=== PATIENT | male | born 1955 | race Caucasian/White ===

== ENCOUNTER → 2020-02-19 13:43 | Outpatient (BNVA) | payer MEDICARE, OTHER, SELFPAY | PROVIDERS: PCP Internal Medicine; Referring Provider Internal Medicine; Visit Provider Internal Medicine | DX: I47.1 Supraventricular tachycardia (principal); G47.33 Obstructive sleep apnea (adult) (pediatric); Z99.89 Dependence on other enabling machines and devices | CPT/HCPCS: 99214 ==

== ENCOUNTER 2020-03-31 12:34 | Outpatient (REF) | payer MEDICARE, OTHER, SELFPAY ==
[2020-03-31 14:02] LABS: Estimated Average Glucose 123 mg/dL; Hemoglobin A1C 151.0802 umol/L; Hemoglobin A1c % 5.9 %
[2020-03-31 14:08] LABS: Anion Gap 11 (12-20); Blood Urea Nitrogen 10 mg/dL (9-16); Calcium 9.1 mg/dL (8.4-10.2); Carbon Dioxide 29 mmol/L (22-29); Chloride 102 mmol/L (96-108); Estimated Glomerular Filt Rate > 60; Glucose Random 103 mg/dL (60-115); Potassium 4.7 mmol/l (3.3-5.1); Sodium 137 mmol/L (135-145)
== END 2020-03-31 12:35 | disposition home or self-care (01) ==
LOC: HO.10HDL 12:34
PROVIDERS: Visit Provider Internal Medicine
DX: R73.03 Prediabetes (principal); I10 Essential (primary) hypertension
CPT/HCPCS: 80048; 83036

== ENCOUNTER 2020-07-12 14:51 | Outpatient (REF) | payer MEDICARE, OTHER, SELFPAY ==
--- NOTE | ~2020-07-12 | US_ITS ---
EXAMINATION: US RETROPERITONEAL LIMITED (RENAL ONLY) CLINICAL INFORMATION: Status post partial right nephrectomy. Renal stone. COMPARISON: Renal ultrasound 09/26/2019. TECHNIQUE: Routine grayscale imaging of kidneys was performed. FINDINGS: RIGHT KIDNEY: 9.1 x 6.9 x 5.3 cm (SAG x AP x TRV). The kidney is normal in size, contour, and echogenicity. Renal cortical thickness is normal. There are multiple echogenic foci scattered throughout the kidney, question vascular calcifications. There is an anechoic cyst midpole measuring 1.1 x 1.1 x 1.1 cm. There is no caliectasis or hydronephrosis. LEFT KIDNEY: 14.3 x 6.4 x 7.2 cm (SAG x AP x TRV). The kidney is normal in size, contour, and echogenicity. Renal cortical thickness is normal. There are scattered anechoic cysts. Upper pole cyst medially measures 2.0 x 1.6 x 2.2 cm. A lower pole cyst measures 1.1 x 1.0 x 1.5 cm. A lower pole lateral cyst measures 1.8 x 1.6 x 1.8 cm. Partially exophytic cyst lower pole left kidney measures 1.7 x 1.6 x 1.7 cm. There is an echogenic stone versus vascular calcification upper/midpole. It measures 0.8 x 0.6 x 0.7 cm. US/US renal BI IMPRESSION: Multiple cysts left kidney. Small echogenic stone versus vascular calcification upper/midpole left kidney. No caliectasis or hydronephrosis. Multiple echogenic foci are seen in the right kidney without caliectasis or hydronephrosis. Midpole right renal cyst seen previously not visualized on the present exam.
[2020-07-12 18:03] LABS: Prostate Specific Antigen < 0.05 ng/mL (<0.05-4.0)
== END 2020-07-12 14:52 | disposition home or self-care (01) ==
LOC: HO.US 14:51
PROVIDERS: PCP Internal Medicine; Visit Provider Urology
DX: Z12.5 Encounter for screening for malignant neoplasm of prostate (principal); N20.0 Calculus of kidney; C61 Malignant neoplasm of prostate
CPT/HCPCS: 36415; 76775; 84153

== ENCOUNTER → 2020-07-21 08:33 | Outpatient (BNVA) | payer MEDICARE, OTHER, SELFPAY | PROVIDERS: PCP Internal Medicine; Visit Provider Urology | DX: Z13.89 Encounter for screening for other disorder (principal) | CPT/HCPCS: Q3014 ==

== ENCOUNTER → 2020-08-19 10:47 | Outpatient (BNVA) | payer MEDICARE, OTHER, SELFPAY | PROVIDERS: PCP Internal Medicine; Visit Provider Internal Medicine | DX: I47.1 Supraventricular tachycardia (principal); G47.33 Obstructive sleep apnea (adult) (pediatric); Z99.89 Dependence on other enabling machines and devices | CPT/HCPCS: 93005; 99212 ==

== ENCOUNTER 2020-09-30 10:43 | Emergency (ER) | payer MEDICARE, OTHER, SELFPAY ==
--- NOTE | ~2020-09-30 | CT_ITS ---
EXAMINATION: CT ABDOMEN AND PELVIS WITHOUT CONTRAST CLINICAL INFORMATION: Right flank pain. COMPARISON: Renal ultrasound 07/12/2020, CT abdomen and pelvis noncontrast 10/03/2017 TECHNIQUE: Multidetector volumetric imaging was performed from the superior aspect of the liver through the pubic symphysis. Sagittal and coronal reformatted images were obtained on the technologist's workstation. This CT examination was performed using dose optimization techniques as appropriate, variously including the following: *Automated exposure control *Adjustment of mA and/or kV according to patient size (this includes techniques or standardized protocols for targeted exams where dose is matched to indication/reason for exam; i.e. extremities or head) *Use of iterative reconstruction technique DLP: 1062 mGy-cm FINDINGS: LUNG BASES: Respiratory motion artifact. No airspace consolidation or effusion. LIVER, GALLBLADDER, AND BILIARY TREE: Upper limits of normal size similar to prior exam. Liver surface is smooth. Parenchyma homogeneous. No focal hepatic parenchymal lesion or intrahepatic ductal dilatation. Prior cholecystectomy. Common duct unremarkable. PANCREAS: Unremarkable. SPLEEN: Normal in size. Multiple calcified splenic granulomata are again noted. ADRENAL GLANDS: Unremarkable. KIDNEYS AND URETERS: The kidneys are similar to prior exam. Again, there is scarring lower pole right kidney, scattered small renal cysts, and multiple bilateral punctate nonobstructing intrarenal calculi. There are no ureteral calculi. No right hydronephrosis. Mild fullness left collecting system is seen. BLADDER: Unremarkable. GASTROINTESTINAL TRACT: There is no bowel obstruction or inflammatory changes in the bowel or mesentery. The appendix is not seen with certainty. There are no inflammatory changes around the terminal ileum or cecum. No ascites or fluid collection. No pneumatosis or free air. ABDOMINAL WALL: No significant hernia is appreciated. Borderline fat-containing umbilical hernia under 2 cm. LYMPH NODES: No lymphadenopathy. VASCULAR: Unremarkable. PELVIC VISCERA: Unremarkable. OSSEOUS STRUCTURES: Degenerative changes lumbosacral spine with vacuum disc L5-S1 and facet degeneration L4-S1. Bilateral L5 spondylolysis. No spondylolisthesis. CT/CT abdomen pelvis wo con IMPRESSION: 1. Multiple small bilateral intrarenal nonobstructing calculi. No ureteral calculi. No right hydronephrosis. Mild fullness left collecting system. Old scarring right renal lower pole. 2. Prior cholecystectomy. No ductal dilatation. 3. No bowel obstruction or inflammatory changes in bowel or mesentery.
[2020-09-30 11:09] VITALS: BP 167/91; PULSE 72; RESP 18; TEMP 36.6; O2SAT 96; BMI 40.7
[2020-09-30 11:40] LABS: Glucose Urine UA NEG (NEG); Leukocyte Esterase Urine NEG (NEG); Nitrite Urine NEG (NEG); PH 5.5 (5.0-8.0); Specific Gravity - Urine 1.025 (1.005-1.025); Urine Blood 3+ (NEG); Urine Ketones NEG (NEG); Urine Protein 1+ MG/DL (NEG-TRACE)
[2020-09-30 11:42] LABS: Appearance Urine CLOUDY; Color Urine RED
[2020-09-30 11:49] LABS: WBC Urine 0 /HPF (0-4)
[2020-09-30 11:50] LABS: Squamous Epithelial Cell Urine TRACE /LPF
--- NOTE | 2020-09-30 12:10 | ED_ITS ---
HPI - Male Genitourinary General Chief complaint: Urogenital-Male Stated complaint: kidney stones Time Seen by Provider: 09/30/20 12:06 Source: patient Mode of arrival: ambulatory Limitations: no limitations History of Present Illness HPI Narrative: 65 yo male with a past medical history of SVT, BOO on CPAP at night, prostate cancer status post prostatectomy, renal cancer status post partial nephrectomy, kidney stones here with complaints of right flank pain with radiation to the right groin and right testicle x2 days. Patient is complaining of voiding small amounts, frequency but only dribbling. Did have some hematuria this morning and passed a large clot and now is voiding pink urine. No fevers or chills. Does have some nausea no vomiting. Followed by Dr. Crump for recurrent renal stones. Is on Flomax Related Data Home Medications Medication Instructions Recorded Confirmed metoprolol tartrate 50 mg tablet 50 mg PO BID tab 02/19/20 08/19/20 simvastatin 20 mg tablet 20 mg PO DAILY 02/19/20 08/19/20 cholestyramine (with sugar) 4 gram g PO 07/21/20 08/19/20 oral powder Previous Rx's Medication Instructions Recorded diltiazem HCl 120 mg 120 mg PO DAILY #30 cap 02/26/20 capsule,extended release 24 hr allopurinol 100 mg tablet 100 mg PO DAILY 90 Days #90 tab 06/04/20 pyridoxine (vitamin B6) 100 mg 100 mg PO DAILY 90 Days #90 tab 07/21/20 tablet tamsulosin 0.4 mg capsule 0.4 mg PO BEDTIME 30 Days #30 cap 08/31/20 Allergies Allergy/AdvReac Type Severity Reaction Status Date / Time Yeast [YEAST] Allergy Intermediate HIGH Verified 08/19/20 10:59 DOSES-SEES BLACK SPOTS, HOT FLASHES Review of Systems Review of Systems: Yes all other systems are reviewed and are negative Constitutional: Constitutional: Reports no additional constitutional complaints, Denies body ache(s), Denies chills, Denies fever(s), Denies headache(s) and Denies weakness Eyes: Eyes: Reports no additional eye complaints and Denies change in vision ENT: Reports system reviewed and no additional complaints, except as documented, Denies dizziness, Denies headache(s), Denies nasal congestion, Denies nasal discharge and Denies neck pain Cardiovascular: Cardiovascular: Reports no additional cardiovascular complaints, Denies chest pain, Denies leg edema and Denies dyspnea Respiratory: Respiratory: Reports no additional respiratory complaints, Denies cough and Denies dyspnea Gastrointestinal: Gastrointestinal: Reports no additional gastrointestinal complaints, Denies abdominal pain, Denies diarrhea, Denies nausea and Denies vomiting Genitourinary: Genitourinary: Reports hematuria, Reports difficulty urinating, Denies dysuria, Reports flank pain, Reports testicular pain, Reports urinary frequency, Reports urinary hesitancy, Denies urinary incontinence and Reports urinary urgency Musculoskeletal: Musculoskeletal: Reports no additional musculoskeletal complaints, Reports back pain, Denies arthralgias, Denies joint swelling, Denies neck pain, Denies numbness and Denies tingling Integumentary/Breasts: Skin/Breast: Reports system reviewed and no additional complaints, except as docu and Denies rash Neurologic: Reports system reviewed and no additional complaints, except as documented, Denies Abnormal speech present, Denies dizziness, Denies headache(s), Denies numbness, Denies tingling and Denies weakness PMFSH Past Medical History Attestation statement: The following information was validated with the patient. Source: old records reviewed and nursing notes reviewed Medical History BOO on CPAP SVT (supraventricular tachycardia) Surgical History History of biopsy of bladder History of laparoscopic cholecystectomy (09/22/15) History of partial nephrectomy (~2001) History of prostatectomy (~2004) Family History Family History Father No problems noted. Mother No problems noted. Social History Social History Smoking Status: Never smoker Advance Directives: Yes Advance Directives Information Provided: No Advance Directives on File: No Physical Exam Vital Signs: Vital Signs: Last Vital Signs Temp 97.8 F 09/30/20 11:09 Pulse 72 09/30/20 11:09 Resp 18 09/30/20 11:09 BP 167/91 H 09/30/20 11:09 Pulse Ox 96 09/30/20 11:09 Body Mass Index 40.7 Const: General: cooperative, healthy appearing, comfortable and no acute distress Orientation/consciousness: patient oriented x3 Limitations: no limitations HENMT: Head: Yes normal to inspection Ears: hearing grossly normal bilaterally General nose exam: Normal external nose present Face and sinus: Yes normal facial exam Mouth: Normal oral and palatal mucosa present Throat: Yes posterior oropharynx normal Eyes: General: appearance normal, both eyes and all related structures Pupils: Equal, round and reactive pupils present Neck: Neck: Yes normal visual inspection Chest: Chest palpation & inspection: normal inspection of the chest Resp: Effort & Inspection: normal respiratory effort Auscultation: clear to auscultation bilaterally Cardio: Rate: regular rate Rhythm: regular rhythm Peripheral pulses: Peripheral pulses 2+ throughout GI: Inspection: Yes normal to inspection Palpation (GI): Soft to palpation and Tenderness to palpation present (GI) (mild R groin/no guarding ) Auscultation: normal bowel sounds : General: Yes no CVA tenderness Male General Exam: Yes normal external exam Back/Spine/Pelvis: Back: no CVA tenderness Thoracic/Lumbar Spine: thoracic and lumbar spine normal to inspection Skin: General skin exam: no rashes or lesions noted Neuro: General: patient oriented x3, no focal motor deficits and normal sensation to monofilament Cranial nerves: Yes Equal, round and reactive pupils present Cognition (Neuro): normal cognition Speech: No Abnormal speech present Gait exam (Neuro): Normal gait present Motor exam (neuro): 5/5 motor strength present throughout Extrem: General: Yes normal to inspection, Yes no pedal edema and Yes no calf tenderness Course Course Course Narrative: 65-year-old male with a history of renal colic, prostate cancer with stricture, renal cancer with partial nephrectomy on the right ear with complaints of right flank pain with radiation to the right testicle and right groin with urinary urgency, frequency, voiding small amounts and an episode of hematuria this morning with a large clot passed. Urine is now pink color. On exam the patient has some mild tenderness in the right groin. No obvious CVAT. Hemodynamically stable. Will need labs, UA, postvoid residual ultrasound, CTA/P. Will place PIV for NSB, IV toradol. 1300-patient called me into the room. He had a voiding episode urgency and some discomfort and feels like he passed a stone. Urinal shows a small stone in the base the urinal. 1357-CT shows no obstructing kidney stone. It does show multiple stones within the kidneys and a copy of the report was given to the patient. After passing the kidney stone here the patient is feeling much better and his pain is resolved. He is now voiding normally with no difficulty. Reviewed worrisome signs/symptoms and when to return to ED. Comfortable with discharge home. MDM - Male Genitourinary MDM Narrative Medical decision making narrative: Renal colic, UTI, pyelonephritis Medical Records Attestation: I reviewed the patient's medical records. Lab Data Attestation: I reviewed the patient's lab results. Result diagrams: 09/30/20 13:00 09/30/20 13:00 Labs: Lab Results 09/30/20 09/30/20 09/30/20 Range/Units 11:21 13:00 13:00 WBC 14.5 H (4.8-10.8) X10*3/uL RBC 4.93 (4.60-5.80) X10*6/uL Hgb 15.0 (14.0-18.0) g/dl Hct 46.2 (42-52) % MCV 93.7 (80-98) fL MCH 30.4 (27.0-33.0) pg MCHC 32.5 (31.0-36.0) g/dl RDW 13.2 (11.0-16.0) % Plt Count 242 (160-400) X10*3/uL MPV 8.7 L (9.4-12.4) fL Immature Gran % (Auto) 0.4 (0.0-0.4) % Neut % (Auto) 86.4 H (45-73) % Lymph % (Auto) 6.8 L (20-40) % Garfield % (Auto) 6.2 (2-11) % Eos % (Auto) 0.0 (0-4) % Baso % (Auto) 0.2 (0-2) % Lymph # (Auto) 1.0 L (1.2-4.9) X10*3/uL Garfield # (Auto) 0.9 (0.1-1.2) X10*3/uL Eos # (Auto) 0.0 (0.0-0.4) X10*3/uL Baso # (Auto) 0.0 (0.0-0.2) X10*3/uL Abs Immat Gran (auto) 0.06 H (0.00-0.03) X10*3/uL Absolute Neuts (auto) 12.5 H (2.0-8.3) X10*3/uL Absolute Nucleated RBC 0.000 (0.0-0.012) X10*3/uL Nucleated RBC % (auto) 0.0 (0.0-0.2) /100WBC Hold Blue Top SEE NOTE Sodium (135-145) mmol/L Potassium (3.3-5.1) mmol/L Chloride (96-108) mmol/L Carbon Dioxide (22-29) mmol/L Anion Gap (12-20) BUN (9-16) mg/dL Creatinine (0.5-1.4) mg/dL Estim Creat Clear Calc Estimated GFR Random Glucose (60-115) mg/dL Calcium (8.4-10.2) mg/dL Urine Color RED Urine Appearance CLOUDY Urine pH 5.5 (5.0-8.0) Ur Specific Mchenry 1.025 (1.005-1.025) Urine Protein 1+ H (NEG-TRACE) MG/DL Urine Glucose (UA) NEG (NEG) MG/DL Urine Ketones NEG (NEG) MG/DL Urine Blood 3+ H (NEG) Urine Nitrite NEG (NEG) Ur Leukocyte Esterase NEG (NEG) Urine RBC 76-150 H (0) /HPF Urine WBC 0 (0-4) /HPF Ur Squamous Epith Cells TRACE /LPF Urine Bacteria NONE /LPF 09/30/20 Range/Units 13:00 WBC (4.8-10.8) X10*3/uL RBC (4.60-5.80) X10*6/uL Hgb (14.0-18.0) g/dl Hct (42-52) % MCV (80-98) fL MCH (27.0-33.0) pg MCHC (31.0-36.0) g/dl RDW (11.0-16.0) % Plt Count (160-400) X10*3/uL MPV (9.4-12.4) fL Immature Gran % (Auto) (0.0-0.4) % Neut % (Auto) (45-73) % Lymph % (Auto) (20-40) % Garfield % (Auto) (2-11) % Eos % (Auto) (0-4) % Baso % (Auto) (0-2) % Lymph # (Auto) (1.2-4.9) X10*3/uL Garfield # (Auto) (0.1-1.2) X10*3/uL Eos # (Auto) (0.0-0.4) X10*3/uL Baso # (Auto) (0.0-0.2) X10*3/uL Abs Immat Gran (auto) (0.00-0.03) X10*3/uL Absolute Neuts (auto) (2.0-8.3) X10*3/uL Absolute Nucleated RBC (0.0-0.012) X10*3/uL Nucleated RBC % (auto) (0.0-0.2) /100WBC Hold Blue Top Sodium 139 (135-145) mmol/L Potassium 4.7 (3.3-5.1) mmol/L Chloride 103 (96-108) mmol/L Carbon Dioxide 27 (22-29) mmol/L Anion Gap 14 (12-20) BUN 14 (9-16) mg/dL Creatinine 1.05 (0.5-1.4) mg/dL Estim Creat Clear Calc 92.0 Estimated GFR > 60 Random Glucose 113 (60-115) mg/dL Calcium 9.7 D (8.4-10.2) mg/dL Urine Color Urine Appearance Urine pH (5.0-8.0) Ur Specific Mchenry (1.005-1.025) Urine Protein (NEG-TRACE) MG/DL Urine Glucose (UA) (NEG) MG/DL Urine Ketones (NEG) MG/DL Urine Blood (NEG) Urine Nitrite (NEG) Ur Leukocyte Esterase (NEG) Urine RBC (0) /HPF Urine WBC (0-4) /HPF Ur Squamous Epith Cells /LPF Urine Bacteria /LPF Imaging Data CT scan - abdomen: Attestation: I personally reviewed and interpreted this imaging study as follows: Radiologist's impression: IMPRESSION: 1. Multiple small bilateral intrarenal nonobstructing calculi. No ureteral calculi. No right hydronephrosis. Mild fullness left collecting system. Old scarring right renal lower pole. 2. Prior cholecystectomy. No ductal dilatation. 3. No bowel obstruction or inflammatory changes in bowel or mesentery. Discharge Plan Discharge Clinical Impression: Renal colic on right side Patient Disposition: Home, Self-Care Instructions: Renal Colic (ED) Additional Instructions: You passed your kidney stone while you are here in the emergency department. Your CT does show multiple kidney stones but these are in the kidneys and not in the ureter. Increase fluids, rest Follow-up with your urologist as needed Prescriptions: No Action diltiazem HCl 120 mg capsule,extended release 24hr 120 mg PO DAILY Qty: 30 RF: 5 allopurinol 100 mg tablet 100 mg PO DAILY 90 Days Qty: 90 RF: 2 tamsulosin 0.4 mg capsule 0.4 mg PO BEDTIME 30 Days Qty: 30 RF: 11 cholestyramine (with sugar) 4 gram powder PO RF: 0 pyridoxine (vitamin B6) 100 mg tablet 100 mg PO DAILY 90 Days Qty: 90 RF: 1 metoprolol tartrate 50 mg tablet 50 mg PO BID RF: 0 simvastatin 20 mg tablet 20 mg PO DAILY RF: 0 Referrals: Yehuda Crump MD [Physician] - 1 week (as needed) Interventions: ED Discharge Assessment Last Done: 09/30/20 14:18 Discharge Date/Time: 09/30/20 14:18
[2020-09-30] MEDS: Ketorolac Tromethamine 30 MG/ML VIAL IVPUSH (13:03)
[2020-09-30 13:04] LABS: MANUAL DIFF FLAG NO
[2020-09-30 13:05] LABS: Basophils Percent Auto 0.2 % (0-2); Hematocrit 46.2 % (42-52); Imm Gran Abs Auto 0.06 X10*3/uL (0.00-0.03); Imm Gran Pct Auto 0.4 % (0.0-0.4); Lymphocytes Percent Auto 6.8 % (20-40); Mean Corpuscular HGB Conc 32.5 g/dl (31.0-36.0); Mean Corpuscular Hemoglobin 30.4 pg (27.0-33.0); Mean Corpuscular Volume 93.7 fL (80-98); Mean Platelet Volume 8.7 fL (9.4-12.4); Monocytes Absolute Auto 0.9 X10*3/uL (0.1-1.2); Monocytes Percent Auto 6.2 % (2-11); Neutrophils Absolute Auto 12.5 X10*3/uL (2.0-8.3); Neutrophils Percent Auto 86.4 % (45-73); Platelet Count 242 X10*3/uL (160-400); Red Blood Count 4.93 X10*6/uL (4.60-5.80); Red Cell Distribution Width 13.2 % (11.0-16.0); White Blood Count 14.5 X10*3/uL (4.8-10.8)
[2020-09-30] MEDS: 0.9 % Sodium Chloride 500 ML 999 ML IV (13:05)
[2020-09-30 13:37] LABS: Anion Gap 14 (12-20); Blood Urea Nitrogen 14 mg/dL (9-16); Calcium 9.7 mg/dL (8.4-10.2); Carbon Dioxide 27 mmol/L (22-29); Chloride 103 mmol/L (96-108); Estimated Glomerular Filt Rate > 60; Glucose Random 113 mg/dL (60-115); Potassium 4.7 mmol/L (3.3-5.1); Sodium 139 mmol/L (135-145)
== END 2020-09-30 14:18 | disposition home or self-care (01) ==
PROVIDERS: Emergency Provider Emergency Medicine Emergency Medical Services; PCP Internal Medicine
DX: N20.0 Calculus of kidney (principal); Z87.442 Personal history of urinary calculi; Z90.49 Acquired absence of other specified parts of digestive tract; Z85.528 Personal history of other malignant neoplasm of kidney; Z85.46 Personal history of malignant neoplasm of prostate
CPT/HCPCS: 36415; 51798; 74176; 80048; 81001; 85025; 96361; 96374; 99283; 99284; J1885

== ENCOUNTER → 2020-12-16 12:25 | Outpatient (BNVA) | payer MEDICARE, OTHER, SELFPAY | PROVIDERS: Visit Provider Urology | DX: Z13.89 Encounter for screening for other disorder (principal) | CPT/HCPCS: 99212 ==

== ENCOUNTER 2020-12-31 10:14 | Outpatient (REF) | payer MEDICARE, OTHER, SELFPAY ==
[2020-12-31 11:33] LABS: Influenza A PCR NEGATIVE (Negative); Influenza B PCR NEGATIVE (Negative); Resp Syncy Virus RNA Qual PCR NEGATIVE (Negative); SARS COV2 PCR INHOUSE NEGATIVE (Negative)
== END 2020-12-31 10:15 | disposition home or self-care (01) ==
LOC: HO.LNP 10:14
PROVIDERS: Visit Provider Internal Medicine
DX: Z20.822 Contact with and (suspected) exposure to COVID-19 (principal); R51.9 Headache, unspecified; M79.10 Myalgia, unspecified site
CPT/HCPCS: 0241U

== ENCOUNTER 2021-01-18 12:32 | Outpatient (REF) | payer MEDICARE, OTHER, SELFPAY ==
[2021-01-18 14:25] LABS: Prostate Specific Antigen < 0.05 ng/mL (<0.05-4.0)
== END 2021-01-18 12:33 | disposition home or self-care (01) ==
LOC: HO.LAB 12:32
PROVIDERS: PCP Internal Medicine; Visit Provider Urology
DX: Z12.5 Encounter for screening for malignant neoplasm of prostate (principal); C61 Malignant neoplasm of prostate; N40.1 Benign prostatic hyperplasia with lower urinary tract symptoms; N13.8 Other obstructive and reflux uropathy
CPT/HCPCS: 36415; 84153

== ENCOUNTER 2021-01-21 09:48 | Outpatient (REF) | payer MEDICARE, OTHER, SELFPAY ==
--- NOTE | ~2021-01-21 | US_ITS ---
EXAMINATION: US RETROPERITONEAL LIMITED (RENAL ONLY) CLINICAL INFORMATION: Calculus of kidney. COMPARISON: CT abdomen and pelvis without contrast dated 09/30/2020. Ultrasound 07/12/2020 TECHNIQUE: Real-time imaging of the kidneys. FINDINGS: RIGHT KIDNEY: 9.5 x 5.7 x 6.3 cm (SAG x AP x TRV). The kidney is normal in size, contour, and echogenicity. Renal cortical thickness is normal. No renal calculi or hydronephrosis. 1.2 cm right lower pole simple renal cyst. There is a 1.1 cm lower pole cyst with a single thin septation. There is a 9 mm echogenic, shadowing left lower pole calculus. LEFT KIDNEY: 13.5 x 6.6 x 6.6 cm (SAG x AP x TRV). The kidney is normal in size, contour, and echogenicity. Renal cortical thickness is normal. No hydronephrosis. 2.1 cm left mid renal cyst. There is a 1.7 cm simple cyst of the lateral cortex of the left mid kidney. 3 mm echogenic, shadowing left lower pole calculus and a 4 mm echogenic, shadowing calculus in the left mid kidney. US/US renal BI IMPRESSION: Bilateral renal calculi up to 9 mm on the right, 4 mm on the left. Bilateral renal cysts. There is a 1.1 cm right lower pole cyst with a single thin septation.
== END 2021-01-21 09:49 | disposition home or self-care (01) ==
LOC: HO.HMGCX 09:48
PROVIDERS: PCP Internal Medicine; Visit Provider Urology
DX: C64.9 Malignant neoplasm of unspecified kidney, except renal pelvis (principal); N20.0 Calculus of kidney
CPT/HCPCS: 76775

== ENCOUNTER → 2021-01-25 08:45 | Outpatient (BNVA) | payer MEDICARE, OTHER, SELFPAY | PROVIDERS: Visit Provider Urology | DX: C61 Malignant neoplasm of prostate (principal); C64.9 Malignant neoplasm of unspecified kidney, except renal pelvis; N20.0 Calculus of kidney | CPT/HCPCS: 99212 ==

== ENCOUNTER 2021-07-08 09:43 | Outpatient (REF) | payer MEDICARE, OTHER, SELFPAY ==
--- NOTE | ~2021-07-08 | US_ITS ---
EXAMINATION: US RETROPERITONEAL LIMITED (RENAL ONLY) CLINICAL INFORMATION: Calculus of kidney. History of partial right nephrectomy. COMPARISON: Renal ultrasound 01/21/2021 and 07/12/2020. CT abdomen and pelvis 09/30/2020. TECHNIQUE: Real-time imaging of the kidneys. FINDINGS: RIGHT KIDNEY: 9.6 x 5.8 x 6.5 cm (SAG x AP x TRV). The kidney is normal in size, contour, and echogenicity. There is cortical thinning in the lower pole the right kidney probably related to history of partial nephrectomy. There is a 1.5 cm complex cyst in the upper pole. This appears increased in size and more complex than seen on January 2021 exam when this measured 1.2 cm. There are 3 simple appearing cysts, largest measuring 8 mm in the upper pole. There is a small 5 mm stone in the midpole. No hydronephrosis. LEFT KIDNEY: 14.1 x 6.1 x 6.0 cm (SAG x AP x TRV). The kidney is normal in size, contour, and echogenicity. Renal cortical thickness is normal. There are 3 cysts, largest measuring 2 x 1.4 x 1.8 cm exophytic to the midpole. There is a 3 mm stone in the midpole. No hydronephrosis. US/US renal BI IMPRESSION: 1.5 cm complex cyst in the upper pole of the right kidney. This appears increased in size and complexity compared to previous renal ultrasound January 2021. Follow-up CT or MR with and without contrast recommended. Small bilateral simple cysts. Small bilateral renal stones.
== END 2021-07-08 09:44 | disposition home or self-care (01) ==
LOC: HO.HMGCX 09:43
PROVIDERS: PCP Internal Medicine; Visit Provider Urology
DX: N20.0 Calculus of kidney (principal)
CPT/HCPCS: 76775

== ENCOUNTER → 2021-07-22 08:39 | Outpatient (BNVA) | payer MEDICARE, OTHER, SELFPAY | PROVIDERS: PCP Internal Medicine; Visit Provider Urology | DX: C61 Malignant neoplasm of prostate (principal); C64.9 Malignant neoplasm of unspecified kidney, except renal pelvis; N20.0 Calculus of kidney | CPT/HCPCS: Q3014 ==

== ENCOUNTER 2021-08-22 06:32 | Day surgery (SDC) | payer MEDICARE, OTHER, SELFPAY ==
--- NOTE | 2021-08-18 14:15 | HO.ANESPROP2 ---
Documented by User: Melba Gates NP 08/18/21 14:17 HPI - Anesthesia Eval Consult details Narrative: 66yo M for Colonoscopy PMFSH Active Problems Active Problems: All Active Problems (Updated 05/19/21 @ 14:14 by Makayla Buchanan, DARRELL) Prostate cancer (Acute) Renal cancer (Acute) Nephrolithiasis (Acute) BOO on CPAP (Acute) SVT (supraventricular tachycardia) (Acute) Past Medical History Medical History BPH loc w urin obs/LUTS Gallstones HTN (hypertension) Hyperlipidemia Obstructive sleep apnea (adult) (pediatric) On beta priya at home BOO on CPAP Prostate cancer Radiation cystitis Renal cancer Renal stones Sinus headache SVT (supraventricular tachycardia) Family History Family History Father No problems noted. Mother No problems noted. Surgical History Surgical History History of biopsy of bladder History of colonoscopy History of laparoscopic cholecystectomy History of lithotripsy History of partial nephrectomy History of prostatectomy Social History Social History Are you a primary child care teacher to a significant other at home: No Do you presently have visiting nurse or other home services: No Patient Tobacco Use Status: Never used Tobacco Use of substances other than those prescribed or required for medical reasons: No Advance Directives: No Advance Directives Information Provided: Yes Recently lost weight without trying: No Meds Allergies Allergy/AdvReac Type Severity Reaction Status Date / Time Yeast [YEAST] Allergy Intermediate HIGH Verified 07/22/21 08:40 DOSES-SEES BLACK SPOTS, HOT FLASHES Home Medications Medication Instructions Recorded Confirmed Last Taken Type metoprolol tartrate 50 mg tablet 50 mg PO BID tab 02/19/20 05/19/21 Unknown History simvastatin 20 mg tablet 20 mg PO DAILY 02/19/20 05/19/21 Unknown History cholestyramine (with sugar) 4 gram g PO PRN 07/21/20 12/16/20 Unknown History oral powder ibuprofen 200 mg tablet 400 mg PO Q8H PRN 05/19/21 Unknown History dicyclomine 10 mg capsule 10 mg PO Q6H PRN 07/22/21 Unknown History Exam Exam Date and Time: August 18, 2021 1415 Narrative Narrative: EKG 08/2020 sinus rhythm at 64/Min; no significant ST-T changes and otherwise unremarkable. Assessment and Plan Assessment Anesthesia Assessment: Chart Reviewed Documented by User: Román Chance MD 08/22/21 07:13 [facility] Past Medical History Medical History BPH loc w urin obs/LUTS Gallstones HTN (hypertension) Hyperlipidemia Obstructive sleep apnea (adult) (pediatric) On beta priya at home BOO on CPAP Prostate cancer Radiation cystitis Renal cancer Renal stones Sinus headache SVT (supraventricular tachycardia) Family History Family History Father No problems noted. Mother No problems noted. Family history of problems with anesthesia: No Surgical History Surgical History History of biopsy of bladder History of colonoscopy History of laparoscopic cholecystectomy History of lithotripsy History of partial nephrectomy History of prostatectomy History of Problems with Anesthesia: No Social History Social History Are you a primary child care teacher to a significant other at home: No Do you presently have visiting nurse or other home services: No Patient Tobacco Use Status: Never used Tobacco Use of substances other than those prescribed or required for medical reasons: No Advance Directives: No Advance Directives Information Provided: Yes Recently lost weight without trying: No Meds Allergies Allergy/AdvReac Type Severity Reaction Status Date / Time Yeast [YEAST] Allergy Intermediate HIGH Verified 07/22/21 08:40 DOSES-SEES BLACK SPOTS, HOT FLASHES Home Medications Medication Instructions Recorded Confirmed Last Taken Type metoprolol tartrate 50 mg tablet 50 mg PO BID tab 02/19/20 05/19/21 Unknown History simvastatin 20 mg tablet 20 mg PO DAILY 02/19/20 05/19/21 Unknown History cholestyramine (with sugar) 4 gram g PO PRN 07/21/20 12/16/20 Unknown History oral powder ibuprofen 200 mg tablet 400 mg PO Q8H PRN 05/19/21 Unknown History dicyclomine 10 mg capsule 10 mg PO Q6H PRN 07/22/21 Unknown History Exam Airway Mallampati Class: III TM Dist: >3cm Neck ROM: Full Loose/Missing/Broken Teeth: Yes (chipped teeth upper and lower) Heart: [id number] Lungs: cta b/l Assessment and Plan Assessment Anesthesia Assessment: Anesthesia Plan Discussed Final Anesthetic Review Family History of Problems with Anesthesia: No History of Problems with Anesthesia: No NPO: Yes ASA Class: III Final Preanesthetic Review: No Changes in Pt Med Stat, Meds/Allgs Chart Reviewed, Consent Obtained/Reviewed and Anes Risks/Benef Reviewed Patient Risk: Intermediate Procedure Risk: Low Assessment/Block/Sedation in SS: Assess/Block/Sedation-SS Anesthetic Plan Anesthetic Plan: MAC: and Agree w/ Assess. and Plan Disposition: Standard PACU
[2021-08-22 06:43] VITALS: BP 126/69; PULSE 74; RESP 17; TEMP 36.4; O2SAT 97; BMI 35.7
[2021-08-22] MEDS: Lactated Ringers 1,000 ML 100 ML IVCONT (07:06)
[2021-08-22 08:25] VITALS: BP 98/50; PULSE 69; RESP 16; TEMP 36.2; O2SAT 93
--- NOTE | 2021-08-22 08:32 | PM.OP ---
Brief Operative Note Date of Service: 08/22/21 Pre-op diagnosis: Screening, Diarrhea Post-op diagnosis: other (Colon polyps, R/O microscopic colitis) Procedure: Colonoscopy to the cecum with bx, bx/removal of polyps, and cold snare polypectomy of TC polyp. Surgeon: Milton Moncada Anesthesia: MAC Was an Felled Seam Operator Chainstitch used for this Procedure?: No Estimated blood loss (mL): 2.0 Pathology: other (A. Cecal polyp B. Ascending colon C. Asc. colon polyps D. Transverse colon polyps E. Descending colon) Condition: stable Disposition: PACU
[2021-08-22 08:40] VITALS: BP 112/64; PULSE 76; RESP 18; TEMP 36.2; O2SAT 97
--- NOTE | 2021-08-22 08:58 | OP_ITS ---
SURGEON: Milton Moncada MD INDICATIONS: The patient presents for evaluation of colorectal cancer screening and diarrhea. Full consent has been obtained from him for this, including risks of bleeding and perforation. PREOPERATIVE DIAGNOSIS: Colorectal cancer screening and diarrhea. POSTOPERATIVE DIAGNOSIS: PROCEDURE PERFORMED: Colonoscopy to the cecum with biopsies, biopsy removal of polyps, and cold snare polypectomy. ESTIMATED BLOOD LOSS: COMPLICATIONS: ANESTHESIA: Medication used, monitored anesthesia care. 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 DESCRIPTION OF PROCEDURE: The patient was placed in the left lateral decubitus position. The digital rectal exam revealed no abnormalities. The Olympus video pediatric colonoscope was entered into the rectum and advanced easily to the cecum. Once in the cecum, I did identify cecal pouch with appendiceal orifice and a normal-appearing ileocecal valve. The entire cecum was well visualized. There was a 3 mm polyp in the cecum, which was removed with cold biopsy forceps completely. The remainder of the cecum appeared normal. The scope was then slowly withdrawn assessing all mucosal surfaces carefully. Preparation was excellent. I did not visualize any sign of colitis nor angiodysplasia. Random biopsies were obtained in the ascending and descending colon to rule out microscopic colitis. In the ascending colon were 2 less than 5 mm polyps, which each removed completely with cold biopsy forceps. In the transverse colon was a 3 mm polyp, which was biopsied and removed completely with a cold biopsy forceps. There was also an approximately 6 mm polyp, which was removed completely with a cold snare polypectomy and recovered by suction. I did not visualize any other polyps. In the rectum, the scope was retroflexed visualizing some distal rectal telangiectasias consistent with his previous radiation treatment. Also noted was some internal hemorrhoids. The scope was straightened and withdrawn from the patient. He tolerated the procedure well and was returned to the recovery area in stable condition. IMPRESSION: 1. Colon polyps. 2. Diverticulosis. 3. Rule out microscopic colitis. 4. Internal hemorrhoids. 5. 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 PLAN: The results of the pathology will be checked. If any of the polyp is a tubular adenoma, I would recommend a followup colonoscopy in 5 years. He will currently continue dicyclomine for his irregular bowel movements as he does report that is helping him. If things are stable, he will see me on a p.r.n. basis. He was advised not to use any aspirin and NSAIDs for 1 week. This has been discussed with his . MD CORY Martinez/ANDRES / [id number]
== END 2021-08-22 09:16 | disposition home or self-care (01) ==
PROVIDERS: PCP Internal Medicine; Visit Provider Internal Medicine
PROC: 0DJD8ZZ Inspection of Lower Intestinal Tract, Via Natural or Artificial Opening Endoscopic (ICD-10-PCS; CPT 45378; principal; 2021-08-22 07:30)
DX: Z12.11 Encounter for screening for malignant neoplasm of colon (principal); R19.7 Diarrhea, unspecified; D12.2 Benign neoplasm of ascending colon; D12.0 Benign neoplasm of cecum; D12.3 Benign neoplasm of transverse colon; K57.30 Diverticulosis of large intestine without perforation or abscess without bleeding; K62.7 Radiation proctitis; K64.8 Other hemorrhoids; E78.5 Hyperlipidemia, unspecified; Z86.010 Personal history of colon polyps; Z85.528 Personal history of other malignant neoplasm of kidney; Z85.46 Personal history of malignant neoplasm of prostate; Z79.899 Other long term (current) drug therapy
CPT/HCPCS: 45385; 45380; 88305

== ENCOUNTER 2021-09-21 15:04 | Outpatient (REF) | payer MEDICARE, OTHER, SELFPAY ==
[2021-09-21 15:51] LABS: Influenza A PCR NEGATIVE (Negative); Influenza B PCR NEGATIVE (Negative); Resp Syncy Virus RNA Qual PCR NEGATIVE (Negative); SARS COV2 PCR INHOUSE NEGATIVE (Negative)
== END 2021-09-21 15:05 | disposition home or self-care (01) ==
LOC: HO.LNP 15:04
PROVIDERS: Visit Provider Internal Medicine
DX: Z20.822 Contact with and (suspected) exposure to COVID-19 (principal); R05.9 Cough, unspecified
CPT/HCPCS: 0241U

== ENCOUNTER 2021-11-25 14:00 | Outpatient (REF) | payer MEDICARE, OTHER, SELFPAY ==
--- NOTE | ~2021-11-25 | MR_ITS ---
EXAMINATION: MRI ABDOMEN WITH AND WITHOUT CONTRAST CLINICAL INFORMATION: History of partial right nephrectomy and prostate cancer. COMPARISON: CT abdomen/pelvis 09/30/2020. TECHNIQUE: Multiple routine MRI sequences through the abdomen were obtained before and after the uneventful administration of 10 mL Gadavist gadolinium-based IV contrast. FINDINGS: LUNG BASES: Lung bases are clear. LIVER: This examination is not targeted to assess for liver lesions, the majority of the liver is outside of the field of view on axial images and only included in its entirely on the coronal T2 images. There is signal loss in the out of phase dual echo images in the visualized portions of the liver suggesting hepatic steatosis. On coronal T2 images, the liver appears normal in size and shape with homogeneous attenuation and a few T2 bright lesions that likely correspond to cysts and are stable when compared to the CT from 2020. GALLBLADDER AND BILIARY TREE: Cholecystectomy. No biliary ductal dilatation. SPLEEN: Normal. PANCREAS: Normal. ADRENAL GLANDS: No adrenal lesion. KIDNEYS AND URETERS: Redemonstration of postoperative changes from prior partial right nephrectomy at the lower pole of the kidney. No evidence of increased soft tissue nodule to suspect tumor recurrence in the postsurgical bed. A 1.9 cm homogeneously T1 bright/T2 dark observation along the anterior surface of the upper to midpole of the left kidney is noted. Postcontrast assessment of this observation is limited in the absence of substractions images given intrinsic T1 activity. However, when correlating with CTs dating back to 2018, this corresponds to a proteinaceous/hemorrhagic cyst, unchanged. There are several other smaller T1 bright/T2 dark observations bilaterally, for instance measuring 0.7 cm in the anterior surface of the midpole of the right kidney (10:38), likely representing additional proteinaceous/hemorrhagic cysts. There are several T2 hyperintense avascular cysts bilaterally, largest exophytically from the lateral surface of the mid to lower pole of the left kidney measuring 1.8 cm (102:55). GASTROINTESTINAL: The imaged bowel is within normal limits. LYMPHOVASCULAR STRUCTURES: Normal caliber aorta. IVC patent. No pathologically enlarged abdominal or retroperitoneal lymphadenopathy by short axis size criteria. OSSEOUS STRUCTURES: Nonaggressive T2 hyperintense lesion in the lower thoracic spine (1:13) likely represents a hemangioma. MR/MR kidney wo/w con IMPRESSION: Postoperative changes from prior partial right nephrectomy without evidence of tumor recurrence in the postoperative bed. No evidence of metastatic disease in the abdomen. Bilateral simple renal cysts, some proteinaceous/hemorrhagic, for which no imaging followup is recommended.
== END 2021-11-25 14:01 | disposition home or self-care (01) ==
LOC: HO.MRI 14:00
PROVIDERS: Visit Provider Urology
DX: C64.9 Malignant neoplasm of unspecified kidney, except renal pelvis (principal)
CPT/HCPCS: 74181; A9585

== ENCOUNTER → 2022-01-30 14:18 | Outpatient (BNVA) | payer MEDICARE, OTHER, SELFPAY | PROVIDERS: PCP Internal Medicine; Referring Provider Internal Medicine; Visit Provider Internal Medicine | DX: I47.1 Supraventricular tachycardia (principal); G47.33 Obstructive sleep apnea (adult) (pediatric); E66.01 Morbid (severe) obesity due to excess calories; Z99.89 Dependence on other enabling machines and devices; Z68.35 Body mass index [BMI] 35.0-35.9, adult | CPT/HCPCS: 93005; 99212 ==

== ENCOUNTER → 2022-03-08 08:41 | Outpatient (BNVA) | payer MEDICARE, OTHER, SELFPAY | PROVIDERS: PCP Internal Medicine; Visit Provider Orthopaedic Surgery | DX: M67.431 Ganglion, right wrist (principal) | CPT/HCPCS: 99202 ==

== ENCOUNTER 2022-03-10 09:51 | Outpatient (REF) | payer MEDICARE, OTHER, SELFPAY ==
--- NOTE | ~2022-03-10 | XR_ITS ---
EXAMINATION: XR SINUSES CLINICAL INFORMATION: Sinus headache COMPARISON: Significant x-ray 01/31/2013 TECHNIQUE: 3 views of the sinuses were obtained. FINDINGS: Asymmetric opacification of the right maxillary sinus suggesting these. Right frontal sinuses are well aerated. Ethmoid sinuses are well aerated. Sphenoid sinus appears well aerated. Mastoid air cells are well aerated. XR/XR sinus min 3V IMPRESSION: Suspected right maxillary sinus disease. This can be further evaluated with sinus CT if clinically indicated.
== END 2022-03-10 09:52 | disposition home or self-care (01) ==
LOC: HO.XRAY 09:51
PROVIDERS: PCP Internal Medicine; Visit Provider Internal Medicine
DX: R51.9 Headache, unspecified (principal)
CPT/HCPCS: 70220

== ENCOUNTER 2022-11-26 23:01 | Emergency (ER) | payer MEDICARE, OTHER, SELFPAY ==
--- NOTE | ~2022-11-26 | CT_ITS ---
EXAMINATION: CT ABDOMEN AND PELVIS WITHOUT CONTRAST CLINICAL INFORMATION: Bilateral flank pain, history of stones COMPARISON: 09/20/2020 TECHNIQUE: Multidetector volumetric imaging was performed from the superior aspect of the liver through the pubic symphysis. Sagittal and coronal reformatted images were obtained on the technologist's workstation. This CT examination was performed using dose optimization techniques as appropriate, variously including the following: *Automated exposure control *Adjustment of mA and/or kV according to patient size (this includes techniques or standardized protocols for targeted exams where dose is matched to indication/reason for exam; i.e. extremities or head) *Use of iterative reconstruction technique DLP: 926 mGy-cm FINDINGS: LUNG BASES: The visualized lung bases are unremarkable. LIVER, GALLBLADDER, AND BILIARY TREE: The liver is normal in size, shape, and attenuation. A few small hepatic hypodensities statistically favor cysts. No biliary ductal dilatation is present. Patient is status post cholecystectomy. PANCREAS: Unremarkable. SPLEEN: Numerous calcified granulomas. ADRENAL GLANDS: Unremarkable. KIDNEYS AND URETERS: No hydronephrosis or obstructing calculus bilaterally. Postoperative changes from partial right nephrectomy. There are several scattered bilateral renal calculi measuring up to 6 mm. Bilateral renal cysts are overall better demonstrated on prior MRI; as noted at that time, no follow-up recommended. BLADDER: Unremarkable. GASTROINTESTINAL TRACT: No evidence of bowel obstruction or significant wall thickening. No free fluid or free air is seen. ABDOMINAL WALL: No significant hernia is appreciated. LYMPH NODES: Normal. VASCULAR: Scattered atherosclerotic calcifications. PELVIC VISCERA: Patient appears to be status post prostatectomy. OSSEOUS STRUCTURES: There are degenerative changes including prominent facet arthropathy in the lower lumbar spine. CT/CT abdomen pelvis wo IV con IMPRESSION: No hydronephrosis or obstructing calculus. Scattered bilateral renal calculi. Chronic and postoperative changes as noted above.
[2022-11-26 23:09] VITALS: BP 160/87; PULSE 72; RESP 18; TEMP 37; O2SAT 98; BMI 36.2
[2022-11-26 23:32] LABS: MANUAL DIFF FLAG NO
[2022-11-26 23:33] LABS: Basophils Percent Auto 0.4 % (0-2); Eosinophils Absolute Auto 0.1 X10*3/uL (0.0-0.4); Hematocrit 45.6 % (42.0-52.0); Hemoglobin 14.7 g/dl (14.0-18.0); Imm Gran Abs Auto 0.03 X10*3/uL (0.00-0.03); Imm Gran Pct Auto 0.3 % (0.0-0.4); Lymphocytes Absolute Auto 2.1 X10*3/uL (1.2-4.9); Lymphocytes Percent Auto 19.7 % (20-40); Mean Corpuscular HGB Conc 32.2 g/dl (31.0-36.0); Mean Corpuscular Hemoglobin 29.6 pg (27.0-33.0); Mean Corpuscular Volume 91.9 fL (80.0-98.0); Mean Platelet Volume 8.5 fL (9.4-12.4); Monocytes Absolute Auto 0.9 X10*3/uL (0.1-1.2); Monocytes Percent Auto 8.4 % (2-11); Neutrophils Absolute Auto 7.4 x10*3/uL (2.0-8.3); Neutrophils Percent Auto 70.2 % (45-73); Platelet Count 243 X10*3/uL (160-400); Red Blood Count 4.96 X10*6/uL (4.60-5.80); Red Cell Distribution Width 12.8 % (11.0-16.0); White Blood Count 10.5 X10*3/uL (4.8-10.8)
[2022-11-26 23:50] LABS: Alanine Aminotransferase 28 U/L (0-40); Albumin Level 4.2 g/dL (3.5-5.0); Alkaline Phosphatase 54 U/L (39-117); Anion Gap 15 (12-20); Aspartate Amino Transferase 24 U/L (5-37); Bilirubin Total 0.4 mg/dL (0.0-1.0); Blood Urea Nitrogen 20 mg/dL (9-16); Calcium 9.6 mg/dL (8.4-10.2); Carbon Dioxide 26 mmol/L (22-29); Chloride 103 mmol/L (96-108); Creatinine Clr Calc Pharmacy 82.5; Estimated Glomerular Filt Rate > 60; Glucose Random 129 mg/dL (60-115); Potassium 4.1 mmol/L (3.3-5.1); Sodium 140 mmol/L (135-145); Total Protein 7.8 g/dL (6.5-8.0)
[2022-11-27 00:23] LABS: Appearance Urine Clear; Color Urine Yellow; Glucose Urine UA Negative (Negative); Leukocyte Esterase Urine Negative (Negative); Nitrite Urine Negative (Negative); PH 5.5 (5.0-9.0); Specific Gravity - Urine 1.015 (1.005-1.025); UMIC TRIGGER UACC YES; Urine Blood Small (1+) (Negative); Urine Ketones Negative (Negative); Urine Protein Negative (Neg-Trace)
[2022-11-27 00:28] LABS: Bacteria Urine None Seen (None Seen); Hyaline Casts Urine 0-2 /LPF (0-2); Squamous Epithelial Cell Urine 0-2 /HPF (0-2); WBC Urine 0-5 /HPF (0-5)
[2022-11-27 00:57] VITALS: BP 146/78; PULSE 73; RESP 18; TEMP 36.9; O2SAT 96
--- NOTE | 2022-11-27 01:46 | ED_ITS ---
HPI - Male Genitourinary General Chief complaint: Urogenital-Male Stated complaint: kidney stone Time Seen by Provider: 11/27/22 00:35 Source: patient, RN notes reviewed and old records reviewed Mode of arrival: ambulatory Limitations: no limitations History of Present Illness HPI Narrative: 67-year-old male presents for evaluation of right flank pain. Patient reports an extensive history of kidney stones. He follows with Dr. Crump Patient reports he started with right mid back to lower back pain 1 and half days ago. The pain started to localize to the right lower quadrant and right groin. His pain is currently a 7/10. He endorses urinary frequency. Denies seeing any blood in the urine His pain is reminiscent of previous kidney stones Related Data Home Medications Medication Instructions Recorded Confirmed metoprolol tartrate 50 mg tablet 50 mg PO BID 02/19/20 01/30/22 simvastatin 20 mg tablet 20 mg PO DAILY 02/19/20 01/30/22 dicyclomine 10 mg capsule 10 mg PO Q6H PRN 07/22/21 01/30/22 Previous Rx's Medication Instructions Recorded allopurinol 100 mg tablet 100 mg PO DAILY 90 days #90 tabs 01/25/21 pyridoxine (vitamin B6) 100 mg 100 mg PO DAILY 90 days #90 tabs 10/19/21 tablet diltiazem HCl 120 mg 120 mg PO DAILY #90 caps 02/27/22 capsule,extended release 24 hr tamsulosin 0.4 mg capsule 0.4 mg PO BEDTIME 90 days #90 caps 08/15/22 oxycodone 5 mg tablet 5 mg PO Q6H PRN severe pain (scale 11/27/22 score 7-10) #8 tabs tamsulosin 0.4 mg capsule 0.4 mg PO DAILY #14 caps 11/27/22 Allergies Allergy/AdvReac Type Severity Reaction Status Date / Time Yeast [YEAST] Allergy Intermediate HIGH Verified 11/26/22 23:09 DOSES-SEES BLACK SPOTS, HOT FLASHES Review of Systems Constitutional: Constitutional: Reports as per HPI, Denies chills, Denies fatigue, Denies fever(s) and Denies headache(s) ENT: Denies headache(s) Cardiovascular: Cardiovascular: Denies chest pain and Denies dyspnea Respiratory: Respiratory: Denies cough and Denies dyspnea Gastrointestinal: Gastrointestinal: Reports abdominal pain, Denies const ipation and Denies vomiting Genitourinary: Genitourinary: Denies hematuria, Denies difficulty urinating and Reports urinary urgency Neurologic: Denies headache(s) and Denies focal weakness Endocrine: Endocrine: Denies fatigue PMFSH Past Medical History Medical History BPH loc w urin obs/LUTS Gallstones HTN (hypertension) Hyperlipidemia Morbid obesity Obstructive sleep apnea (adult) (pediatric) On beta priya at home BOO on CPAP Prostate cancer Radiation cystitis Renal cancer Renal stones Sinus headache SVT (supraventricular tachycardia) Surgical History History of biopsy of bladder History of colonoscopy History of laparoscopic cholecystectomy History of lithotripsy History of partial nephrectomy History of prostatectomy Family History Family History Father No problems noted. Mother No problems noted. 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 Physical Exam Vital Signs: Vital Signs: Last Vital Signs Temp 98.5 F 11/27/22 00:57 Pulse 73 11/27/22 00:57 Resp 18 11/27/22 00:57 BP 146/78 H 11/27/22 00:57 Pulse Ox 96 11/27/22 00:57 O2 Del Method Room Air 11/27/22 00:57 BMI result Body Mass Index 36.2 Const: General: healthy appearing, comfortable, no acute distress, alert and awake Nutritional Appearance: well nourished Orientation/consciousness: p atient oriented x3 HEENT: Head: Yes normocephalic and Yes atraumatic Throat: Yes posterior oropharynx normal Eyes: Eyelids: Yes eyelids normal Conjunctivae: conjunctivae normal Sclerae: sclerae normal Corneas: corneas normal Pupils: Equal, round and reactive pupils present EOM: EOMs intact bilaterally Neck: Neck: Yes full ROM Resp: Effort & Inspection: normal respiratory effort, able to speak in complete sentences and not labored GI: Inspection: No distended Palpation (GI): Soft to palpation, not firm, Tenderness to palpation present (GI) in the RLQ and suprapubicly, no guarding and not rigid Auscultation: normoactive bowel sounds Neuro: General: patient oriented x3 Cranial nerves: Yes Equal, round and reactive pupils present and Yes Bilaterally intact EOM present Cognition (Neuro): normal cognition Medical Decision Making Medical Decision Making [facility] Narrative: Patient along/extensive history of obstructive uropathy. Follows with urology regularly. The patient reports could not tolerate the pain anymore prompting him to come to the ER. He reports that prior to my evaluation he feels as though the ?stone on blocks. ? He reports that he has been able to urinate slightly but still has the urgen cy. He reports his pain is tolerable, will treat the patient with Toradol and Flomax. He will be given a couple of oxycodone increases pain becomes more severe upon discharge. There is no evidence of obstructive uropathy or renal injury. The patient is stable to follow-up as an outpatient Differential Diagnosis Obstructive uropathy Flank pain Dysuria UTI Pyelonephritis Lab Data [facility] Lab Attestation statement: I reviewed the patient's lab results. (No leukocytosis, no significant anemia. Electrolytes within normal limits. BUN just above normal at 20 with a creatinine normal of 1.07.) 11/26/22 23:27 11/26/22 23:27 Labs: Lab Results 11/26/22 11/26/22 11/27/22 Range/Units 23:27 23:27 00:17 WBC 10.5 (4.8-10.8) X10*3/uL RBC 4.96 (4.60-5.80) X10*6/uL Hgb 14.7 (14.0-18.0) g/dl Hct 45.6 (42.0-52.0) % MCV 91.9 (80.0-98.0) fL MCH 29.6 (27.0-33.0) pg MCHC 32.2 (31.0-36.0) g/dl RDW 12.8 (11.0-16.0) % Plt Count 243 (160-400) X10*3/uL MPV 8.5 L (9.4-12.4) fL Immature Gran % (Auto) 0.3 (0.0-0.4) % Neut % (Auto) 70.2 (45-73) % Lymph % (Auto) 19.7 L (20-40) % [place] % (Auto) 8.4 (2-11) % Eos % (Auto) 1.0 (0-4) % Baso % (Auto) 0.4 (0-2) % Lymph # (Auto) 2.1 (1.2-4.9) X10*3/uL [place] # (Auto) 0.9 (0.1-1.2) X10*3/uL Eos # (Auto) 0.1 (0.0-0.4) X10*3/uL Baso # (Auto) 0.0 (0.0-0.2) X10*3/uL Abs Immat Gran (auto) 0.03 (0.00-0.03) X10*3/uL Absolute Neuts (auto) 7.4 (2.0-8.3) x10*3/uL Absolute Nucleated RBC 0.000 (0.0-0.012) X10*3/uL Nucleated RBC % (auto) 0.0 (0.0-0.2) /100WBC Sodium 140 (135-145) mmol/L Potassium 4.1 (3.3-5.1) mmol/L Chloride 103 (96-108) mmol/L Carbon Dioxide 26 (22-29) mmol/L Anion Gap 15 (12-20) BUN 20 H (9-16) mg/dL Creatinine 1.07 (0.5-1.4) mg/dL Estim Creat Clear Calc 82.5 Estimated GFR > 60 Random Glucose 129 H (60-115) mg/dL Calcium 9.6 (8.4-10.2) mg/dL Total Bilirubin 0.4 (0.0-1.0) mg/dL AST 24 (5-37) U/L ALT 28 (0-40) U/L Alkaline Phosphatase 54 (39-117) U/L Total Protein 7.8 (6.5-8.0) g/dL Albumin 4.2 (3.5-5.0) g/dL Urine Color Yellow Urine Appearance Clear Urine pH 5.5 (5.0-9.0) Ur Specific [place] 1.015 (1.005-1.025) Urine Protein Negative (Neg-Trace) mg/dL Urine Glucose (UA) Negative (Negative) mg/dL Urine Ketones Negative (Negative) mg/dL Urine Blood Small (1+) H (Negative) Urine Nitrite Negative (Negative) Ur Leukocyte Esterase Negative (Negative) Urine RBC 11-20 H (0-2) /HPF Urine WBC 0-5 (0-5) /HPF Ur Squamous Epith Cells 0-2 (0-2) /HPF Urine Bacteria None Seen (None Seen) Hyaline Casts 0-2 (0-2) /LPF Independent Interpretation I performed an independent interpretation of an: CT Scan (No acute obstructive uropathy) Discharge Plan Discharge Clinical Impression: Acute right flank pain Patient Disposition: Home, Self-Care Instructions: Kidney Stones (ED) Additional Instructions: Your kidney function is normal, your UA had blood neck but no evidence of infection, your CT scan did not show any evidence of obstructive kidney stones. Take Flomax daily and drink lots of fluids to help attempt to pass any further stones. You may use oxycodone for more severe, breakthrough pain. Follow-up with urology Prescriptions: New tamsulosin 0.4 mg capsule 0.4 mg PO DAILY Qty: 14 0RF oxycodone 5 mg tablet 5 mg PO Q6H PRN (Reason: severe pain (scale score 7-10)) Qty: 8 0RF Rx Instructions: Partial Fill upon patient request. No Action pyridoxine (vitamin B6) 100 mg tablet 100 mg PO DAILY 90 Days Qty: 90 3RF diltiazem HCl 120 mg capsule,extended release 24hr 120 mg PO DAILY Qty: 90 3RF tamsulosin 0.4 mg capsule 0.4 mg PO BEDTIME 90 Days Qty: 90 0RF allopurinol 100 mg tablet 100 mg PO DAILY 90 Days Qty: 90 3RF metoprolol tartrate 50 mg tablet 50 mg PO BID simvastatin 20 mg tablet 20 mg PO DAILY dicyclomine 10 mg capsule 10 mg PO Q6H PRN Referrals: Yehuda Crump MD [Physician] - (current patient, frequent obstructive uropathy)
[2022-11-27] MEDS: Ketorolac Tromethamine 30 MG/ML VIAL IM (02:21)
[2022-11-27] MEDS: Tamsulosin HCL 0.4 MG CAPSULE PO (02:21)
== END 2022-11-27 02:30 | disposition home or self-care (01) ==
PROVIDERS: Emergency Provider Emergency Medicine; PCP Internal Medicine
DX: R10.9 Unspecified abdominal pain (principal); C61 Malignant neoplasm of prostate; E66.9 Obesity, unspecified; Z68.36 Body mass index [BMI] 36.0-36.9, adult; Z87.442 Personal history of urinary calculi; Z79.899 Other long term (current) drug therapy
CPT/HCPCS: 36415; 74176; 80053; 81001; 85025; 96372; 99284; J1885

== ENCOUNTER 2023-01-03 16:43 | Emergency (ER) | payer MEDICARE, OTHER, SELFPAY ==
--- NOTE | ~2023-01-03 | CT_ITS ---
EXAMINATION: CT ABDOMEN AND PELVIS WITHOUT CONTRAST CLINICAL INFORMATION: Abdominal pain. COMPARISON: 11/27/2022. TECHNIQUE: Multidetector volumetric imaging was performed from the superior aspect of the liver through the pubic symphysis. Sagittal and coronal reformatted images were obtained on the technologist's workstation. This CT examination was performed using dose optimization techniques as appropriate, variously including the following: *Automated exposure control. *Adjustment of mA and/or kV according to patient size (this includes techniques or standardized protocols for targeted exams where dose is matched to indication/reason for exam; i.e. extremities or head). *Use of iterative reconstruction technique. DLP: 968 mGy-cm FINDINGS: LUNG BASES: The visualized lung bases are unremarkable. LIVER, GALLBLADDER, AND BILIARY TREE: There are a few subcentimeter hepatic hypodensities too small to characterize but possibly small cysts. There has been a prior cholecystectomy. PANCREAS: Unremarkable. SPLEEN: Numerous splenic calcifications are seen. ADRENAL GLANDS: Unremarkable. KIDNEYS AND URETERS: There are numerous bilateral 1-3 mm calculi. There is scarring in the lower pole of the right kidney. There are stable left renal low to intermediate density measuring up to 1.8 cm mid pole left kidney. There is mild left hydronephrosis and hydroureter extending into the pelvis to the level of a 4.5 x 6 mm left ureterovesicular junction calculus. BLADDER: Unremarkable. GASTROINTESTINAL TRACT: The small and large bowel are unremarkable. The appendix is unremarkable. ABDOMINAL WALL: No significant hernia is appreciated. LYMPH NODES: Normal. VASCULAR: There is mild atherosclerotic plaque of the abdominal aorta. PELVIC VISCERA: Unremarkable. OSSEOUS STRUCTURES: There is mild diffuse lumbar disc and lower lumbar facet degenerative change with bilateral L5 spondylolysis. CT/CT abdomen pelvis wo IV con IMPRESSION: 1. 4.5 x 6 mm left ureterovesicular junction calculus with mild left hydroureter and hydronephrosis. 2. Bilateral nonobstructing renal calculi. Fleischner guidelines were followed.
[2023-01-03 16:52] VITALS: BP 158/62; PULSE 72; RESP 20; TEMP 37.3; O2SAT 98; BMI 36.5
[2023-01-03 17:13] LABS: MANUAL DIFF FLAG NO
[2023-01-03 17:28] LABS: Alanine Aminotransferase 28 U/L (0-40); Albumin Level 4.3 g/dL (3.5-5.0); Alkaline Phosphatase 55 U/L (39-117); Anion Gap 16 (12-20); Aspartate Amino Transferase 26 U/L (5-37); Bilirubin Direct 0.2 mg/dL (0.0-0.5); Bilirubin Total 0.5 mg/dL (0.0-1.0); Blood Urea Nitrogen 16 mg/dL (9-16); Calcium 9.6 mg/dL (8.4-10.2); Carbon Dioxide 22 mmol/L (22-29); Chloride 106 mmol/L (96-108); Creatinine Clr Calc Pharmacy 75.1; Estimated Glomerular Filt Rate > 60; Glucose Random 114 mg/dL (60-115); Lipase 37 U/L (8-78); Potassium 4.6 mmol/L (3.3-5.1); Sodium 139 mmol/L (135-145); Total Protein 7.9 g/dL (6.5-8.0)
[2023-01-03 17:30] LABS: Basophils Percent Auto 0.3 % (0-2); Eosinophils Percent Auto 0.3 % (0-4); Hematocrit 44.7 % (42.0-52.0); Hemoglobin 14.4 g/dl (14.0-18.0); Imm Gran Abs Auto 0.05 X10*3/uL (0.00-0.03); Imm Gran Pct Auto 0.4 % (0.0-0.4); Lymphocytes Absolute Auto 1.6 X10*3/uL (1.2-4.9); Lymphocytes Percent Auto 11.3 % (20-40); Mean Corpuscular HGB Conc 32.2 g/dl (31.0-36.0); Mean Corpuscular Volume 93.1 fL (80.0-98.0); Mean Platelet Volume 9.1 fL (9.4-12.4); Monocytes Absolute Auto 1.3 X10*3/uL (0.1-1.2); Monocytes Percent Auto 9.5 % (2-11); Neutrophils Absolute Auto 10.8 x10*3/uL (2.0-8.3); Neutrophils Percent Auto 78.2 % (45-73); Platelet Count 267 X10*3/uL (160-400); Red Cell Distribution Width 12.6 % (11.0-16.0); White Blood Count 13.8 X10*3/uL (4.8-10.8)
[2023-01-03 17:32] VITALS: BP 156/83; PULSE 72; RESP 16; O2SAT 98
[2023-01-03 17:32] LABS: Appearance Urine Clear; Color Urine Yellow; Glucose Urine UA Negative (Negative); Leukocyte Esterase Urine Negative (Negative); Nitrite Urine Negative (Negative); PH 5.5 (5.0-9.0); Specific Gravity - Urine 1.025 (1.005-1.025); UMIC TRIGGER UACC YES; Urine Blood Negative (Negative); Urine Ketones Negative (Negative); Urine Protein 30 (1+) mg/dL (Neg-Trace)
--- NOTE | 2023-01-03 17:34 | PC.NURSE ---
alert and oriented, respirations even and unlabored. reporting pain in left groin area with back pain that started yesterday. reporting difficulty with urination with small amounts of urination occurring.
[2023-01-03 17:39] LABS: Bacteria Urine None Seen (None Seen); Hyaline Casts Urine 0-2 /LPF (0-2); RBC Urine 0-2 /HPF (0-2); Squamous Epithelial Cell Urine 0-2 /HPF (0-2); WBC Urine 0-5 /HPF (0-5)
[2023-01-03] MEDS: 0.9 % Sodium Chloride 1,000 ML 999 ML IV (17:42)
--- NOTE | 2023-01-03 17:42 | ED.GENADULT ---
HPI - General Adult General Chief complaint: General Medical Stated complaint: Kidney Stones Time Seen by Provider: 01/03/23 17:25 Source: patient Mode of arrival: ambulatory Limitations: no limitations History of Present Illness HPI narrative: 67-year-old male with history of kidney stones presents with left groin pain. The pain started today. He did know yesterday he did have some left-sided abdominal pain. He pain is currently feeling is a 10/10. There is no clear relieving or exacerbating features. The pain does not radiate. Is not associated with nausea vomiting. It is associated with difficulty urinating but he has no frequency, urgency or dysuria. He has no hematuria. He has had no fevers or chills. Patient feels like this might be similar to his previous kidney stone which she reports as calcium oxalate. Related Data Home Medications Medication Instructions Recorded Confirmed metoprolol tartrate 50 mg tablet 50 mg PO BID 02/19/20 01/30/22 simvastatin 20 mg tablet 20 mg PO DAILY 02/19/20 01/30/22 dicyclomine 10 mg capsule 10 mg PO Q6H PRN 07/22/21 01/30/22 Previous Rx's Medication Instructions Recorded allopurinol 100 mg tablet 100 mg PO DAILY 90 days #90 tabs 01/25/21 pyridoxine (vitamin B6) 100 mg 100 mg PO DAILY 90 days #90 tabs 10/19/21 tablet tamsulosin 0.4 mg capsule 0.4 mg PO BEDTIME 90 days #90 caps 08/15/22 oxycodone 5 mg tablet 5 mg PO Q6H PRN severe pain (scale 11/27/22 score 7-10) #8 tabs tamsulosin 0.4 mg capsule 0.4 mg PO DAILY #14 caps 11/27/22 diltiazem HCl 120 mg 120 mg PO DAILY #90 caps 12/25/22 capsule,extended release 24 hr ibuprofen 600 mg tablet 600 mg PO TID PRN fever or pain 01/03/23 #20 tabs ondansetron 4 mg disintegrating 4 mg PO Q8H PRN nausea and 01/03/23 tablet vomiting #10 tabs oxycodone 5 mg tablet 5 mg PO Q8H PRN pain #7 tabs 01/03/23 tamsulosin 0.4 mg capsule 0.4 mg PO DAILY #14 caps 01/03/23 Allergies Allergy/AdvReac Type Severity Reaction Status Date / Time Yeast [YEAST] Allergy Intermediate HIGH Verified 11/26/22 23:09 DOSES-SEES BLACK SPOTS, HOT FLASHES Review of Systems Review of Systems: CONSTITUTIONAL: Denies weight loss, fever and chills. HEENT: Denies changes in vision and hearing. RESPIRATORY: Denies SOB and cough. CV: Denies palpitations no CP. GI: + abdominal pain, - nausea, vomiting and diarrhea. : Denies dysuria and urinary frequency. MSK: Denies myalgia and joint pain. SKIN: Denies rash and pruritus. NEUROLOGICAL: Denies headache and syncope. PSYCHIATRIC: Denies recent changes in mood. Denies anxiety and depression. All other ROS are negative unless in HPI PMFSH Past Medical History Medical History BPH loc w urin obs/LUTS Gallstones HTN (hypertension) Hyperlipidemia Morbid obesity Obstructive sleep apnea (adult) (pediatric) On beta priya at home BOO on CPAP Prostate cancer Radiation cystitis Renal cancer Renal stones Sinus headache SVT (supraventricular tachycardia) Surgical History History of biopsy of bladder History of colonoscopy History of laparoscopic cholecystectomy History of lithotripsy History of partial nephrectomy History of prostatectomy Family History Family History Father No problems noted. Mother No problems noted. 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 Physical Exam ED Vital Signs: Vital Signs - 24 hr 01/03/23 16:52 01/03/23 17:32 01/03/23 18:32 Temperature 99.1 F Pulse Rate 72 72 62 Respiratory Rate 20 16 18 Blood Pressure 158/62 H 156/83 H 140/80 H Pulse Oximetry 98 98 98 Oxygen Delivery Method Room Air Room Air Room Air BMI result Body Mass Index 36.5 GEN: Well developed, no acute distress, alert, oriented HEENT: Normocephalic, atraumatic, normal external ears, nose appears normal, no oropharyngeal edema or exudates Eyes: Normal to appearance Neck: Supple, no lymphadenopathy Respiratory: Talks in complete sentences, no respiratory distress, clear to auscultation bilaterally Cardiovascular: Regular rate and rhythm, no murmurs rubs or gallops Abdomen: Soft, Tenderness noted over the suprapubic and left of suprapubic area, nondistended, no guarding, no rebound Back: No CVA tenderness Extremities: No clubbing cyanosis or edema Neurologic: No focal neurologic deficits, cranial nerves 2-12 intact, strength is 5/5 bilaterally Skin: No rash Course Course Course Narrative: it is 9:00 a.m.. The workup is complete. Patient has a 6 mm UVJ stone. There is no evidence of infection. Pain is controlled at a 5/10. Likely discharge. He does have a urologist. Patient has done well on Flomax in the past. He will start that and we will provide appropriate analgesia for him as well. He will be he knows when to return to the emergency department including high fevers, uncontrolled pain or any other concerning symptoms. Medications Administered Discontinued Medications Generic Name Dose Route Start Last Admin Trade Name Freq PRN Reason Stop Dose Admin Sodium Chloride 1,000 mls @ 999 mls/hr 01/03/23 17:45 01/03/23 18:48 Ns IV 01/03/23 18:45 Infused .Q1H1M MORENA Infusion Ketorolac Tromethamine 15 mg 01/03/23 17:38 01/03/23 17:45 Ketorolac Tromethamine 15 Mg/Ml Vial IVPUSH 01/03/23 17:39 15 mg ONCE ONE Administration Medical Decision Making Medical Decision Making [facility] Narrative: 67-year-old male presents with left-sided abdominal pain. Differential diagnosis includes renal colic, diverticulitis, colitis, proctitis, prostatitis, TI. Plan will be to be obtained CT scan the abdomen pelvis, check urinalysis and routine laboratory analysis well. The meantime will provide the patient with intravenous analgesia and IV fluids. Differential Diagnosis Differential Diagnoses: The differential diagnosis associated with the presentation includes ( See above) Admission/Observation Consideration of admission/observation: Escalation of care including admission/observation considered Lab Data [facility] Lab Attestation statement: I reviewed the patient's lab results. 01/03/23 17:08 01/03/23 17:08 Labs: Lab Results 01/03/23 01/03/23 01/03/23 Range/Units 17:08 17:08 17:08 WBC 13.8 H (4.8-10.8) X10*3/uL RBC 4.80 (4.60-5.80) X10*6/uL Hgb 14.4 (14.0-18.0) g/dl Hct 44.7 (42.0-52.0) % MCV 93.1 (80.0-98.0) fL MCH 30.0 (27.0-33.0) pg MCHC 32.2 (31.0-36.0) g/dl RDW 12.6 (11.0-16.0) % Plt Count 267 (160-400) X10*3/uL MPV 9.1 L (9.4-12.4) fL Immature Gran % (Auto) 0.4 (0.0-0.4) % Neut % (Auto) 78.2 H (45-73) % Lymph % (Auto) 11.3 L (20-40) % [place] % (Auto) 9.5 (2-11) % Eos % (Auto) 0.3 (0-4) % Baso % (Auto) 0.3 (0-2) % Lymph # (Auto) 1.6 (1.2-4.9) X10*3/uL [place] # (Auto) 1.3 H (0.1-1.2) X10*3/uL Eos # (Auto) 0.0 (0.0-0.4) X10*3/uL Baso # (Auto) 0.0 (0.0-0.2) X10*3/uL Abs Immat Gran (auto) 0.05 H (0.00-0.03) X10*3/uL Absolute Neuts (auto) 10.8 H (2.0-8.3) x10*3/uL Absolute Nucleated RBC 0.000 (0.0-0.012) X10*3/uL Nucleated RBC % (auto) 0.0 (0.0-0.2) /100WBC Sodium 139 (135-145) mmol/L Potassium 4.6 (3.3-5.1) mmol/L Chloride 106 (96-108) mmol/L Carbon Dioxide 22 (22-29) mmol/L Anion Gap 16 (12-20) BUN 16 (9-16) mg/dL Creatinine 1.18 (0.5-1.4) mg/dL Estim Creat Clear Calc 75.1 Estimated GFR > 60 Random Glucose 114 (60-115) mg/dL Calcium 9.6 (8.4-10.2) mg/dL Total Bilirubin 0.5 (0.0-1.0) mg/dL Direct Bilirubin 0.2 (0.0-0.5) mg/dL AST 26 (5-37) U/L ALT 28 (0-40) U/L Alkaline Phosphatase 55 (39-117) U/L Total Protein 7.9 (6.5-8.0) g/dL Albumin 4.3 (3.5-5.0) g/dL Lipase 37 (8-78) U/L Urine Color Yellow Urine Appearance Clear Urine pH 5.5 (5.0-9.0) Ur Specific [place] 1.025 (1.005-1.025) Urine Protein 30 (1+) H (Neg-Trace) mg/dL Urine Glucose (UA) Negative (Negative) mg/dL Urine Ketones Negative (Negative) mg/dL Urine Blood Negative (Negative) Urine Nitrite Negative (Negative) Ur Leukocyte Esterase Negative (Negative) Urine RBC 0-2 (0-2) /HPF Urine WBC 0-5 (0-5) /HPF Ur Squamous Epith Cells 0-2 (0-2) /HPF Urine Bacteria None Seen (None Seen) Hyaline Casts 0-2 (0-2) /LPF Independent Interpretation I performed an independent interpretation of an: CT Scan ( left distally ureterolithiasis) Radiology Impression Discussion of test interpretation with radiology: I have reviewed the radiologist's reading. Radiologist Impression: CT/CT abdomen pelvis wo IV con IMPRESSION: 1. 4.5 x 6 mm left ureterovesicular junction calculus with mild left hydroureter and hydronephrosis. ? 2. Bilateral nonobstructing renal calculi.? ? Fleischner guidelines were followed. Dictated By: Milton Wolf Signed By: <Electronically signed by Milton? Luciano in OV> 01/03/232040 Independent Historian Clinical information obtained from an independent historian. History obtained from or confirmed by: Spouse External Record Review External record reviewed: Office record Prescription Management I considered prescription management with: Pain Medication and Antibiotic Discharge Plan Discharge Clinical Impression: Abdominal pain, acute, Nephrolithiasis Patient Disposition: Home, Self-Care Instructions: Kidney Stones (ED) Prescriptions: New ibuprofen 600 mg tablet 600 mg PO TID PRN (Reason: fever or pain) Qty: 20 0RF ondansetron 4 mg tablet,disintegrating 4 mg PO Q8H PRN (Reason: nausea and vomiting) Qty: 10 0RF oxycodone 5 mg tablet 5 mg PO Q8H PRN (Reason: pain) Qty: 7 0RF Rx Instructions: Partial Fill upon patient request. tamsulosin 0.4 mg capsule 0.4 mg PO DAILY Qty: 14 0RF No Action pyridoxine (vitamin B6) 100 mg tablet 100 mg PO DAILY 90 Days Qty: 90 3RF tamsulosin 0.4 mg capsule 0.4 mg PO BEDTIME 90 Days Qty: 90 0RF diltiazem HCl 120 mg capsule,extended release 24hr 120 mg PO DAILY Qty: 90 3RF tamsulosin 0.4 mg capsule 0.4 mg PO DAILY Qty: 14 0RF oxycodone 5 mg tablet 5 mg PO Q6H PRN (Reason: severe pain (scale score 7-10)) Qty: 8 0RF Rx Instructions: Partial Fill upon patient request. allopurinol 100 mg tablet 100 mg PO DAILY 90 Days Qty: 90 3RF metoprolol tartrate 50 mg tablet 50 mg PO BID simvastatin 20 mg tablet 20 mg PO DAILY dicyclomine 10 mg capsule 10 mg PO Q6H PRN Referrals: Yehuda Crump MD [Physician] -
[2023-01-03] MEDS: Ketorolac Tromethamine 15 MG/ML VIAL IVPUSH (17:45)
[2023-01-03 18:32] VITALS: BP 140/80; PULSE 62; RESP 18; O2SAT 98
[2023-01-03 21:20] VITALS: BP 158/75; PULSE 69; RESP 14; TEMP 36.6; O2SAT 98
== END 2023-01-03 21:27 | disposition home or self-care (01) ==
PROVIDERS: Emergency Provider Emergency Medicine; PCP Internal Medicine
DX: N20.0 Calculus of kidney (principal); R10.2 Pelvic and perineal pain; R33.9 Retention of urine, unspecified; Z79.899 Other long term (current) drug therapy
CPT/HCPCS: 36415; 74176; 80048; 80076; 81001; 83690; 85025; 96361; 96374; 99284; 99285; J1885

== ENCOUNTER 2023-01-31 12:46 | Outpatient (AMB) | payer MEDICARE, OTHER, SELFPAY ==
--- NOTE | 2023-01-31 12:51 | A.OFFVIS_ITS ---
Intake Vital Signs 01/31/23 12:52 Height 5 ft 10 in Weight 254 lb BMI 36.4 Intake Visit Reasons: Follow up (missed last 2) Intake Note: Patient is present for Follow Up Urology Med: Tamsulosin, Vitamin B6 Antibiotic Allergy: None Blood Thinner: None [facility]acy: [facility] [place] Allergies Yeast [YEAST] Allergy (Intermediate, Verified 01/31/23 12:51) HIGH DOSES-SEES BLACK SPOTS, HOT FLASHES Medication List - Last Reconciled 01/31/23 by Yehuda Crump MD allopurinol 100 mg PO DAILY 90 days dicyclomine 10 mg PO Q6H PRN diltiazem HCl 120 mg PO DAILY ibuprofen 600 mg PO TID PRN metoprolol tartrate 50 mg PO BID ondansetron 4 mg PO Q8H PRN pyridoxine (vitamin B6) 50 mg PO DAILY 90 days simvastatin 20 mg PO DAILY tamsulosin 0.4 mg PO BEDTIME 90 days HPI HPI Comments History of Present Illness Details Steven is a pleasant male. He is a patient of Dr. Hennessy. He is seen for following urologic conditions - prostate cancer salvage radiation - renal cancer partial nephrectomy - nephrolithiasis Had stone attack in [place] Associated with urinary retention Has passed 4 mm stone at was recently seen Reviewed Imaging Punctate stones bilateral Plan [facility] Prostate Cancer initial management radical prostatectomy, EXP RT for rising PSA 10 years following Diagnosed in early Initial management with prostatectomy Had rising PSA 10 years after diagnosis Managed with radiation Currently has some difficulty with urination secondary to radiation stricture but not enough to warrant dilatation. Investigations - PSA 01/31 < 0.1, 08/01 <0.1, 02/01 <0.1, Renal cancer Partial nephrectomy 2004 Managed with regular imaging Nephrolithiasis Ongoing Stone analysis 07/03 uric acid 20%, calcium oxalate monohydrate 80% Management allopurinol, vitamin B6 Surveillance imaging - 08/01 renal ultrasound - right side sin gle cyst 1 cm, left side multiple cysts up to 2.5 cm, left side stone 6 mm - 10/01 CT punctate stones no evidence of recurrence of renal cancer - 07/05 renal ultrasound bilateral renal cysts up to 2.5 cm, small 4 mm stone right, small 4 mm stone left - 01/03 CT 4.5 x 6 mm left ureterovesicul ar junction calculus with mild left hydroureter and hydronephrosis. Therapeutic plan - allopurinol and vitamin B6 - recommend increased fluid intake PFSH Medical History Morbid obesity On beta priya at home Sinus headache Obstructive sleep apnea (adult) (pediatric) BPH loc w urin obs/LUTS Radiation cystitis Gallstones HTN (hypertension) Renal stones Renal cancer Prostate cancer Hyperlipidemia BOO on CPAP SVT (supraventricular tachycardia) Surgical History History of lithotripsy History of colonoscopy History of biopsy of bladder History of prostatectomy History of partial nephrectomy History of laparoscopic cholecystectomy Family History Father No problems noted. Mother No problems noted. 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 Review of Systems Const Denies chills and Denies fever(s) Card Reports no additional complaints and Denies syncope Resp Denies cough GI Denies abdominal pain and Denies heartburn Reports as per HPI and Denies change in libido Neuro Denies syncope Psych Denies change in libido Endo Denies change in libido Physical Exam Vital Signs: BMI result Body Mass Index 36.4 Const General: cooperative, healthy appearing, comfortable and no acute distress Orientation/consciousness: patient oriented x3 HEENT Face and sinus: Yes normal facial exam Mouth: moist mucous membranes Neck Neck: Yes normal visual inspection, Yes full ROM and Yes trachea midline Chest Chest palpation & inspection: normal inspection of the chest Resp Effort & Inspection: normal respiratory effort, able to speak in complete sentences and no respiratory distress GI Inspection: Yes normal to inspection Back/Spine/Pelvis Cervical Spine: normal cervical lordosis Thoracic/Lumbar Spine: thoracic and lumbar spine normal to inspection Skin General skin exam: no rashes or lesions noted Neuro General: patient oriented x3, gait normal, tone normal and moves all extremities Extrem General: Yes normal to inspection and Yes capillary refill normal Assessment & Plan Assessment & Plan (1) Prostate cancer: Comment: Radical prostatectomy with rising PSA and radiation therapy 2009 Code(s): C61 - Malignant neoplasm of prostate (2) Renal cancer: Code(s): C64.9 - Malignant neoplasm of unspecified kidney, except renal pelvis (3) Nephrolithiasis: Comment: Uric acid stones Code(s): N20.0 - Calculus of kidney Plan [facility] 3 month follow-up Patient Instructions: Imaging studies, laboratory and physical exam results were discussed and reviewed in detail. No major barriers to patient understanding were identified. An opportunity to ask questions regarding the treatment plan was provided. All questions were answered. The patient expressed understanding and agreement with the above treatment plan. The patient is aware they should contact our office by phone for worsening of their current condition or the appearance of new urologic symptoms. Compliance is encouraged with any medications and followup testing that is ordered. It is a privilege to participate in the urologic care of your patient. If you have any questions or concerns regarding treatment for the above conditions, or other urologic issues, please do not hesitate to contact me. The office t elephone contact is [phone]. This note is constructed using voice recognition software. While every effort has been made to ensure accuracy elastic yarn twister helper errors may have been included. Yours sincerely, Dr Yehuda Crump MD, [facility] - Urology Providers of Expert, Compassionate Care for the Genitourinary System Coding Level of Care Code Est Pt Level 4 (08282) Diagnoses Prostate cancer C61 Renal cancer C64.9 Nephrolithiasis N20.0
[2023-01-31 12:52] VITALS: BMI 36.4
== END 2023-01-31 13:22 | disposition home or self-care (01) ==
PROVIDERS: PCP Internal Medicine; Visit Provider Urology
DX: C61 Malignant neoplasm of prostate (principal); C64.9 Malignant neoplasm of unspecified kidney, except renal pelvis; N20.0 Calculus of kidney
CPT/HCPCS: 99214

== ENCOUNTER → 2023-01-31 12:46 | Outpatient (BNVA) | payer MEDICARE, OTHER, SELFPAY | PROVIDERS: PCP Internal Medicine; Visit Provider Urology | DX: C61 Malignant neoplasm of prostate (principal); C64.9 Malignant neoplasm of unspecified kidney, except renal pelvis; N20.0 Calculus of kidney | CPT/HCPCS: 99212 ==

== ENCOUNTER 2023-02-22 14:22 | Outpatient (AMB) | payer MEDICARE, OTHER, SELFPAY ==
--- NOTE | 2023-02-22 14:48 | A.OFFVIS_ITS ---
Intake Vital Signs 02/22/23 14:49 Height 5 ft 10 in Weight 259 lb 4.218 oz BMI 37.2 BP 124/62 Blood Pressure Location Lt brachial Position Sitting Pulse 69 Intake Visit Reasons: 1 YEAR FUP/ HS PT R/S BY US 9.25 Intake Note: 1 year f/u [facility] Laboratory Assistant Required: No Allergies Yeast [YEAST] Allergy (Intermediate, Verified 02/22/23 14:52) HIGH DOSES-SEES BLACK SPOTS, HOT FLASHES Medication List - Last Reconciled 02/22/23 by Ada Davenport, STORE WORKER-C allopurinol 100 mg PO DAILY 90 days dicyclomine 10 mg PO Q6H PRN diltiazem HCl 120 mg PO DAILY ibuprofen 600 mg PO TID PRN metoprolol tartrate 50 mg PO BID ondansetron 4 mg PO Q8H PRN pyridoxine (vitamin B6) 50 mg PO DAILY 90 days simvastatin 20 mg PO DAILY tamsulosin 0.4 mg PO BEDTIME 90 days HPI 1 YEAR FUP/ HS PT R/S BY US 9.25 HPI Details Steven is a 67-year-old male with past medical history of hypertension, hyperlipidemia, obesity, SVT who presents for follow-up. Today he reports that he has not had any episodes of SVT since his last visit 01/30/2022. At times he feels like it is going to start but it does not. When he has had episodes in the past if he throws cold water on his face he will convert back to normal rhythm. No chest discomfort at rest or with activity. No shortness of breath, presyncope, syncope, PND, orthopnea or edema. Taking metoprolol and diltiazem as directed. [facility] Medical History Morbid obesity On beta priya at home Sinus headache Obstructive sleep apnea (adult) (pediatric) BPH loc w urin obs/LUTS Radiation cystitis Gallstones HTN (hypertension) Renal stones Renal cancer Prostate cancer Hyperlipidemia BOO on CPAP SVT (supraventricular tachycardia) Surgical History History of lithotripsy History of colonoscopy History of biopsy of bladder History of prostatectomy History of partial nephrectomy History of laparoscopic cholecystectomy Family History Father No problems noted. Mother No problems noted. 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 Review of Systems Const All systems reviewed & are unremarkable except as noted in HPI and below ENT Denies dizziness Card Denies chest pain, Denies chest pain at rest, Denies chest pain with activity, Denies rapid heart rate, Denies pedal edema, Denies edema, Denies leg edema, Denies lightheadedness, Denies palpitations, Denies dyspnea, Denies dyspnea on exertion and Denies orthopnea Resp Denies cough, Denies dyspnea and Denies dyspnea on exertion GI Denies hematochezia and Denies change in stool character Musc Denies abnormal gait, Denies limited range of motion, Denies muscle cramps, Denies muscle weakness, Denies numbness, Denies radiating pain into limb, Denies stiffness and Denies tingling Neuro Denies abnormal gait, Denies dizziness, Denies numbness and Denies tingling Endo Denies palpitations Physical Exam Vital Signs: Last Vital Signs Pulse 69 02/22/23 14:49 BP 124/62 02/22/23 14:49 BMI result Body Mass Index 37.2 Const General: cooperative, healthy appearing, comfortable and no acute distress Orientation/consciousness: patient oriented x3 Neck Neck: Yes normal visual inspection and Yes no JVD Resp Effort & Inspection: normal respiratory effort Auscultation: clear to auscultation bilaterally, no crackles, no rales, no rhonchi and no wheezes Cardio Jugular venous distension: no JVD Rate: regular rate Rhythm: regular rhythm Heart sounds: S1 normal heart sound present, S2 normal heart sound present, no murmurs and no rubs Neuro General: patient oriented x3 Extrem General: Yes normal to inspection and No no pedal edema Psych Appearance: grossly normal Mental Status: mental status grossly normal Speech and movement: Normal speech and movement present Office Procedures EKG Details: Today, read by me, normal sinus rhythm, rate 69, QTC 447 millisecond [id number], Complete Assessment & Plan Assessment & Plan (1) SVT (supraventricular tachycardia): Comment: Foll'd by Dr. Mejias Code(s): I47.1 - Supraventricular tachycardia Plan: History of SVT. No episodes in over a year. He feels like it wants to start but does not. He has been taking his diltiazem and metoprolol as directed. In the past he was able to control episodes by laying down and have someone throw cool water on his face. He would then convert to normal rhythm. He has not had to do this recently. He knows to seek emergency medical care if he has sustained rapid palpitations that are not relieved by his usual methods. Continue meds without change. Continue to avoid caffeinated beverages. Continue activity as tolerated. Cardiology follow-up in 1 year, sooner if needed (2) BOO on CPAP: Code(s): G47.33 - Obstructive sleep apnea (adult) (pediatric); Z99.89 - Dependence on other enabling machines and devices Plan: Compliant with CPAP Coding Level of Care Code Est Pt Level 3 (91143) Diagnoses SVT (supraventricular tachycardia) I47.1 BOO on CPAP G47.33; Z99.89 CPT Codes EKG - CPT: 26000-[id number], Complete ([id number]) Time Spent (min) 22
[2023-02-22 14:49] VITALS: BP 124/62; PULSE 69; BMI 37.2
== END 2023-02-22 15:25 | disposition home or self-care (01) ==
PROVIDERS: PCP Internal Medicine; Visit Provider Nurse Practitioner Family
DX: I47.1 Supraventricular tachycardia (principal); G47.33 Obstructive sleep apnea (adult) (pediatric); Z99.89 Dependence on other enabling machines and devices
CPT/HCPCS: 93010; 99213

== ENCOUNTER → 2023-02-22 14:22 | Outpatient (BNVA) | payer MEDICARE, OTHER, SELFPAY | PROVIDERS: PCP Internal Medicine; Visit Provider Nurse Practitioner Family | DX: I47.10 Supraventricular tachycardia, unspecified (principal) | CPT/HCPCS: 93005 ==

== ENCOUNTER 2023-04-30 15:57 | Outpatient (REF) | payer MEDICARE, OTHER, SELFPAY ==
--- NOTE | ~2023-04-30 | XR_ITS ---
EXAMINATION: XR WRIST, LEFT XR HAND, LEFT CLINICAL INFORMATION: Trauma COMPARISON: None available. TECHNIQUE: PA, lateral, and oblique views of the left wrist and PA, lateral, and oblique views of the left hand FINDINGS: LEFT WRIST: The bones and soft tissues are normal. No fracture. Alignment is anatomic. Joint spaces are maintained. No erosions or soft tissue calcifications. LEFT HAND: The bones and soft tissues are normal. No fracture. Question old trauma to the middle phalanx third finger. Alignment is anatomic. Joint spaces are maintained. Mild arthritis at the first FCI joint with small osteophytes. No erosions or soft tissue calcifications. XR/XR hand wrist LT IMPRESSION: No acute fracture or dislocation
== END 2023-04-30 15:58 | disposition home or self-care (01) ==
LOC: HO.XRAY 15:57
PROVIDERS: PCP Internal Medicine; Visit Provider Internal Medicine
DX: S69.92XD Unspecified injury of left wrist, hand and finger(s), subsequent encounter (principal)
CPT/HCPCS: 73110; 73130

== ENCOUNTER 2023-05-01 08:46 | Outpatient (AMB) | payer MEDICARE, OTHER, SELFPAY ==
--- NOTE | 2023-05-01 08:47 | A.OFFVIS_ITS ---
Intake Intake Visit Reasons: 3m/litholink(set) Intake Note: Patient is Present for Telephone Follow Up Urology Med: Vitamin B6, Tamsulosin Antibiotic Allergy: None Blood Thinner: None Allergies Yeast [YEAST] Allergy (Intermediate, Verified 05/01/23 08:48) HIGH DOSES-SEES BLACK SPOTS, HOT FLASHES HPI HPI Comments History of Present Illness Details Steven is a pleasant male. He is a patient of Dr. Hennessy. He is seen for following urologic conditions - prostate cancer salvage radiation - renal cancer partial nephrectomy - nephrolithiasis Telemedicine Evaluation 15 min Consultation Project Manager Megan Video attempted Litholink not performed since excess collection Has passed stone recently small Will plan follow-up Litholink with imaging in 6 months Had stone attack in [place] Associated with urinary retention Has passed 4 mm stone at was recently seen Reviewed Imaging Punctate stones bilateral Plan Litholink Prostate Cancer initial management radical prostatectomy, EXP RT for rising PSA 10 years following Diagnosed in early Initial management with prostatectomy Had rising PSA 10 years after diagnosis Managed with radiation Currently has some difficulty with urination secondary to radiation stricture but not enough to warrant dilatation. Investigations - PSA 01/31 < 0.1, 08/01 <0.1, 02/01 <0.1, Renal cancer Partial nephrectomy 2004 Managed with regular imaging Nephrolithiasis Ongoing Stone analysis 07/03 uric acid 20%, calcium oxalate monohydrate 80% Management allopurinol, vitamin B6 Surveillance imaging - 08/01 renal ultrasound - right side sin gle cyst 1 cm, left side multiple cysts up to 2.5 cm, left side stone 6 mm - 10/01 CT punctate stones no evidence of recurrence of renal cancer - 07/05 renal ultrasound bilateral renal cysts up to 2.5 cm, small 4 mm stone right, small 4 mm stone left - 01/03 CT 4.5 x 6 mm left ureterovesicul ar junction calculus with mild left hydroureter and hydronephrosis. Therapeutic plan - allopurinol and vitamin B6 - recommend increased fluid intake PFSH Medical History Morbid obesity On beta priya at home Sinus headache Obstructive sleep apnea (adult) (pediatric) BPH loc w urin obs/LUTS Radiation cystitis Gallstones HTN (hypertension) Renal stones Renal cancer Prostate cancer Hyperlipidemia BOO on CPAP SVT (supraventricular tachycardia) Surgical History History of lithotripsy History of colonoscopy History of biopsy of bladder History of prostatectomy History of partial nephrectomy History of laparoscopic cholecystectomy Family History Father No problems noted. Mother No problems noted. 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 Review of Systems Const All systems reviewed & are unremarkable except as noted in HPI and below Reports no additional complaints Resp Reports no additional complaints GI Reports no additional complaints Reports as per HPI Musc Reports no additional complaints Physical Exam Telemedicine evaluation Appropriate responses Regular breathing rate and rhythm HEENT Head: Yes normal to inspection Ears: hearing grossly normal bilaterally Eyes General: appearance normal, both eyes and all related structures Neck Neck: Yes normal visual inspection Chest Chest palpation & inspection: normal inspection of the chest Resp Effort & Inspection: normal respiratory effort and able to speak in complete sentences Assessment & Plan Assessment & Plan (1) Prostate cancer: Comment: Radical prostatectomy with rising PSA and radiation therapy 2009 Code(s): C61 - Malignant neoplasm of prostate (2) Nephrolithiasis: Comment: Uric acid stones Code(s): N20.0 - Calculus of kidney Plan Six month follow-up imaging Orders: Orders US renal BI 6 Months N20.0 - Calculus of kidney Medications: Refilled allopurinol 100 mg PO DAILY 90 days 90 tabs 3RF Patient Instructions: Imaging studies, laboratory and physical exam results were discussed and reviewed in detail. No major barriers to patient understanding were identified. An opportunity to ask questions regarding the treatment plan was provided. All questions were answered. The patient expressed understanding and agreement with the above treatment plan. The patient is aware they should contact our office by phone for worsening of their current condition or the appearance of new urologic symptoms. Compliance is encouraged with any medications and followup testing that is ordered. It is a privilege to participate in the urologic care of your patient. If you have any questions or concerns regarding treatment for the above conditions, or other urologic issues, please do not hesitate to contact me. The office telephone contact is [phone]. This note is constructed using voice recognition software. While every effort has been made to ensure accuracy account maintenance representative errors may have been included. Yours sincerely, Dr Yehuda Crump MD, [facility] - Urology Providers of Expert, Compassionate Care for the Genitourinary System Telehealth Telehealth Location of provider rendering services: practice address Location of patient: address on file Patient Identification confirmed using: Name, : Yes Telehealth method: video Patient verbally consented to treatment: Yes Patient verbally consented to billing insurance company: Yes Patient informed of any privacy concerns related to visit: Yes Coding Level of Care Code Tele Est Pt Level 3 (36989) Diagnoses Prostate cancer C61 Nephrolithiasis N20.0
--- OUTSIDE RECORDS SUMMARY | 2023-05-01 08:47 | XMS_ITS | Patient Health Record ---
Author Name Unknown Organization [facility] Address [address] [place] [id number] Care Team Providers Care Experience Design Director Name Role Phone Ethan Hennessy MD Primary Care Provider Milton Astudillo Unavailable [phone] ALLERGIES Allergen (clinical drug ingredient) Drug/Non Drug Allergy documented on EMR Reaction Allergy Type Onset Date Status yeast in high concentrations (uncoded) Unknown Allergy Active certain enviromental/pollen and trees (uncoded) Unknown Allergy Active REASON FOR REFERRAL No Information MEDICATIONS Medication SIG (Take, Route, Frequency, Duration) Notes Start Date End Date Status Cholestyramine 4 GM/DOSE 1 scoop Orally once or Twice a day for loose stools for 90 Not-Taking Allopurinol 100 MG Oral for 90 Active Tamsulosin HCl 0.4 MG Oral for 90 Active dilTIAZem HCl ER Coated Beads 120 MG Oral for 90 Active Vitamin B-6 100 MG Oral for 90 Active Ibuprofen 200 MG as directed as directed as directed Active Metoprolol Succinate 50 MG 1 capsule Ora lly twice a day Active Simvastatin 20 MG 1 tablet in the evening Orally Once a day Active Dicyclomine HCl 10 MG TAKE 1-2 CAPSULE(S ) BY MOUTH 30-60 MINUTES BEFORE EACH MEAL for 90 Active IMMUNIZATIONS Vaccine Route Administration Date Status Comme nts Influenza Unknown 01/12/2018 Administered Influenza Unknown 01/12/2021 Administered SOCIAL HISTORY Sex Assigned At : Social History Observation Description Sex Assigned At Unknown PROBLEMS Problem Type ICD Code Onset Dates Problem Status W/U Status Risk SNOMED Code Notes Problem Preprocedural examination (Z01.818) Active confirmed 58517792 Problem Encounter for screening for malignant neoplasm of colon (Z12.11) Active confirmed 859736070 Problem Encounter for screening for malignant neoplasm of rectum (Z12.12) Active confirmed Screening for malignant neoplasm of rectum (411357005) Problem Change in bowel movement (R19.8) Active confirmed 446547694 Problem Abdominal bloating (R14.0) Active confirmed 630745452 Problem Abdominal gas pain (R14.1) Active confirmed 86540598 Problem Hx of adenomatous colonic polyps (Z86.010) Active confirmed 546139984 Problem Other irritable bowel syndrome (K58.8) Active confirmed 20995420 PLAN OF TREATMENT Future Test Test Name Order Date COLONOSCOPY 09/29/2015 COLONOSCOPY 05/03/2021 Insurance Providers Payer Name Payer Address Payer Phone Subscriber Number Group Number Insured Name Patient Relationship to Insured Coverage Start Date Coverage End Date MEDICARE OF [place] [address] [place] [address] [id number] BLANCHE DOWD Self - patient is the insured [facility] [address] [place] [phone] [id number] BLANCHE DOWD Self - patient is the insured MEDICAL (GENERAL) HISTORY Medical History History ICD Code Colonosocpy 05-22-2005--hyperplastic polyp Tachycardia --on metoprolol Denies MO,DM,CVA,Lung disease,renal dise ase Right Renal cell cancer---as below Prostate cancer--as below Hyperlipidemia Sleep apnea--uses CPAP Kidney stones-[facility] Colonoscopy 12/2015---1 small tubular adenoma removed, XRT telangiectasias, diverticulosis, internal hemorrhoids allergies- gets injections [facility], had XR T in 2014 Lap [facility] 09/2015-Dr. Estrella Right renal cancer--partial nephrectomy in 2000 at [facility]
== END 2023-05-01 09:30 | disposition home or self-care (01) ==
LOC: HO.HUSH 08:46
PROVIDERS: PCP Internal Medicine; Visit Provider Urology
DX: C61 Malignant neoplasm of prostate (principal); N20.0 Calculus of kidney
CPT/HCPCS: 99213

== ENCOUNTER → 2023-05-01 08:46 | Outpatient (BNVA) | payer MEDICARE, OTHER, SELFPAY | PROVIDERS: PCP Internal Medicine; Visit Provider Urology ==

== ENCOUNTER 2023-05-30 10:02 | Emergency (ER) | payer MEDICARE, OTHER, SELFPAY ==
--- NOTE | ~2023-05-30 | XR_ITS ---
Examination: Right knee and chest with right ribs. Clinical indications: Fall. COMPARISON: Chest x-ray 07/19/2019 TECHNIQUE:: Right knee 4 views. Chest and right RIBS 4 views. FINDINGS: Right knee: There is mild reduction in medial and patellofemoral compartment joint space with small superior patellar enthesophyte. There is no loose bodies, fracture, dislocation or joint effusion seen. No lytic or sclerotic process. CHEST: The lungs are somewhat expanded and clear of acute process. Heart size and pulmonary vascularity is normal. No gross bony abnormality seen. Right RIBS: Multiple views of right ribs reveal no visible right rib fracture or bony abnormality. XR/XR ribs RT min 3V w CXR1V IMPRESSION: Mild degenerative changes medial and patellofemoral compartments without any visible acute fracture or dislocation. Unremarkable chest exam. No visible right rib fracture seen
--- NOTE | ~2023-05-30 | XR_ITS ---
Examination: Right knee and chest with right ribs. Clinical indications: Fall. COMPARISON: Chest x-ray 07/19/2019 TECHNIQUE:: Right knee 4 views. Chest and right RIBS 4 views. FINDINGS: Right knee: There is mild reduction in medial and patellofemoral compartment joint space with small superior patellar enthesophyte. There is no loose bodies, fracture, dislocation or joint effusion seen. No lytic or sclerotic process. CHEST: The lungs are somewhat expanded and clear of acute process. Heart size and pulmonary vascularity is normal. No gross bony abnormality seen. Right RIBS: Multiple views of right ribs reveal no visible right rib fracture or bony abnormality. XR/XR knee RT 3V IMPRESSION: Mild degenerative changes medial and patellofemoral compartments without any visible acute fracture or dislocation. Unremarkable chest exam. No visible right rib fracture seen
[2023-05-30 10:14] VITALS: BP 130/42; PULSE 63; RESP 20; TEMP 36.4; O2SAT 98; BMI 36.7
--- NOTE | 2023-05-30 10:53 | ED_ITS ---
HPI - General Adult General Chief complaint: Fall Stated complaint: ? R Rib Fracture S/P Fall 05/30/23 Time Seen by Provider: 05/30/23 10:53 Source: patient and family (patient's ) Mode of arrival: ambulatory Limitations: no limitations History of Present Illness HPI narrative: 67 year-old assigned male at with history of prostate cancer and renal cancer presents to emergency department with right rib pain and right knee pain. He states that he fell this morning on 05/30/2023 when he fell forward off a curb. He reports that he struck his rib and knee and now has general body aches. He states that coughing and deep breaths worsen his rib pain, and that walking worsens his knee pain. He reports taking two Tylenol for his pain at 10:30am on 05/30/2023. He denies hitting his head or any loss of consciousness. He denies changes in urination. He denies tobacco smoking and recreational drug use. The patient denies fever, chills, night sweats, lightheadedness, dizziness, changes in vision, double vision, blurry vision, loss of vision, palpitations, shortness of breath, trouble breathing, abdominal pain, nausea, vomiting, diarrhea, melena and hematochezia, changes in bowel movements, and gait disturbances. Onset (ago): hour(s) (3 hours) Location: chest (right lower ribs) and lower extremity (right knee) Radiation: non-radiation Pain Consistency: constant Relieving factors: rest Exacerbating factors: movement and other (coughing worsens ) Associated symptoms: denies other symptoms Treatments prior to arrival: other (Tylenol) Related Data Home Medications Medication Instructions Recorded Confirmed metoprolol tartrate 50 mg tablet 50 mg PO BID 02/19/20 02/22/23 simvastatin 20 mg tablet 20 mg PO DAILY 02/19/20 02/22/23 dicyclomine 10 mg capsule 10 mg PO Q6H PRN 07/22/21 02/22/23 Previous Rx's Medication Instructions Recorded diltiazem HCl 120 mg 120 mg PO DAILY #90 caps 12/25/22 capsule,extended release 24 hr ibuprofen 600 mg tablet 600 mg PO TID PRN fever or pain 01/03/23 #20 tabs ondansetron 4 mg disintegrating 4 mg PO Q8H PRN nausea and 01/03/23 tablet vomiting #10 tabs pyridoxine (vitamin B6) 50 mg 50 mg PO DAILY 90 days #90 tabs 01/31/23 tablet ketorolac 10 mg tablet 10 mg PO Q6H PRN pain 3 days #12 02/25/23 tabs prednisone 20 mg tablet 20 mg PO DAILY 3 days #3 tabs 02/25/23 tamsulosin 0.4 mg capsule 0.4 mg PO BEDTIME 90 days #90 caps 04/12/23 allopurinol 100 mg tablet 100 mg PO DAILY 90 days #90 tabs 05/01/23 Allergies Allergy/AdvReac Type Severity Reaction Status Date / Time Yeast [YEAST] Allergy Intermediate HIGH Verified 05/30/23 10:17 DOSES-SEES BLACK SPOTS, HOT FLASHES Review of Systems Constitutional: Constitutional: Reports no additional constitutional complaints, Denies chills, Denies fever(s) and Denies night sweats Eyes: Eyes: Reports no additional eye complaints, Denies blurry vision, Denies change in vision, Denies diplopia, Denies eye discharge, Denies loss of vision and Denies eye pain ENT: Denies dizziness Cardiovascular: Cardiovascular: Reports no additional cardiovascular complaints, Denies lightheadedness, Denies Loss of Consciousness and Denies dyspnea Respiratory: Respiratory: Reports no additional respiratory complaints and Denies dyspnea Gastrointestinal: Gastrointestinal: Reports no additional gastrointestinal complaints, Denies abdominal pain, Denies melena, Denies hematochezia, Denies change in bowel habits and Denies change in stool character Genitourinary: Genitourinary: Reports no additional male genitourinary complaints, Denies hematuria, Denies oliguria, Denies difficulty urinating, Denies dysuria, Denies urinary frequency, Denies urinary hesitancy, Denies urinary incontinence and Denies urinary urgency Musculoskeletal: Musculoskeletal: Reports no additional musculoskeletal c omplaints, Denies numbness and Denies tingling Comments: right rib pain and right knee pain Neurologic: Denies dizziness, Denies loss of vision, Denies numbness and Denies tingling Psychiatric: Psychiatric: Reports no additional psychiatric complaints Endocrine: Endocrine: Reports no additional endocrine complaints Hematologic/Lymphatic: Hematologic/Lymphatic: Reports no additional hematologic/lymphatic complaints Allergic/Immunologic: Allergic/Immunologic: Reports no additional allergic/immunologic complaints PMFSH Past Medical History Attestation statement: The following information was validated with the patient. (all information validated with the patient's ) Source: old records reviewed, obtained from family (patient's provided additional history and confirmed the history provided.) and nursing notes reviewed Onset Date is defined in the Problem List Problems that require an onset date and time if occurred within 24 hrs of arr ival to the ED Aortic Dissection and Rupture; Neurologic impairment; Cardiopulmonary Arrest; Endotracheal Intubation; Insertion or Replacement of Mechanical Circulatory Assi st Device Medical History Morbid obesity On beta priya at home Sinus headache Obstructive sleep apnea (adult) (pediatric) BPH loc w urin obs/LUTS Radiation cystitis Gallstones HTN (hypertension) Renal stones Renal cancer Prostate cancer Hyperlipidemia BOO on CPAP SVT (supraventricular tachycardia) Surgical History History of lithotripsy History of colonoscopy History of biopsy of bladder History of prostatectomy History of partial nephrectomy History of laparoscopic cholecystectomy Family History Family History Father No problems noted. Mother No problems noted. 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 Physical Exam ED Vital Signs: Vital Signs - 24 hr 05/30/23 10:14 Temperature 97.5 F Pulse Rate 63 Respiratory Rate 20 Blood Pressure 130/42 L Pulse Oximetry 98 Oxygen Delivery Method Room Air BMI result Body Mass Index 36.7 Const General: cooperative, no acute distress, alert and awake Nutritional Appearance: well nourished Orientation/consciousness: patient oriented x3 Limitations: no limitations HENMT Head: Yes normal to inspection and Yes atraumatic Ears: hearing grossly normal bilaterally and external ears normal General nose exam: Normal external nose present, no nasal discharge noted and no epistaxis Face and sinus: Yes normal facial exam, No abrasion and No laceration Mouth: Normal oral and palatal mucosa present, no drooling and no muffled voice Eyes General: appearance normal, both eyes and all related structures Periorbital: periorbital findings normal Eyelids: Yes eyelids normal Conjunctivae: conjunctivae normal Pupils: Equal, round and reactive pupils present EOM: EOMs intact bilaterally Neck Neck: Yes normal visual inspection, Yes full ROM and Yes no lymphadenopathy Chest Other: right rib splitting machine tender to palpation Chest palpation & inspection: normal inspection of the chest Resp Effort & Inspection: normal respiratory effort and able to speak in complete sentences Auscultation: clear to auscultation bilaterally GI Inspection: Yes normal to inspection Neuro General: patient oriented x3 and moves all extremities Cranial nerves: Yes Equal, round and reactive pupils present Cognition (Neuro): normal cognition Motor exam (neuro): 5/5 motor strength present throughout Sensory Exam: Normal double simultaneous stimulation for sensation Coordination: [id number] test normal Extrem Other: minimal swelling to the right knee General: Yes full ROM and Yes capillary refill normal Psych Appearance: grossly normal Mental Status: mental status grossly normal Affect: normal affect Attitude: cooperative Thought process: Normal thought process present Thought content: Normal thought content present Insight: Good insight present (Psych) Medical Decision Making Medical Decision Making MDM Narrative: Patient is a 67 year old assigned male at with a history of prostate and renal cancers, presenting to the emergency department today with right knee and rib pain after a trip and fall. Patient's physical exam was as noted in the physical exam portion of this note. Patient's right knee and right rib x-rays showed no acute process. I explained my physical exam findings as well as all test results to the patient and the patient's . I answered all questions asked by the patient and the patient's . I stressed the importance of the patient taking his medication as prescribed. I stressed the importance of the patient following up with his primary care provider. I stressed the importance of the patient returning to the emergency department immediately if his symptoms were to worsen or if he were to develop any dizziness, shortness of breath, difficulty breathing, chest pain, blurry vision, loss of vision, nausea, vomiting, abdominal pain, fever, chills, back pain, or any other complaints. Patient and the patient's verbalized agreement and understanding with this treatment plan and discharge. Differential Diagnosis Differential Diagnoses: The differential diagnosis associated with the presentation includes Rib contusion Rib fracture Rib pain Knee pain Knee fracture Knee strain Fall Admission/Observation Consideration of admission/observation: Escalation of care including admission/observation considered Patient would have been admitted to the hospital had his work up had any findings where hospital admission was appropriate and his clinical presentation warranted hospital admission. Independent Interpretation I performed an independent interpretation of an: Plain X-Ray Interpretation: My interpretation is in agreement with the radiologist's impression of these im aging studies. Examination: Right knee and chest with right ribs. Clinical indications: Fall. COMPARISON: Chest x-ray 07/19/2019 TECHNIQUE:: Right knee 4 views. Chest and right RIBS 4 views. FINDINGS: Right knee: There is mild reduction in medial and patellofemoral compartment joint space with small superior patellar enthesophyte. There is no loose bodies, fracture, dislocation or joint effusion seen. No lytic or sclerotic process. CHEST: The lungs are somewhat expanded and clear of acute process. Heart size and pulmonary vascularity is normal. No gross bony abnormality seen. Right RIBS: Multiple views of right ribs reveal no visible right rib fracture or bony abnormality. XR/XR ribs RT min 3V w CXR1V IMPRESSION: Mild degenerative changes medial and patellofemoral compartments without any visible acute fracture or dislocation. Unremarkable chest exam. No visible right rib fracture seen Dictated By: Chemo Israel MD Signed By: Electronically signed by Chemo Israel MD 05/30/23 [id number] Radiology Impression Discussion of test interpretation with radiology: I have reviewed the radiologist's reading. Independent Historian Clinical information obtained from an independent historian. History obtained from or confirmed by: Spouse (patient's provided additional history and confirmed the history provided by the patient.) Discharge Plan Discharge Clinical Impression: Rib injury, Acute knee pain, Fall Patient Disposition: Home, Self-Care Instructions: Knee Pain (ED), Fall Prevention (ED) Additional Instructions: Follow up with your primary care provider. Return to the emergency department immediately if your symptoms worsen or if you develop any dizziness, shortness of breath, difficulty breathing, chest pain, blurry vision, loss of vision, nausea, vomiting, abdominal pain, fever, chills, back pain, or any other complaints. Prescriptions: No Action diltiazem HCl 120 mg capsule,extended release 24hr 120 mg PO DAILY Qty: 90 3RF pyridoxine (vitamin B6) 50 mg tablet 50 mg PO DAILY 90 Days Qty: 90 3RF ketorolac 10 mg tablet 10 mg PO Q6H PRN (Reason: pain) 3 Days Qty: 12 0RF prednisone 20 mg tablet 20 mg PO DAILY 3 Days Qty: 3 0RF tamsulosin 0.4 mg capsule 0.4 mg PO BEDTIME 90 Days Qty: 90 1RF ibuprofen 600 mg tablet 600 mg PO TID PRN (Reason: fever or pain) Qty: 20 0RF ondansetron 4 mg tablet,disintegrating 4 mg PO Q8H PRN (Reason: nausea and vomiting) Qty: 10 0RF metoprolol tartrate 50 mg tablet 50 mg PO BID simvastatin 20 mg tablet 20 mg PO DAILY dicyclomine 10 mg capsule 10 mg PO Q6H PRN allopurinol 100 mg tablet 100 mg PO DAILY 90 Days Qty: 90 3RF Referrals: Ethan Hennessy MD [Primary Care Provider] - Interventions: ED Discharge Assessment Last Done: 05/30/23 12:20 Print Language: Persian
--- OUTSIDE RECORDS SUMMARY | 2023-05-30 11:34 | XMS_ITS | Patient Health Record ---
Author Name Unknown Organization [facility] Address [address] [place] [id number] Care Team Providers Care District Branch Manager Name Role Phone Ethan Hennessy MD Primary Care Provider Milton Astudillo Unavailable [phone] ALLERGIES Allergen (clinical drug ingredient) Drug/Non Drug [...] Notes Problem Preprocedural examination (Z01.818) Active confirmed 98810569 Problem Encounter for screening for malignant neoplasm of colon (Z12.11) Active confirmed [id number] Problem Encounter for screening for malignant neoplasm of rectum (Z12.12) Active confirmed Screening for malignant neoplasm of rectum (156616862) Problem Change in bowel movement (R19.8) Active confirmed 428075022 Problem Abdominal bloating (R14.0) Active confirmed 453769766 Problem Abdominal gas pain (R14.1) Active confirmed 89854700 Problem Hx of adenomatous colonic polyps (Z86.010) Active confirmed 904632672 Problem Other irritable bowel syndrome (K58.8) Active confirmed 64415001 PLAN OF TREATMENT Future Test Test Name Order Date COLONOSCOPY 09/29/2015 COLONOSCOPY 05/03/2021 Insurance Providers Payer Name Payer Address Payer Phone Subscriber Number Group Number Insured Name Patient Relationship to Insured Coverage Start Date Coverage End Date MEDICARE OF [place] [address] [place] [address] [id number] BLANCHE DOWD Self - patient is the insured [facility] [address] [place] [phone] [id number] BLANCHE DOWD Self - patient is the insured MEDICAL (GENERAL) HISTORY Medical History History ICD Code Colonosocpy 05-22-2005--hyperplastic polyp Tachycardia --on metoprolol Denies HI,DM,CVA,Lung disease,renal dise ase Right Renal cell cancer---as below Prostate cancer--as below Hyperlipidemia Sleep apnea--uses CPAP Kidney stones-ES[facility] Colonoscopy 12/2015---1 small tubular adenoma removed, XRT telangiectasias, diverticulosis, internal hemorrhoids allergies- gets injections Surgical History Surgery Date(Month/Year) [facility]--2007, had XR T in 2014 Lap [facility] 09/2015-Dr. Estrella Right renal cancer--partial nephrectomy in 2000 at [facility]
== END 2023-05-30 12:21 | disposition home or self-care (01) ==
PROVIDERS: Emergency Provider Emergency Medicine; PCP Internal Medicine
DX: S29.9XXA Unspecified injury of thorax, initial encounter (principal); W10.1XXA Fall (on)(from) sidewalk curb, initial encounter; M25.561 Pain in right knee; Y93.01 Activity, walking, marching and hiking; Y92.480 Sidewalk as the place of occurrence of the external cause; Y99.9 Unspecified external cause status
CPT/HCPCS: 71101; 73562; 99282; 99283

== ENCOUNTER 2023-06-06 09:44 | Outpatient (AMB) | payer MEDICARE, OTHER, SELFPAY ==
[2023-06-06 09:55] VITALS: BMI 36.7
--- NOTE | 2023-06-06 09:55 | A.OFFVIS_ITS ---
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 Patient reports that he had a fall mid April injuring his wrist at the ulnar aspect of wrist and SF. States iced and karishma taped his SF and RF. He has no improvement and followed up with his PCP who ordered xrays. Currently his pain has improved however he continues to have tenderness in his IF and CMC. Finds some support with hand sleeve. 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 He reports he iced and karishma taped his small and ring finger after the injury and was seen by his PCP who ordered x-rays and referred to our office. He currently states he has improvement in his pain however he continues to have tenderness in his index finger and CMC. He finds mild relief with hand sleeve. 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 [facility] Medical History Morbid obesity On beta priya at home Sinus headache Obstructive sleep apnea (adult) (pediatric) BPH loc w urin obs/LUTS Radiation cystitis Gallstones HTN (hypertension) Renal stones Renal cancer Prostate cancer Hyperlipidemia BOO on CPAP SVT (supraventricular tachycardia) Surgical History History of lithotripsy History of colonoscopy History of biopsy of bladder History of prostatectomy History of partial nephrectomy History of laparoscopic cholecystectomy Family History Father No problems noted. Mother No problems noted. 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 Review of Systems Const All systems reviewed & are unremarkable except as noted in HPI and below Physical Exam Vital Signs: BMI result Body Mass Index 36.7 Const General: cooperative, healthy appearing, comfortable, no acute distress, well developed and alert Orientation/consciousness: patient oriented x3 HEENT Head: Yes normal to inspection, Yes normocephalic and Yes atraumatic Eyes General: appearance normal, both eyes and all related structures Resp Effort & Inspection: normal respiratory effort and able to speak in complete sentences Cardio Rate: regular rate Peripheral pulses: Peripheral pulses 2+ throughout GI Palpation (GI): Soft to palpation Skin Lesions: no lesions Rashes: no rashes Neuro General: patient oriented x3 Extrem Other: Left thumb: Pain at the base of the thumb along the CMC joint. Pain with CMC grind, they are able to make a full fist and fully extend. NVI. Assessment & Plan Assessment & Plan (1) Left wrist sprain: Code(s): S63.502A - Unspecified sprain of left wrist, initial encounter Qualifiers: Encounter type: initial encounter Qualified Code(s): S63.502A - Unspecified sprain of left wrist, initial encounter (2) Arthritis of carpometacarpal (CMC) joint of left thumb: Code(s): M18.12 - Unilateral primary osteoarthritis of first carpometacarpal joint, left hand Plan We discussed options which include OT, NSAIDs and injections. The patient will defer on the injection today and proceed with OT and NSAIDs. He was placed in a comfort cool wrist brace which he will wear with activities. He can remove the brace for sleeping, hygiene and exercises. If symptoms persist or worsens, patient will contact the office for further options; potentially an MRI arthrogram of the left wrist. Orders: Orders XR hand LT min 3V Today M79.642 - Pain in left hand OT Evaluation and Treatment Today S63.502A - Unspecified sprain of left wrist, initial encounter Patient Instructions: Scribed for Alex Monson PA-C, by Tony Verma coroner/medical examiner, on 06/06/2023 at 10:00 AM EST. I, Alex Monson PA-C, have personally reviewed and agree with the information entered by the scribe. Coding Level of Care Code New Pt Level 3 (73906) Diagnoses Sprain of left wrist, initial encounter S63.502A Encounter type: initial encounter Arthritis of carpometacarpal (CMC) joint of left thumb M18.12
== END 2023-06-06 10:32 | disposition home or self-care (01) ==
PROVIDERS: PCP Internal Medicine; Visit Provider Physician Assistant
DX: S63.502A Unspecified sprain of left wrist, initial encounter (principal); M18.12 Unilateral primary osteoarthritis of first carpometacarpal joint, left hand
CPT/HCPCS: 99213

== ENCOUNTER 2023-06-06 13:41 | Outpatient (REF) | payer MEDICARE, OTHER, SELFPAY ==
--- NOTE | ~2023-06-06 | XR_ITS ---
EXAMINATION: XR HAND, LEFT CLINICAL INFORMATION: Pain. COMPARISON: Radiographs dated 04/30/2023. TECHNIQUE: PA, lateral, and oblique views of the left hand. FINDINGS: The bones and soft tissues are normal. No fracture. Alignment is anatomic. Joint spaces are maintained. No erosions or soft tissue calcifications. XR/XR hand LT min 3V IMPRESSION: Normal left hand.
== END 2023-06-06 13:42 | disposition home or self-care (01) ==
LOC: HO.HOSX 13:41
PROVIDERS: Visit Provider Physician Assistant
DX: S63.502A Unspecified sprain of left wrist, initial encounter (principal); M18.12 Unilateral primary osteoarthritis of first carpometacarpal joint, left hand
CPT/HCPCS: 73130; 99212

== ENCOUNTER 2023-07-16 09:00 | Outpatient (RCR) | payer MEDICARE, OTHER, SELFPAY ==
--- NOTE | 2023-06-22 12:51 | MHC.OT.OEV ---
[address] [phone] F: [phone] Occupational Therapy Evaluation Patient Name: Steven Logan Diagnosis: (L)wrist sprain Date of Onset: 04/22/23 Date of Surgery: Attending Provider: Alex Monson Prescribed Treatment: MD Follow Up Appointment: History of Current Condition: Patient is a 68 year old right handed male who sustained a fall in the garden when attempting to place a decorative flag pole into the ground on 04/22/2023. When he went to place it in the ground was frozen causing him to fall forward and land on his hand. This resulted in a (L)wrist sprain on the ulnar side of the wrist. 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 Sleep: Pain does not wake him Driving: Vision: Balance: Pain Assessment Pain Score: 3 Pain Scale Used: Numeric (0 - 10) Pain Location and Description: 0/10 at rest 3/10 during movement (L)ulnar side of wrist and (L) CMC and 2nd finger Aggravating Factors: Lifting heavy items Alleviating Factors: Ibuprofen, tylonal Skin and Soft Tissue Assessment Skin and Soft Tissue: Comments: WFL Skin intact Nerve assessment Ulnar Nerve: Median Nerve: Radial Nerve: Comments: Sensory Assessment Temperature: WNL Light Touch: WNL Proprioception: WNL Vibration: WNL Comments: Monofilament Test= WNLs Edema Assessment Upper Extremity: WNL Lower Extremity: Comments: No edema present Dexterity Assessment Dexterity: Right Impaired Comments: Functional Dexterity Test (L)26.89 seconds (R)31.07 seconds Special Tests Comments: AROM(PROM) Strength Cervical Cervical Flexion: Cervical Extension: Cervical Lateral Flexion: Cervical Rotation: Comments: Shoulder Flexion: Extension: Abduction: Internal Rotation: External Rotation: Comments: WFL Flexion: Extension: Abduction: Internal Rotation: External Rotation: Comments: WFL Elbow Flexion: Extension: Pronation: Supination: Comments: WFL Flexion: Extension: Pronation: Supination: Comments: WFL Wrist Flexion: (L)95* Extension: (L)75* Ulnar Deviation: (L)20* Radial Deviation: (L)25* Comments: Pain with radial and ulnar deviation, patient reports 5/10 Flexion: Extension: Ulnar Deviation: Radial Deviation: Comments: Thumb Thumb CMC Flexion: Thumb MCP Flexion: Thumb IP Flexion: Radial Abduction: Palmar Abduction: [place] ([place] 0-10): Comments: WFL Digits Index MCP: PIP: DIP: Long MCP: PIP: DIP: Ring MCP: PIP: DIP: Small MCP: PIP: DIP: Comments: WFL Gross Grasp: (R)58lbs., (L)46.6lbs. Lateral Pinch: (L)14lbs. Two-Point Pinch: (L)6lbs. Three-Jaw Nav: (L)7lbs. Comments: Patient Education Primary Language: Yemeni Digital Designer Required: Current Knowledge: Teaching Method: Education Needs Identified on Evaluation: How did patient/family demonstrate learning? Barriers to Learning: Readiness for Learning: Who was educated? Comments: Plan of Care Assessment: Patient is a 68 year old male who sustained a fall in his garden resulting in a (L)wrist sprain on the ulnar side of the wrist, he also reported pain of the CMC and 2nd digit. 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 Per patient report x-rays reveled his has mild OA in his (L)hand. Currently he is wearing a comfort cool brace and reported 0/10 pain at rest and 3/10 pain with movement in his left wrist on the ulnar side. His wrist measurements are as follows: 95* flexion, 75* extension, 25* radial deviation, 20* ulnar deviation, digits are WFLs. Patient's home economics teacher strength is 58lbs. (R) and 46.6lbs. (L) which is below average for patient's age and gender. Quick DASH= 50 indicating patient's perceived perception of UE impairment during self care tasks. Based on initial evaluation patient's current level of function is min (A) IADLs as he presents with impaired ROM, impaired strength, impaired functional activity tolerance as patient reports 3/10 pain during activity, and impaired performance during self care tasks. Due to the documented impairments it is recommended that patient receive skilled OT in order to achieve his PLOF of (I) during self care tasks. Thank you for your referral. STG Duration: 2 weeks Short Term Goals: Patient will increase (L)wrist deviation by 10* Patient will decrease (L)wrist pain to 1/10 Patient will increase (L)home economics teacher strength by 5lbs. Patient will wean from comfort cool brace during ADL/IADL tasks LTG Duration: 4 weeks Long-Term Goals: Patient will have wrist ROM WFLs for (I) performance of ADLs/IADLs Patient will report 0/10 pain when performing ADLs Patient will increase home economics teacher strength by 10lbs. Patient will be (I) with HEP Frequency and Duration: The patient will be seen 2x a week for 4 weeks Treatment Plan: Therapeutic Exercise Therapeutic Activity Home Exercise Program Patient Education Edema Control ADL Training Paraffin Fluidotherapy MHP Cold Packs Kinesiotaping OT eval and treat Electronically Signed By: JACQUIE Potter/Otilio,CLT Reviewed/agree with student documentation: Therapist: Please sign and return to therapist, Thank you for your referral.
== END 2023-11-01 10:37 | disposition home or self-care (01) ==
LOC: HO.OT 09:00
PROVIDERS: PCP Internal Medicine; Visit Provider Physician Assistant
DX: S63.502A Unspecified sprain of left wrist, initial encounter (principal)
CPT/HCPCS: 97035; 97110; 97166

== ENCOUNTER 2023-10-17 09:16 | Outpatient (REF) | payer MEDICARE, OTHER, SELFPAY ==
--- NOTE | ~2023-10-17 | US_ITS ---
EXAMINATION: US RETROPERITONEAL LIMITED (RENAL ONLY) CLINICAL INFORMATION: Calculus of kidney. Partial right nephrectomy. COMPARISON: CT abdomen and pelvis 01/03/2023. MRI kidney 11/25/2021. Renal ultrasound 07/08/2021 and 01/21/2021. TECHNIQUE: Real-time imaging of the kidneys. Limited visualization due to bowel gas. FINDINGS: RIGHT KIDNEY: 10.4 x 6.0 x 6.0 cm (SAG x AP x TRV). History of partial right nephrectomy. Right renal 6 mm mid pole calculus. No hydronephrosis. Limited visualization. Midpole 0.9 cm and 0.8 cm pole cysts with benign features. There is no indication for follow-up imaging. LEFT KIDNEY: 13.5 x 6.6 x 6.8 cm (SAG x AP x TRV). Left renal 0.5 cm mid pole calculus. No hydronephrosis. Limited visualization. A 2.2 cm exophytic lateral midpole pole cyst with benign features. There is no indication for follow-up imaging. Renal cortical thickness is normal. US/US renal BI IMPRESSION: 1. Bilateral renal calculi. No hydronephrosis. 2. History of partial right nephrectomy.
== END 2023-10-17 09:17 | disposition home or self-care (01) ==
LOC: HO.US 09:16
PROVIDERS: PCP Internal Medicine; Visit Provider Urology
DX: N20.0 Calculus of kidney (principal)
CPT/HCPCS: 76775

== ENCOUNTER 2023-10-31 13:23 | Outpatient (AMB) | payer MEDICARE, OTHER, SELFPAY ==
--- NOTE | 2023-10-31 13:45 | A.OFFVIS_ITS ---
Intake Visit Reasons: 6m/US/litholink(set) Intake Note: Patient is Present for Follow Up Ultrasound Urology Medication: Vitamin B6, Tamsulosin Antibiotic Allergies:None Blood Thinners:None Allergies Yeast [YEAST] Allergy (Intermediate, Verified 10/31/23 13:46) HIGH DOSES-SEES BLACK SPOTS, HOT FLASHES Medication List - Last Reconciled 10/31/23 by Yehuda Crump MD allopurinol 100 mg PO DAILY 90 days dicyclomine 10 mg PO Q6H PRN diltiazem HCl CD 120 mg PO DAILY ibuprofen 600 mg PO TID PRN metoprolol tartrate 50 mg PO BID prednisone 20 mg PO DAILY 3 days pyridoxine (vitamin B6) 50 mg PO DAILY 90 days simvastatin 20 mg PO DAILY tamsulosin 0.4 mg PO BEDTIME 90 days HPI Comments Details: Steven is a pleasant male. He is a patient of Dr. Hennessy. He is seen for following urologic conditions - prostate cancer salvage radiation - renal cancer partial nephrectomy - nephrolithiasis Six-month follow-up imaging 5 mm bilateral stone Did not complete Litholink Did have episode of urinary bleeding yesterday but self resolved Known prostate cancer with previous external beam radiation Continue vitamin B6 with allopurinol Prostate Cancer initial management radical prostatectomy, EXP RT for rising PSA 10 years following Diagnosed in early Initial management with prostatectomy Had rising PSA 10 years after diagnosis Managed with radiation Currently has some difficulty with urination secondary to radiation stricture but not enough to warrant dilatation. Investigations - PSA 01/31 < 0.1, 08/01 <0.1, 02/01 <0.1, Renal cancer Partial nephrectomy 2004 Managed with regular imaging Nephrolithiasis Ongoing Stone analysis 07/03 uric acid 20%, calcium oxalate monohydrate 80% Management allopurinol, vitamin B6 Surveillance imaging - 08/01 renal ultrasound - right side single cyst 1 cm, left side multiple cysts up to 2.5 cm, left side stone 6 mm - 10/01 CT punctate stones no evidence of recurrence of renal cancer - 07/05 renal ultrasound bilateral renal cysts up to 2.5 cm, small 4 mm stone right, small 4 mm stone left - 01/03 CT 4.5 x 6 mm left ureterovesicular junction calculus with mild left hydroureter and hydronephrosis. Therapeutic plan - allopurinol and vitamin B6 - recommend increased fluid intake [facility] Medical History Morbid obesity On beta priya at home Sinus headache Obstructive sleep apnea (adult) (pediatric) BPH loc w urin obs/LUTS Radiation cystitis Gallstones HTN (hypertension) Renal stones Renal cancer Prostate cancer Hyperlipidemia BOO on CPAP SVT (supraventricular tachycardia) Surgical History History of lithotripsy History of colonoscopy History of biopsy of bladder History of prostatectomy History of partial nephrectomy History of laparoscopic cholecystectomy Family History Father No problems noted. Mother No problems noted. 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 Review of Systems Const Denies chills and Denies fever(s) Card Reports no additional complaints and Denies syncope Resp Denies cough GI Denies abdominal pain and Denies heartburn Reports as per HPI and Denies change in libido Neuro Denies syncope Psych Denies change in libido Endo Denies change in libido Physical Exam Const General: cooperative, healthy appearing, comfortable and no acute distress Orientation/consciousness: patient oriented x3 HEENT Face and sinus: Yes normal facial exam Mouth: moist mucous membranes Neck Neck: Yes normal visual inspection, Yes full ROM and Yes trachea midline Chest Chest palpation & inspection: normal inspection of the chest Resp Effort & Inspection: normal respiratory effort, able to speak in complete sentences and no respiratory distress GI Inspection: Yes normal to inspection Back/Spine/Pelvis Cervical Spine: normal cervical lordosis Thoracic/Lumbar Spine: thoracic and lumbar spine normal to inspection Skin General skin exam: no rashes or lesions noted Neuro General: patient oriented x3, gait normal, tone normal and moves all extremities Extrem General: Yes normal to inspection and Yes capillary refill normal Assessment & Plan Assessment & Plan (1) Prostate cancer: Comment: Radical prostatectomy with rising PSA and radiation therapy 2009 Code(s): C61 - Malignant neoplasm of prostate Category: Medical (2) Renal cancer: Code(s): C64.9 - Malignant neoplasm of unspecified kidney, except renal pelvis Category: Medical (3) Nephrolithiasis: Comment: Uric acid stones Code(s): N20.0 - Calculus of kidney Category: Medical Plan Twelve month follow-up renal ultrasound and PSA Orders: Orders US renal BI 12 Months N20.0 - Calculus of kidney Prostate Specific Antigen 364 Days C61 - Malignant neoplasm of prostate Patient Instructions: Imaging studies, laboratory and physical exam results were discussed and review ed in detail. No major barriers to patient understanding were identified. An opportunity to ask questions regarding the treatment plan was provided. All questions were answered. The patient expressed understanding and agreement with the above treatment plan. The patient is aware they should contact our office by phone for worsening of their current condition or the appearance of new urologic symptoms. Compliance is encouraged with any medications and followup testing that is ordered. It is a privilege to participate in the urologic care of your patient. If you have any questions or concerns regarding treatment for the above conditions, or other urologic issues, please do not hesitate to contact me. The office telephone contact is [phone]. This note is constructed using voice recognition software. While every effort has been made to ensure accuracy regulatory submissions associate errors may have been included. Yours sincerely, Dr Yehuda Crump MD, [facility] - Urology Providers of Expert, Compassionate Care for the Genitourinary System Coding Level of Care Code Est Pt Level 4 (57334) Diagnoses Prostate cancer C61 Renal cancer C64.9 Nephrolithiasis N20.0
== END 2023-10-31 14:23 | disposition home or self-care (01) ==
PROVIDERS: PCP Internal Medicine; Visit Provider Urology
DX: C61 Malignant neoplasm of prostate (principal); C64.9 Malignant neoplasm of unspecified kidney, except renal pelvis; N20.0 Calculus of kidney
CPT/HCPCS: 99213

== ENCOUNTER → 2023-10-31 13:23 | Outpatient (BNVA) | payer MEDICARE, OTHER, SELFPAY | PROVIDERS: PCP Internal Medicine; Visit Provider Urology | DX: C64.9 Malignant neoplasm of unspecified kidney, except renal pelvis (principal); C61 Malignant neoplasm of prostate; N20.0 Calculus of kidney | CPT/HCPCS: 99212 ==

== ENCOUNTER 2024-02-28 13:11 | Outpatient (AMB) | payer MEDICARE, OTHER, SELFPAY ==
--- NOTE | 2024-02-28 13:17 | MHC.OFFVIS ---
Vital Signs 02/28/24 13:18 Height 5 ft 10 in Weight 277 lb 5.464 oz BMI 39.8 BP 132/76 Blood Pressure Location Lt brachial Position Sitting Pulse 69 Intake Visit Reasons: 1 year follow up Hopper Filler Required: No Accompanied by: Self / Same As Patient Allergies Yeast [YEAST] Allergy (Intermediate, Verified 10/31/23 13:46) HIGH DOSES-SEES BLACK SPOTS, HOT FLASHES Medication List - Last Reconciled 02/28/24 by Jack Mejias MD allopurinol 100 mg PO DAILY 90 days dicyclomine 10 mg PO Q6H PRN diltiazem HCl CD 120 mg PO DAILY ibuprofen 600 mg PO TID PRN metoprolol tartrate 50 mg PO BID oxycodone 5 mg PO BEDTIME PRN 30 days pyridoxine (vitamin B6) 50 mg PO DAILY 90 days simvastatin 20 mg PO DAILY tamsulosin 0.4 mg PO BEDTIME 90 days HPI Comments Details: Steven returns for follow-up regarding SVT. To recall, he has a history of palpitations that go back almost 30 years. He gets chest pounding during these times and also some associated dizziness. He normally feels better by splashing water on his face, lying down, valsalva type maneuvers extra. On some occasions, he had to be transferred to the ER and has been given adenosine at different times with good effect. He also has obstructive sleep apnea on CPAP. Otherwise, no history of any coronary disease myocardial infarction or cardiomyopathy or in fact anything else that regard. Since last seen, he states he feels fine. No further SVT. No other symptoms like exertional angina or shortness of breath. Otherwise, he feels fine. Currently on diltiazem/metoprolol. [facility] Medical History Morbid obesity On beta priya at home Sinus headache Obstructive sleep apnea (adult) (pediatric) BPH loc w urin obs/LUTS Radiation cystitis Gallstones HTN (hypertension) Renal stones Renal cancer Prostate cancer Hyperlipidemia BOO on CPAP SVT (supraventricular tachycardia) Surgical History History of lithotripsy History of colonoscopy History of biopsy of bladder History of prostatectomy History of partial nephrectomy History of laparoscopic cholecystectomy Family History Father No problems noted. Mother No problems noted. 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 Review of Systems Const Denies chills, Denies fatigue, Denies fever(s), Denies weight gain and Denies weight loss ENT Denies dizziness Card Denies chest pain, Denies leg edema, Denies lightheadedness, Denies palpitations, Denies dyspnea on exertion, Denies orthopnea and Denies other Resp Denies cough and Denies dyspnea on exertion GI Denies hematochezia and Denies change in stool character Musc Denies abnormal gait, Denies muscle weakness, Denies numbness, Denies radiating pain into limb and Denies tingling Neuro Denies abnormal gait, Denies dizziness, Denies numbness and Denies tingling Endo Denies fatigue and Denies palpitations Physical Exam Vital Signs: Last Vital Signs Pulse 69 02/28/24 13:18 BP 132/76 02/28/24 13:18 BMI result Body Mass Index 39.8 Const General: comfortable and no acute distress Orientation/consciousness: patient oriented x3 HEENT Other: Unremarkable Head: Yes normal to inspection Neck Neck: Yes normal visual inspection Chest Chest palpation & inspection: normal inspection of the chest Resp Auscultation: clear to auscultation bilaterally Cardio Palpation: normal PMI Heart sounds: S1 normal heart sound present, S2 normal heart sound present, no gallops, no murmurs and no rubs GI Palpation (GI): Soft to palpation Back/Spine/Pelvis Other: unremarkable Skin General skin exam: no rashes or lesions noted Neuro General: patient oriented x3 Extrem General: Yes normal to inspection Psych Mental Status: mental status grossly normal Office Procedures EKG Details: EKG with underlying artifact; underlying sinus rhythm at 69/Min; no significant ST-T changes and otherwise unremarkable. 15469-Utuisyhhyjvabzxiw, Complete Assessment & Plan Assessment & Plan (1) SVT (supraventricular tachycardia): Code(s): I47.1 - Supraventricular tachycardia Category: Medical (2) Morbid obesity: Code(s): E66.01 - Morbid (severe) obesity due to excess calories Category: Medical (3) BOO on CPAP: Code(s): G47.33 - Obstructive sleep apnea (adult) (pediatric); Z99.89 - Dependence on other enabling machines and devices Category: Medical Plan Prior EKG from ER- narrow complex tachycardia at 184/Min. Most likely AV beto type reentrant tachycardia. In the followup EKG, he was in sinus rhythm. Echocardiogram with normal LVEF, 60-65%, mild aortic valve calcification and mild tricuspid regurgitation but otherwise unremarkable. Main recommendation is to lose weight as much able and we again discussed that today. Continue CPAP regularly. Continue medications including metoprolol/diltiazem. He will contact us if there is any recurrent SVT or other cardiac symptoms. Follow-up planned in 2 years. Coding Level of Care Code Est Pt Level 3 (91462) Diagnoses SVT (supraventricular tachycardia) I47.1 Morbid obesity E66.01 BOO on CPAP G47.33; Z99.89 CPT Codes EKG - CPT: 69100-Ulxgrhzsxbjivaolk, Complete ([id number])
[2024-02-28 13:18] VITALS: BP 132/76; PULSE 69; BMI 39.8
== END 2024-02-28 13:41 | disposition home or self-care (01) ==
PROVIDERS: PCP Internal Medicine; Visit Provider Internal Medicine
DX: I47.10 Supraventricular tachycardia, unspecified (principal); E66.01 Morbid (severe) obesity due to excess calories; G47.33 Obstructive sleep apnea (adult) (pediatric); Z99.89 Dependence on other enabling machines and devices
CPT/HCPCS: 93010; 99213

== ENCOUNTER → 2024-02-28 13:11 | Outpatient (BNVA) | payer OTHER, MEDICARE, SELFPAY | PROVIDERS: PCP Internal Medicine; Visit Provider Internal Medicine | DX: I47.10 Supraventricular tachycardia, unspecified (principal); E66.01 Morbid (severe) obesity due to excess calories; Z68.39 Body mass index [BMI] 39.0-39.9, adult; G47.33 Obstructive sleep apnea (adult) (pediatric); Z99.89 Dependence on other enabling machines and devices | CPT/HCPCS: 93005 ==

== ENCOUNTER 2024-04-16 14:56 | Outpatient (REF) | payer MEDICARE, OTHER, SELFPAY ==
--- NOTE | ~2024-04-16 | US_ITS ---
EXAMINATION: US TRIPLEX LOWER EXTREMITY, RIGHT CLINICAL INFORMATION: Right lower extremity pain COMPARISON: None available. TECHNIQUE: Color-flow triplex imaging with spectral analysis and compression Doppler were performed on the right lower extremity. FINDINGS: Respiratory variation, normal compression and augmented flow are noted throughout the right lower extremity. The visualized common femoral vein, superficial femoral vein, profunda femoral vein, popliteal vein and midcalf peroneal and posterior tibial venous segments show no evidence of deep venous thrombosis. There is no Perales's cyst. US/US venous duplex LE RT IMPRESSION: No evidence of deep venous thrombosis involving the right lower extremity. Electronically signed by: Marc Reece MD 04/16/2024 04:18 PM EST RP
--- OUTSIDE RECORDS SUMMARY | 2024-04-22 20:55 | XMS_ITS | Continuity of Care Document ---
Author Organization [place] [facility] Zahraa Randall AONE [place] Address [address] [place] [address] Care Team Providers Care Front End Assistant Name Role Phone NITZA DANIELS Primary Care Provider NITZA DANIELS Referring Provider [phone] Assessment Encounter Date Assessment Date Assessment LastModified by Organization Details LastModified Time 01/23/2024 01/23/2024 Patient has made notable improvement since his last visit in November. We reviewed his x-rays together on the computer. He has been using his brace only with heavy lifting, otherwise he is very pleased with his progress. He reported only slight discomfort at end extension and slight discomfort with ulnar deviation. Overall he is very pleased with his progress. He was recommended to continue range of motion activities. There is small dorsally displaced ossification noted on the lateral view. He will follow-up with Dr. Pryor in 2 to 3 weeks, sooner for any complications. 11/22/2023 LS: The above findings were discussed in detail today with the patient. He is evidence of a left wrist triquetral impaction fracture and a wrist sprain. Pathology expected prognosis were discussed. Treatment options include brace immobilization, activity modification, anti-inflammato katrin, and early active motion. He will remain in his splint for another week and then can begin to wean out of it and work on active range of motion exercises of the wrist. These were shown to him today in the office and he is capable of doing them on at home on his own. He will refrain from heavy lifting or activities for the next 2 to 3 weeks and advanced activities as tolerated. He can continue to ice and take anti-inflammato katrin as needed for pain. I will see him back for follow-up in 4 weeks time for reevaluation, if he is having significant stiffness or dysfunction at that time, we will consider sending him to physical therapy. All of his questions were answered, he is in agreement with plan. [email or web address] Not available 02/03/2024 21:25:23 Plan of Treatment Reminders Order Date Submit Date Provider Last Modified By Organization Details Last Modified Time Details Appointments None record ed. Lab None record ed. Referral None record ed. Procedures None record ed. Surgeries None record ed. Imaging XR, wrist, 3 or more view 024 01/23/20 24 [id number] [facility], [address], [address], [place], [address], 11:45:24 Medication Orders None record ed. Patient TargetsNo targets recorded. Patient Instructions Encounter Date Encounter Id Patient Instructions Last Modified By Organization Details Last Modified Time 01/23/2024 [id number] views of the left wrist were obtained in the [facility] office on 01/23/2024 compared to previous. X-rays demonstrates a triquetral impaction fracture at the dorsal triquetrum. No other acute findings noted. There is anatomic alignment of the wrist and carpal bones. Images interpreted by: ILANA [email or web address] Not available 02/03/2024 21:26:11 Reason for Referral None Reported. Problems Name Problem SNOMED Code Status Onset Date Resolution Date Notes Provider Name and Address Organization Details Recorded Time Closed fracture of triquetral bone of wrist 88247509 Active 2023 Liliana merchant MD [address], [place], [address], [place] [facility] 4 16:13:44 Sprain of left wrist [id number] 9104 Active 2023 Liliana merchant MD [address] [facility], [place], [address], [place] [facility] 4 16:13:54 Problem Notes None recorded. Procedures Surgical History Date Name Laterality Status Provider Name and Address Organization Details Recorded Time partial nephrectomy completed Cat More [facility] 11/22/2023 16:16:52 Gallbladder Surgery completed Cat Weaver [facility] 11/22/2023 16:17:40 prostatectomy completed Cat Owen [facility] 11/22/2023 16:17:52 Imaging Results None recorded. Procedure Notes None recorded. Medical Equipment None Reported. Medications Name Sig Start Date Stop Date Status Note LastModified by Organization Details LastModified Time azithromyci n 250 mg tablet TAKE 1 TABLET BY MOUTH EVERY DAY 02/13 completed Not Available Not Available Not Available prednisone 20 mg tablet TAKE 1 TABLET BY MOUTH ONCE DAILY FOR 5 DAYS. 02/13 completed Not Available Not Available Not Available allopurinol 100 mg tablet TAKE 1 TABLET BY MOUTH EVERY DAY active Not Available Not Available No t Available ketorolac 10 mg tablet TAKE 1 TABLET BY MOUTH EVERY 6 HOURS NEEDED FOR PAIN FOR 3 DAYS 02/13 completed Not Available Not Available Not Available tamsulosin 0.4 mg capsule TAKE 1 CAPSULE BY MOUTH AT BEDTIME active Not Available Not Available No t Available simvastatin 20 mg tablet TAKE 1 TABLET BY MOUTH EVERY DAY active Not Available Not Available No t Available oxycodone 5 mg capsule TAKE 1 TABLET(S) BY MOUTH EVERY 4-6 HOURS NEEDED 02/13 completed Not Available Not Available Not Available metoprolol tartrate 50 mg tablet TAKE 1 &1/2 TABLET BY MOUTH TWICE A DAY active Not Available Not Available No t Available pyridoxine (vitamin B6) 50 mg tablet TAKE 1 TABLET BY MOUTH EVERY DAY active Not Available Not Available No t Available diltiazem CD 120 mg capsule,ext ended release 24 hr TAKE 1 CAPSULE BY MOUTH EVERY DAY active Not Available Not Available No t Available codeine 10 mg-guaifene sin 100 mg/5 mL oral liquid TAKE 1 TEASPOONF UL BY MOUTH EVERY 4-6 HOURS NEEDED 02/13 completed Not Available Not Available Not Available ibuprofen 600 mg tablet TAKE 1 TABLET BY MOUTH UP TO 3 TIMES A DAY NEEDED FOR FEVER OR PAIN. 02/13 completed Not Available Not Available Not Available ondansetron 4 mg disintegrat ing tablet TAKE 1 TAB ORALLY EVERY 8 HOURS NEEDED FOR NAUSEA AND VOMITING 02/13 completed Not Available Not Available Not Available dicyclomine 10 mg capsule TAKE 1-2 CAPSULES BY MOUTH 30-60 MINUTES BEFORE EACH MEAL FOR ABDOMINAL CRAMPS/DI ARRHEA active Not Available Not Available No t Available oxycodone 5 mg tablet TAKE 1 TABLET BY MOUTH BEDTIME NEEDED FOR PAIN FOR 30 DAYS. 02/13 completed Not Available Not Available Not Available Paxlovid 150 mg-100 mg tablets in a dose pack (Renal Dose) TAKE 2 TABLETS BY MOUTH TWICE A DAY 02/13 completed Not Available Not Available Not Available Vitals Date Recorded Body height Provider Name an d Address Organization Details Last Updated DateTime 01/23/2024 179.07 cm [facility] 01/23/2024 08:50:11 Social History Question Answer Notes LastModified by Organizat ion Details LastModified Time Tobacco Smoking Status Never Smoker [facility] 01/23/2024 08:50:26 What Is Your Level Of Alcohol Consumption? None Information not available 01/23/2024 Are You Blind Or Do You Have Difficulty Seeing? No Information not available 11/22/2023 Are You Deaf Or Do You Have Serious Difficulty Hearing? Yes Mild Information not available 11/22/2023 Do You Use Any Illicit Or Recreational Drugs? No Information not available 01/23/2024 Do You Or Have You Ever Used Any Other Forms Of Tobacco Or Nicotine? No Information not available 01/23/2024 Sex: Unknown Functional Status Question Answer Note LastModified by Organization D etails LastModified Time Are you able to care for yourself? Yes Information n ot available 11/22/2023 Mental Status None recorded. Family History Relationship Description Onset Age of this Age Resolved Age Notes LastModified by Organization Details LastModified Time Father History of cancer of unknown primary site snarus Not available 03/2024 16:18:15 Mother Hypertensive disorder snarus Not available 2023 16:18:24 Sister Scoliosis deformity of spine snarus Not available 2023 16:18:35 Medical History Condition Response Heart Disease Y Cancer Y Kidney Disease Y Past Encounters Encounter ID Performer Location Encounter Start Date Encounter Closed Date Diagnosis/Indication Diagnosis SNOMED-CT Code Diagnosis ICD10 Code [id number] MD GLENN Wilkinson [facility] [address] [place] [address] 01/23/2024 08:21:08 01/23/2024 09:30:00 Pain of left wrist 9941113206 07375 M25.532 Closed fra cture of triquetral bone of wrist 60065408 S62.115A Sprain of left wrist 191 3467414 9378292 S63.502A Health Concerns Section Related Observation LastModified by Organization Detai ls LastModified Time None Recorded Concern Status LastModified by Organization Details LastModified Time None Recorded Payers Encounter Date Sequence Insurance Name Policy Number Policy Mcarthur Covered Member ID Mcarthur Member ID Guarantor Name 01/23/2024 1 MEDICARE B-CT: NGS Steven Logan [id number] Steven Doreen 01/23/2024 2 [employer] [facility] [employer] - PLAN 1 (MEDICARE SUPPLEMENT) [id number] Steven H Doreen [id number] Steven Logan Notes Date Note Type Note Provider Name and Address Organization Details Recorded Time 01/23/2024 text/html Patient is a 68-year-old male who presents today status post left wrist sprain and a triquetral fracture. He was seen by Dr. Pryor. He had been in a wrist splint and had doing well using the splint. He was instructed to refrain from heavy lifting or activities for the next 2 to 3 weeks and advanced activities as tolerated. He did not follow-up. He was contacted and recommended for follow-up with x-rays. He returns today reporting no discomfort in his wrist unless he is doing heavy lifting. He still has some slight discomfort in the ulnar aspect of his wrist. He had limited motion only at end extension and ulnar deviation. 11/22/2023 LS:This is a 68-year-old inivs-qkor-rradvho t male who presents with a left wrist injury when he fell on 11/12/2023. He is vacationing in [place] and sustained a fall onto his right side, however the left wrist was also impacted. He went to an urgent care in that area for evaluation, x-rays were taken, he was diagnosed with a left wrist triquetral fracture and placed in a wrist splint. He also sustained an ankle sprain and a rib contusion. He is following up with his primary care physician regarding these. He has been in the wrist splint for the last 10 days, his pain has been well-controlled. He notes that the swelling and bruising has subsided. He denies any numbness or tingling. He had been icing and taking [id number] medication for pain control. He notes pain when he is out of the brace and tries to move the wrist. Denies prior history of injury to the wrist before. CHRISTIAN ELISE PA-C [address], [place], [address], [place] [facility] 02/03/2024 21:26:51
--- OUTSIDE RECORDS SUMMARY | 2024-04-22 20:55 | XMS_ITS | Data Portability ---
Author Organization [place] [facility] Zahraa Randall AONE Walls Address [address] [place] [address] Care Team Providers Care Piping Designer Name Role Phone NITZA DANIELS Primary Care Provider NITZA DANIELS Referring Provider [phone] Assessment Encounter Date Assessment Date Assessment LastModified by Organization Details LastModified Time 11/22/2023 11/22/2023 The above findings were discussed in detail today with the patient. He is evidence of a left wrist triquetral impaction fracture and a wrist sprain. Pathology expected prognosis were discussed. Treatment options include brace immobilization, activity modification, anti-inflammator ies, and early active motion. He will remain [...] He can continue to ice and take anti-inflammator ies as needed for pain. I will see him back for follow-up in 4 weeks time for reevaluation, if he is having significant stiffness or dysfunction at that time, we will consider sending him to physical therapy. All of his questions were answered, he is in agreement with plan. Not available 11/22/2023 16:13:31 01/23/2024 01/23/2024 Patient has made notable improvement [...] Treatment options include brace immobilization, activity modification, anti-inflammator ies, and early active motion. He will remain [...] He can continue to ice and take anti-inflammator ies as needed for pain. I will see him back for follow-up in 4 weeks time for reevaluation, if he is having significant stiffness or dysfunction at that time, we will consider sending him to physical therapy. All of his questions were answered, he is in agreement with plan. [email or web address] Not available 02/03/2024 21:25:23 02/14/2024 02/14/2024 The above findings were discussed in detail today with the patient. He has evidence of a left wrist sprain about 3 months from injury, doing well. He has regained full range of motion. He continues to have mild pain localized over the dorsal ulnar wrist and at the ulnar fovea. We discussed that this may take a few more months to completely resolve. He should continue to do activities as tolerated and increase weightbearing as tolerated. He has no restrictions at this point. He can wear the brace if needed for heavier activities. He will continue to experience improvements in strength over the next few months. If he does experience significant pain or deficits with functional activities, he can return to see me in the next 1 to 2 months. All of his questions were answered, he is in agreement the plan. Not available 02/14/2024 08:56:50 Plan of Treatment Reminders Order Date Submit Date Provider Last Modified By Organization Details Last Modified Time Details Appointments None record ed. Lab None record ed. Referral None record ed. Procedures None record ed. Surgeries None record ed. Imaging XR, wrist, 3 or more view 024 11/22/19 24 [email or web address] [facility], [address], [place], [address], 4 16:48:08 XR, wrist, 3 or more view 024 01/23/20 24 [email or web address] [facility], [address], [place], [address], 4 11:45:24 Medication Orders None record ed. Patient TargetsNo targets recorded. Patient Instructions Encounter Date Encounter Id Patient Instructions Last Modified By Organization Details Last Modified Time 11/22/2023 [id number] views of the left wrist were ordered and reviewed today, this demonstrates a triquetral impaction fracture at the dorsal triquetrum. No other acute findings noted. There is anatomic alignment of the wrist and carpal bones. Not available 11/22/2023 16:11:46 01/23/2024 [id number] views of the left wrist were obtained in the [place] office on 01/23/2024 compared to previous. X-rays demonstrates a triquetral impaction fracture at the dorsal triquetrum. No other acute findings noted. There is anatomic alignment of the wrist and carpal bones. Images interpreted by: Art Zavala PA-C Not available 02/03/2024 21:26:11 Reason for Referral None Reported. Problems Name Problem SNOMED Code Status Onset Date Resolution Date Notes Provider Name and Address Organization Details Recorded Time Closed fracture of triquetral bone of wrist 79619060 Active 2023 Liliana merchant MD [address], [place], [address], [place] [facility] 4 16:13:44 Sprain of left wrist 4125255289659 9104 Active 2023 Liliana merchant MD [address], [place], [address], [place] [facility] 16:13:54 Problem Notes None recorded. Procedures Surgical History Date Name Laterality Status Provider Name and Address Organization Details Recorded Time partial nephrectomy completed [facility] [place] [facility] 11/22/2023 16:16:52 Gallbladder Surgery completed [facility] 11/22/2023 16:17:40 [facility] [place] [facility] 11/22/2023 16:17:52 Imaging Results None recorded. Procedure [...] Not Available Vitals Date Recorded Body height Body mass index (BMI) Body weight Provider Name and Address Organization Details Last Updated DateTime 11/22/2023 179.07 cm 37.5 kg/m2 056811.98 g Cat More [facility] 11/22/2023 16:13:48 Date Recorded Body height Provider Name an d Address Organization Details Last Updated DateTime 01/23/2024 179.07 cm Eveline Kellogg [facility] 01/23/2024 08:50:11 Date Recorded Body height Body mass index (BMI) Body weight Provider Name and Address Organization Details Last Updated DateTime 02/14/2024 179.07 cm 37.5 kg/m2 348205.[address] [facility] 02/14/2024 08:45:44 Social History Question Answer Notes LastModified by Organizat ion Details LastModified Time Tobacco Smoking Status Never Smoker Eveline Kellogg jackson, [facility] 01/23/2024 08:50:26 What Is Your [...] available 2023 16:18:35 Medical History Condition Response Cancer Y Kidney Disease Y Heart Disease Y Past Encounters Encounter ID Performer Location Encounter Start Date Encounter Closed Date Diagnosis/Indication Diagnosis SNOMED-CT Code Diagnosis ICD10 Code [id number] Cat More GLENN Cha [address] [facility] [address] [place] [address] 11/22/2023 15:08:31 11/22/2023 15:59:19 Pain of left wrist 8634270480 60331 M25.532 Closed fra cture of triquetral bone of wrist 80101676 S62.115A Sprain of left wrist 969 0431420 8693032 S63.502A [id number] MD GLENN Wilkinson [place] [address] [facility] [address] [place] [address] 01/23/2024 08:21:08 01/23/2024 09:30:00 Pain of left wrist 9858726110 81717 M25.532 Closed fra cture of triquetral bone of wrist 24309082 S62.115A Sprain of left wrist 661 8717906 4536420 S63.502A [id number] Sirisha Angelita Cha [address] [facility] [address] [place] [address] 02/14/2024 08:44:30 02/14/2024 09:23:13 Closed fracture of triquetral bone of wrist 05758548 S62.115A Health Concerns Section Related Observation LastModified by Organization Detai ls LastModified Time None Recorded Concern Status LastModified by Organization Details LastModified Time None Recorded Advance Directives Directive None Recorded Payers Encounter Date Sequence Insurance Name Policy Number Policy Mcarthur Covered Member ID Mcarthur Member ID Guarantor Name 11/22/2023 1 [place] [employer] Steven Cochranoe [id number] Steven Doreen 11/22/2023 2 [facility] 1 (MEDICARE SUPPLEMENT) [id number] 1 Steven Salguero Doreen [id number] Steven Doreen 01/23/2024 1 [place]: [place] Steven H Doreen [id number] Steven Doreen 01/23/2024 2 [facility] 1 (MEDICARE SUPPLEMENT) [id number] 1 Steven H Doreen [id number] Steven Doreen 02/14/2024 1 [place] [employer] Steven Wilksahoe [id number] Steven Doreen 02/14/2024 2 [facility] 1 (MEDICARE SUPPLEMENT) [id number] 1 Stevengalo Wilksahoe [id number] Steven Doreen Notes Date Note Type Note Provider Name and Address Organization Details Recorded Time 11/22/2023 text/html This is a 68-year-old rnnan-xxsg-ucuitm nt male who presents with a left wrist injury when he fell on 11/12/2023. He is vacationing in [place] and sustained a fall onto his right [...] tingling. He had been icing and taking ckaf-phc-sdyyakr medication for pain control. He notes pain when he is out of the brace and tries to move the wrist. Denies prior history of injury to the wrist before. Cat paz, [place] [facility] 11/22/2023 16:18:40 01/23/2024 text/html Patient is a 68-year-old male [...] ulnar deviation. 11/22/2023 LS:This is a 68-year-old vcjml-ooxp-ayhqgw nt male who presents with a left wrist injury when he fell on 11/12/2023. He is vacationing in [place] and sustained a fall onto his right [...] tingling. He had been icing and taking hpdr-vpd-fgdhytz medication for pain control. He notes pain when he is out of the brace and tries to move the wrist. Denies prior history of injury to the wrist before. ART ZAVALA PA-C [address], [place], [address], [place] [facility] 02/03/2024 21:26:51 02/14/2024 text/html He presents for follow-up of his left wrist sprain and dorsal triquetral avulsion fracture, date of injury 11/12/2023, he is 3 months from injury, doing well. He has weaned out of his splint. He has gone back to almost all activities without pain. He does not wear his brace any longer though does have it if he experiences some soreness at the end of the day which is infrequent. He does note pain localized at the ulnar side of the wrist and sometimes into the small finger with certain movements. Sirisha paz, [place] [facility] 02/14/2024 09:05:04
--- OUTSIDE RECORDS SUMMARY | 2024-04-22 20:55 | XMS_ITS | Continuity of Care Document ---
Author Organization [facility] Zahraa Randall AONE Salley Address [address] [facility] [address] [place] [address] Care Team Providers Care Treasurer Name Role Phone NITZA DANIELS Referring Provider [phone] Assessment Encounter Date Assessment Date Assessment LastModified by Organization Details LastModified Time 02/14/2024 02/14/2024 The above findings were discussed [...] record ed. Surgeries None record ed. Imaging None record ed. Medication Orders None record ed. Patient TargetsNo targets recorded. Patient InstructionsNo instructions recorded. Reason for Referral None Reported. Problems Name Problem SNOMED Code Status Onset Date Resolution Date Notes Provider Name and Address Organization Details Recorded Time Closed fracture of triquetral bone of wrist 82874894 Active 2023 Liliana merchant MD [address] [facility], [facility] [place], [address], [place] [facility] [place] 4 16:13:44 Sprain of left wrist 3689912466190 9104 Active 2023 Liliana merchant MD [address] [facility],[address], [place], [address], [place] [facility] [place] 4 16:13:54 Problem Notes None recorded. Procedures Surgical History Date Name Laterality Status Provider Name and Address Organization Details Recorded Time partial nephrectomy completed [facility] [place] [facility] [place] 11/22/2023 16:16:52 Gallbladder Surgery completed [facility] [place] [facility] [place] 11/22/2023 16:17:40 prostatectomy completed [facility] [place] [facility] [place] 11/22/2023 16:17:52 Imaging Results None recorded. [...] Updated DateTime 02/14/2024 179.07 cm 37.5 kg/m2 576523.98 g Kayce Ley [place] [facility] [place] 02/14/2024 08:45:44 Social History Question Answer Notes LastModified by Organizat ion Details LastModified Time Tobacco Smoking Status Never Smoker Eveline paz, [place] [facility] [place] 01/23/2024 08:50:26 What Is Your Level [...] 16:18:35 Medical History Condition Response Cancer Y Heart Disease Y Kidney Disease Y Past Encounters Encounter ID Performer Location Encounter Start Date Encounter Closed Date Diagnosis/Indication Diagnosis SNOMED-CT Code Diagnosis ICD10 Code [id number] Liliana Pryor MD [facility] [address] [facility] [address] [place] [address] 01/23/2024 08:21:08 01/23/2024 09:30:00 Pain of left wrist 5055011618 09052 M25.532 Closed fra cture of triquetral bone of wrist 21780662 S62.115A Sprain of left wrist 896 1043775 6256021 S63.502A [id number] Sirisha Waltoner [facility] [address] [facility] [address] [place] [address] 02/14/2024 08:44:30 02/14/2024 09:23:13 Closed fracture of triquetral bone of wrist 79264015 S62.115A Health Concerns Section Related Observation LastModified by Organization Detai ls LastModified Time None Recorded Concern Status LastModified by Organization Details LastModified Time None Recorded Payers Encounter Date Sequence Insurance Name Policy Number Policy Mcarthur Covered Member ID Mcarthur Member ID Guarantor Name 02/14/2024 1 [place] [employer] Steven Logan [id number] Steven Logan 02/14/2024 2 [facility] 1 (MEDICARE SUPPLEMENT) [id number] 1 Steven Logan [id number] Steven Logan Notes Date Note Type Note Provider Name and Address Organization Details Recorded Time 02/14/2024 text/html He presents for follow-up of [...] movements. Sirisha paz, [place] [facility] [place] 02/14/2024 09:05:04
--- OUTSIDE RECORDS SUMMARY | 2024-04-22 20:56 | XMS_ITS | Patient Health Record ---
Author Organization [facility] Address [address] [place] [address] Care Team Providers Care Associate Professor Of Mathematics Name Role Phone Ethan Hennessy MD Primary Care Provider Milton Astudillo Unavailable [phone] ALLERGIES Allergen (clinical drug ingredient) Drug/Non Drug [...] as directed as directed as directed Active Dicyclomine HCl 10 MG TAKE 1-2 CAPSULE(S ) BY MOUTH 30-60 MINUTES BEFORE EACH MEAL for 90 Active Metoprolol Succinate 50 MG 1 capsule Ora lly twice a day Active Simvastatin 20 MG 1 tablet in the evening Orally Once a day Active IMMUNIZATIONS Vaccine Route Administration Date Status Comme nts Influenza Unknown 01/12/2018 Administered Influenza Unknown 01/12/2021 Administered SOCIAL HISTORY Sex Assigned At : Social History Observation Description Sex Assigned At Unknown PROBLEMS Problem Type ICD Code Onset Dates Problem Status W/U Status Risk SNOMED Code Notes Problem Preprocedural examination (Z01.818) Active confirmed 01206356 Problem Encounter for screening for malignant neoplasm of colon (Z12.11) Active confirmed 576902425 Problem Encounter for screening for malignant neoplasm of rectum (Z12.12) Active confirmed Screening for malignant neoplasm of rectum (649430966) Problem Change in bowel movement (R19.8) Active confirmed 801147346 Problem Abdominal bloating (R14.0) Active confirmed 761051167 Problem Abdominal gas pain (R14.1) Active confirmed 32218144 Problem Hx of adenomatous colonic polyps (Z86.010) Active confirmed 849814002 Problem Other irritable bowel syndrome (K58.8) Active confirmed 13302031 Encounters Encounter Location Date Provider Diagnosis [facility] [address] [place] [address] 10/01/2023 Milton Moncada PLAN OF TREATMENT Future Test Test Name Order Date COLONOSCOPY 09/29/2015 COLONOSCOPY 05/03/2021 Insurance Providers Payer Name Payer Address Payer Phone Subscriber Number Group Number Insured Name Patient Relationship to Insured Coverage Start Date Coverage End Date MEDICARE OF [place] [address] [place] [address] [phone] [id number] BLANCHE DOWD Self - patient is the insured [facility] [address] [place] [address] [phone] [id number] BLANCHE DOWD Self - patient is the insured MEDICAL (GENERAL) HISTORY Medical History History ICD Code Colonosocpy 05-22-2005--hyperplastic polyp Tachycardia --on metoprolol Denies TX,DM,CVA,Lung disease,renal dise ase Right Renal cell cancer---as below Prostate cancer--as below Hyperlipidemia Sleep apnea--uses CPAP Kidney stones-[facility] Colonoscopy 12/2015---1 small tubular adenoma removed, XRT telangiectasias, diverticulosis, internal hemorrhoids allergies- gets injections Surgical [facility], had XR T in 2014 Lap CCY 09/2015-Dr. Estrella Right renal cancer--partial nephrectomy in 2000 at [facility]
--- OUTSIDE RECORDS SUMMARY | 2024-04-22 20:56 | XMS_ITS ---
Author Name [facility] Organization Unknown History of Medication Use Medication Directions Dispensed Refills Start Date End Date [facility] pyridoxine (vitamin B6) 50 mg tablet TAKE 1 TABLET BY MOUTH DAILY 02/07/2024 active metoprolol tartrate 50 mg tablet TAKE 1 &1/2 TABLET BY MOUTH TWICE A DAY 02/07/2024 active Paxlovid 150 mg-100 mg tablets in a dose pack (Renal Dose) TAKE 2 TABLETS BY MOUTH TWICE A DAY 02/07/2024 active simvastatin 20 mg tablet TAKE 1 TABLET BY MOUTH EVERY DAY 02/07/2024 active oxycodone 5 mg tablet TAKE 1 TAB ORALLY EVERY 8 HOURS NEEDED FOR PAIN 02/07/2024 active allopurinol 100 mg tablet TAKE 1 TABLET BY MOUTH EVERY DAY 02/07/2024 active ondansetron 4 mg disintegrating tablet TAKE 1 TAB ORALLY EVERY 8 HOURS NEEDED FOR NAUSEA AND VOMITING 02/07/2024 active tamsulosin 0.4 mg capsule TAKE 1 CAPSULE BY MOUTH AT BEDTIME 02/07/2024 active ibuprofen 600 mg tablet TAKE 1 TAB ORALLY 3 TIMES A DAY NEEDED FOR FEVER OR PAIN 02/07/2024 active codeine 10 mg-guaifenesin 100 mg/5 mL oral liquid TAKE 1 TEASPOONFUL BY MOUTH EVERY 4-6 HOURS NEEDED 02/07/2024 active ketorolac 10 mg tablet TAKE 1 TABLET BY MOUTH EVERY 6 HOURS NEEDED FOR PAIN FOR 3 DAYS 02/07/2024 active oxycodone 5 mg capsule TAKE 1 TABLET(S) BY MOUTH EVERY 4-6 HOURS NEEDED 02/05/2024 active azithromycin 250 mg tablet TAKE 1 TABLET BY MOUTH EVERY DAY 02/05/2024 active prednisone 20 mg tablet TAKE 1 TABLET BY MOUTH EVERY DAY FOR 3 DAYS 02/05/2024 active dicyclomine 10 mg capsule TAKE 1-2 CAPSULES BY MOUTH 30-60 MINUTES BEFORE EACH MEAL FOR ABDOMINAL CRAMPS/DIARRHEA 02/05/2024 active diltiazem CD 120 mg capsule,extended release 24 hr TAKE 1 CAPSULE BY MOUTH EVERY DAY 02/05/2024 active metoprolol tartrate 50 mg tablet TAKE 1 &1/2 TABLET BY MOUTH TWICE A DAY 11/24/2023 active ibuprofen 600 mg tablet TAKE 1 TAB ORALLY 3 TIMES A DAY NEEDED FOR FEVER OR PAIN 11/24/2023 active simvastatin 20 mg tablet TAKE 1 TABLET BY MOUTH EVERY DAY 11/24/2023 active dicyclomine 10 mg capsule TAKE 1-2 CAPSULE(S) BY MOUTH 30-60 MINUTES BEFORE EACH MEAL 90 11/24/2023 active Paxlovid 150 mg-100 mg tablets in a dose pack (Renal Dose) TAKE 2 TABLETS BY MOUTH TWICE A DAY 11/24/2023 active diltiazem CD 120 mg capsule,extended release 24 hr TAKE 1 CAPSULE BY MOUTH EVERY DAY 11/24/2023 active oxycodone 5 mg tablet TAKE 1 TAB ORALLY EVERY 8 HOURS NEEDED FOR PAIN 11/24/2023 active pyridoxine (vitamin B6) 50 mg tablet TAKE 1 TABLET BY MOUTH DAILY 11/24/2023 active ketorolac 10 mg tablet TAKE 1 TABLET BY MOUTH EVERY 6 HOURS NEEDED FOR PAIN FOR 3 DAYS 11/24/2023 active allopurinol 100 mg tablet TAKE 1 TABLET BY MOUTH EVERY DAY 11/24/2023 active codeine 10 mg-guaifenesin 100 mg/5 mL oral liquid TAKE 1 TEASPOONFUL BY MOUTH EVERY 4-6 HOURS NEEDED 11/24/2023 active tamsulosin 0.4 mg capsule TAKE 1 CAPSULE BY MOUTH EVERY DAY AT BEDTIME FOR 90 DAYS 11/24/2023 active azithromycin 250 mg tablet TAKE 1 TABLET BY MOUTH EVERY DAY 11/24/2023 active oxycodone 5 mg capsule TAKE 1 TABLET(S) BY MOUTH EVERY 4-6 HOURS NEEDED 11/24/2023 active prednisone 20 mg tablet TAKE 1 TABLET BY MOUTH EVERY DAY FOR 3 DAYS 11/24/2023 active ondansetron 4 mg disintegrating tablet TAKE 1 TAB ORALLY EVERY 8 HOURS NEEDED FOR NAUSEA AND VOMITING 11/24/2023 active Problems Problem Status Onset Date Problem Type Date of Resoluti on Source Closed fracture of triquetral bone of wrist active 2023-11-22 ProblemAct ENS _AONECT Sprain of left wrist active 2023-11-22 ProblemAct ENS_AONECT
--- OUTSIDE RECORDS SUMMARY | 2024-04-22 20:56 | XMS_ITS ---
Author Organization [facility] Address [address] [place] [address] Care Team Providers Care Pairer Odds Name Role Phone Ethan Hennessy MD Primary Care Provider UnavailMilton Saeed [phone] REASON FOR VISIT refill dicyclomine MEDICATIONS Medication SIG (Take, Route, Fr equency, Duration) Notes Start Date End Date Status Dicyclomine HCl 10 MG TAKE 1-2 CAPSULE(S ) BY MOUTH 30-60 MINUTES BEFORE EACH MEAL Orally Take 30 to 60 minutes before each meal for abdominal cramps/diarrhea for 90 days Acti ve Encounters Encounter Location Date Provider Diagnosis [facility] [address] [facility] [address] [place] [address] 10/01/2023 Milton Moncada PLAN OF TREATMENT Medication Medication Name Sig Start Date Stop Date Notes Dicyclomine HCl 10 MG TAKE 1-2 CAPSULE(S ) BY MOUTH 30-60 MINUTES BEFORE EACH MEAL Orally Take 30 to 60 minutes before each meal for abdominal cramps/diarrhea for 90 days
== END 2024-04-16 14:57 | disposition home or self-care (01) ==
LOC: HO.US 14:56
PROVIDERS: PCP Internal Medicine; Visit Provider Internal Medicine
DX: M79.604 Pain in right leg (principal)
CPT/HCPCS: 93971

== ENCOUNTER 2024-04-17 10:13 | Outpatient (REF) | payer MEDICARE, OTHER, SELFPAY ==
[2024-04-17 10:30] LABS: MANUAL DIFF FLAG NO
[2024-04-17 11:07] LABS: Basophils Percent Auto 0.4 % (0-2); Eosinophils Absolute Auto 0.1 X10*3/uL (0.0-0.4); Eosinophils Percent Auto 1.7 % (0-4); Hematocrit 44.2 % (42.0-52.0); Hemoglobin 14.4 g/dl (14.0-18.0); Imm Gran Abs Auto 0.03 X10*3/uL (0.00-0.03); Imm Gran Pct Auto 0.4 % (0.0-0.4); Lymphocytes Absolute Auto 1.7 X10*3/uL (1.2-4.9); Lymphocytes Percent Auto 21.4 % (20-40); Mean Corpuscular HGB Conc 32.6 g/dl (31.0-36.0); Mean Corpuscular Hemoglobin 30.5 pg (27.0-33.0); Mean Corpuscular Volume 93.6 fL (80.0-98.0); Mean Platelet Volume 9.3 fL (9.4-12.4); Monocytes Absolute Auto 0.9 X10*3/uL (0.1-1.2); Monocytes Percent Auto 10.9 % (2-11); Neutrophils Absolute Auto 5.3 x10*3/uL (2.0-8.3); Neutrophils Percent Auto 65.2 % (45-73); Platelet Count 258 X10*3/uL (160-400); Red Blood Count 4.72 X10*6/uL (4.60-5.80); Red Cell Distribution Width 13.1 % (11.0-16.0); White Blood Count 8.1 X10*3/uL (4.8-10.8)
[2024-04-17 11:09] LABS: Estimated Average Glucose 108 mg/dL; Hemoglobin A1C 131.5192 umol/L; Hemoglobin A1c % 5.4 % (<6.0); Total Hemoglobin (HGBA1C) 3666.9265 umol/L
[2024-04-17 11:18] LABS: Appearance Urine Clear; Color Urine Yellow; Glucose Urine UA Negative (Negative); Leukocyte Esterase Urine Negative (Negative); Nitrite Urine Negative (Negative); PH 5.5 (5.0-9.0); Specific Gravity - Urine 1.025 (1.005-1.025); Urine Blood Negative (Negative); Urine Ketones Negative (Negative); Urine Protein Trace mg/dL (Neg-Trace)
[2024-04-17 11:45] LABS: Alanine Aminotransferase 39 U/L (0-40); Albumin Level 4.2 g/dL (3.5-5.0); Alkaline Phosphatase 61 U/L (39-117); Anion Gap 11 (12-20); Aspartate Amino Transferase 27 U/L (5-37); Bilirubin Total 0.7 mg/dL (0.0-1.0); Blood Urea Nitrogen 13 mg/dL (9-16); Calcium 9.7 mg/dL (8.4-10.2); Carbon Dioxide 29 mmol/L (22-29); Chloride 106 mmol/L (96-108); Cholesterol 156 mg/dL (<200); Estimated Glomerular Filt Rate > 60; Glucose Fasting 105 mg/dL (60-99); HDL Cholesterol 50 mg/dL (>40); LDL Cholesterol Calculated 77 mg/dL (<100); Potassium 4.3 mmol/L (3.3-5.1); Sodium 142 mmol/L (135-145); Total Protein 7.7 g/dL (6.5-8.0); Triglycerides 146 mg/dL (<150)
[2024-04-17 11:50] LABS: Prostate Specific Antigen < 0.10 ng/mL (<0.05-4.0)
[2024-04-17 11:51] LABS: Free T4 (Free Thyroxine) 0.92 ng/dL (0.71-1.85)
[2024-04-17 12:28] LABS: Creatinine Urine 158.62 mg/dL
--- OUTSIDE RECORDS SUMMARY | 2024-04-23 01:31 | XMS_ITS ---
Author Organization [facility] Address [address] [place] [address] Care Team Providers Care Fine Craft Artist Name Role Phone Ethan Hennessy MD Primary Care Provider UnavailMilton Saeed [phone] REASON FOR VISIT refill dicyclomine MEDICATIONS Medication SIG (Take, Route, Fr equency, Duration) Notes Start Date End Date Status Dicyclomine HCl 10 MG TAKE 1-2 CAPSULE(S ) BY MOUTH 30-60 MINUTES BEFORE EACH MEAL Orally Take 30 to 60 minutes before each meal for abdominal cramps/diarrhea for 90 days Acti ve Encounters Encounter Location Date Provider Diagnosis [facility] [address] [facility] [address] [place] [address] 10/01/2023 Milton Moncada PLAN OF TREATMENT Medication Medication Name Sig Start Date Stop Date Notes Dicyclomine HCl 10 MG TAKE 1-2 CAPSULE(S ) BY MOUTH 30-60 MINUTES BEFORE EACH MEAL Orally Take 30 to 60 minutes before each meal for abdominal cramps/diarrhea for 90 days
--- OUTSIDE RECORDS SUMMARY | 2024-04-23 01:32 | XMS_ITS | Patient Health Record ---
Author Organization [facility] Address [address] [place] [id number] Care Team Providers Care Electronic Field Service Engineer Name Role Phone Ethan Hennessy MD Primary Care Provider Milton Astudillo Unavailable [phone] ALLERGIES Allergen (clinical drug ingredient) Drug/Non Drug [...] Notes Problem Preprocedural examination (Z01.818) Active confirmed 39627334 Problem Encounter for screening for malignant neoplasm of colon (Z12.11) Active confirmed 498795810 Problem Encounter for screening for malignant neoplasm of rectum (Z12.12) Active confirmed Screening for malignant neoplasm of rectum (000298820) Problem Change in bowel movement (R19.8) Active confirmed 529580645 Problem Abdominal bloating (R14.0) Active confirmed 900238096 Problem Abdominal gas pain (R14.1) Active confirmed 72980037 Problem Hx of adenomatous colonic polyps (Z86.010) Active confirmed 170261093 Problem Other irritable bowel syndrome (K58.8) Active confirmed 13776392 Encounters Encounter Location Date Provider Diagnosis [facility] [address] [place] [address] 10/01/2023 Milton Moncada PLAN OF TREATMENT Future Test Test Name Order Date COLONOSCOPY 09/29/2015 COLONOSCOPY 05/03/2021 Insurance Providers Payer Name Payer Address Payer Phone Subscriber Number Group Number Insured Name Patient Relationship to Insured Coverage Start Date Coverage End Date MEDICARE OF [place] [address] [place] [address] [id number] BLANCHE DOWD Self - patient is the insured [facility] [address] [place] [phone] [id number] BLANCHE DOWD Self - patient is the insured MEDICAL (GENERAL) HISTORY Medical History History ICD Code Colonosocpy 05-22-2005--hyperplastic polyp Tachycardia --on metoprolol Denies IN,DM,CVA,Lung disease,renal dise ase Right Renal cell cancer---as below Prostate cancer--as below Hyperlipidemia Sleep apnea--uses CPAP Kidney stones-ESWL Colonoscopy 12/2015---1 small tubular adenoma removed, XRT telangiectasias, diverticulosis, internal hemorrhoids allergies- gets injections Surgical History Surgery Date(Month/Year) [facility]/ [facility]--2007, had XR T in 2014 Lap CCY 09/2015-Dr. Estrella Right renal cancer--partial nephrectomy in 2000 at [facility]
== END 2024-04-17 10:14 | disposition home or self-care (01) ==
LOC: HO.LAB 10:13
PROVIDERS: PCP Internal Medicine; Visit Provider Internal Medicine
DX: I10 Essential (primary) hypertension (principal); E78.00 Pure hypercholesterolemia, unspecified; R63.5 Abnormal weight gain; Z12.5 Encounter for screening for malignant neoplasm of prostate; Z13.1 Encounter for screening for diabetes mellitus
CPT/HCPCS: 36415; 80053; 80061; 81003; 82043; 82570; 83036; 84153; 84439; 84443; 85025

== ENCOUNTER 2024-10-22 10:10 | Outpatient (AMB) | payer MEDICARE, OTHER, SELFPAY ==
--- NOTE | 2024-10-22 09:23 | MHC.PC.OV ---
Vital Signs 10/22/24 10:18 Height 5 ft 10 in Weight 277 lb BMI 39.7 BP 128/76 Blood Pressure Location Lt brachial Position Sitting Pulse 61 Pulse Source Pulse Oximeter Temp 98.3 F Temp Source Axillary Pulse Oximetry (%) 97 Oxygen Delivery Method Room Air Intake Visit Reasons: Routine Three Knife Trimmer Required: No Accompanied by: Self / Same As Patient Allergies Yeast [YEAST] Allergy (Intermediate, Verified 10/22/24 10:20) HIGH DOSES-SEES BLACK SPOTS, HOT FLASHES Tobacco use date assessed: 10/22/24 Fall risk assessment: 1 Fall in past year Last assessed Fall Risk: 10/22/24 Dental Screening Dental Screen Date: 10/22/24 Did you have a dental visit in the last 12 months?: Yes Did you have a dental problem in the last 6 months where you did not have access to dental care?: No PFSH Medical History Morbid obesity On beta priya at home Sinus headache Obstructive sleep apnea (adult) (pediatric) BPH loc w urin obs/LUTS Radiation cystitis Gallstones HTN (hypertension) Renal stones Renal cancer Prostate cancer Hyperlipidemia BOO on CPAP SVT (supraventricular tachycardia) Surgical History History of lithotripsy History of colonoscopy (~08/22/21) History of biopsy of bladder History of prostatectomy History of partial nephrectomy History of laparoscopic cholecystectomy Family History (Updated 10/22/24 @ 10:24 by Dahiana Cornejo MA) Father No problems noted. Mother No problems noted. 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 1. Little interest or pleasure in doing things: not at all 2. Feeling down, depressed, or hopeless: not at all 3. Trouble falling or staying asleep, or sleeping too much: not at all 4. Feeling tired or having little energy: not at all 5. Poor appetite or overeating: not at all 6. Feeling bad about yourself - or that you are a failure or have let yourself or your family down: not at all 7. Trouble concentrating on things, such as reading the newspaper or watching television: not at all 8. Moving or speaking so slowly that other people could have noticed. Or the opposite - being so fidgety or restless that you have been moving around a lot more than usual: not at all 9. Thoughts that you would be better off or of hurting yourself in some way: not at all Total score: 0 Source: Developed by Drs. Milton Zimmerman, Akiko Tapia, Chai Hughes and colleagues, with an educational jennifer from [employer]. Thrive Questionnaire Date Thrive assessed: 10/22/24 I am a: Patient Within the past 12 months, did the food you bought not last and you didn't have the money to get more?: Never true Within the past 12 months, did you worry whether your food would run out before you got money to buy more?: Never true Do you have trouble paying for medicines?: No Do you have trouble getting transportation to medical appointments?: No Do you have trouble paying your heating and electricity bill?: No Do you have trouble taking care of your child, family member or friend?: No Do you have trouble with day-to-day activities such as bathing, preparing meals, shopping, managing finances, etc.?: No Are you currently unemployed and looking for a job?: No Are you interested in more education?: No THRIVE Score: 0 AUDIT C Alcohol Use Questionnaire (AUDIT-C) 1. How often do you have a drink containing alcohol?: Never 3. How often do you have six or more drinks on one occasion?: Never Total Score: 0 TARAN-7 AMB Questionnaire TARAN-7 Date TARAN - 7 assessed: 10/22/24 Feeling nervous, anxious, or on edge: 0 = Not at all Not being able to stop or control worryin = Not at all Worrying too much about different things: 0 = Not at all Trouble relaxin = Not at all Being so restless that it is hard to sit still: 0 = Not at all Becoming easily annoyed or irritable: 0 = Not at all Feeling afraid as if something awful might happen: 0 = Not at all Total TARAN-7 score (0-4 normal; 5-9 mild; 10-14 moderate; 15-21 severe): 0 Source: Developed by Drs. Milton Zimmerman, Akiko Tapia, Chai Hughes and colleagues, with an educational jennifer from [employer]. Physical exam (Primary Care) Vital Signs: Last Vital Signs Temp 98.3 F 10/22/24 10:18 Pulse 61 10/22/24 10:18 BP 128/76 10/22/24 10:18 Pulse Ox 97 10/22/24 10:18 Oxygen Delivery Method Room Air 10/22/24 10:18 BMI result Body Mass Index 39.7 Tobacco/Smoking Status: Tobacco use Status Tobacco use date assessed 10/22/24 10/22/24 10:25 Patient Tobacco Use Status Never used Tobacco 10/22/24 09:23 e-Cigarette/Vaping Use Never Used 10/22/24 10:25 PHQ-9: PHQ-9 Score PHQ-9: Total score 0 10/22/24 10:25 Thrive Assessment: Date of Thrive Assessment Date Thrive assessed 10/22/24 10/22/24 10:25 Coding Level of Care Code New Pt Level 4 (07113) Complex EM visit Add On G2211 Diagnoses SVT (supraventricular tachycardia) I47.1 Abdominal bloating R14.0 Assessment & Plan Assessment & Plan (1) SVT (supraventricular tachycardia): Code(s): I47.1 - Supraventricular tachycardia Category: Medical Plan: Condition is stable. (2) Abdominal bloating: Code(s): R14.0 - Abdominal distension (gaseous) Plan: Condition is stable. Gastrocolic reflex. Use tomotil as needed. Plan History of Present Illness - The patient is a 69-year-old male presenting with gastrointestinal symptoms and health concerns. - Experiences frequent urgent bowel movements with formed stool primarily after breakfast and lunch since undergoing cholecystectomy. - Tried addressing symptoms with dietary changes and nystatin without significant improvement. - Notes a history of yeast allergy, abstains from beer, but consumes bread regularly, contemplating its role in symptoms. - Also reports tachycardia treated previously with metoprolol, with a dosage reduction advised by a finished cigar maker. 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 - Does not smoke. - Avoids alcohol, particularly beer, due to a known yeast allergy. - Engages in camping activities and social outings, impacted by gastrointestinal concerns. Review of Systems - Gastrointestinal: Reports frequent and urgent bowel movements post meals. Denies nocturnal symptoms. - Cardiovascular: Reports tachycardia managed with medication. Physical Exam General: Cooperative and healthy appearing Nutritional Appearance: Well nourished Orientation/consciousness: Patient oriented x3 Limitations: No limitations Head: Normal to inspection General: Appearance normal, both eyes and all related structures Neck: Normal visual inspection Chest: Normal palpation of entire chest wall Respiratory: N ormal respiratory effort Neurology: Patient oriented x3, no halos, no issues with night driving but needs updated glasses. Results Plan 1. Post-Cholecystectomy Diarrhea - Recommended dietary changes to investigate bread and sugar as triggers; use Lomotil PRN. - Addressed gallbladder removal's effect on bile release. 2. Yeast Allergy - Advised discontinuation of nystatin; encouraged dietary observation for allergenic foods. 3. Tachycardia - Managed with adjusted 50 mg metoprolol twice daily; advised monitoring condition. Discussion Notes I discussed with the patient the likely diagnosis of a pronounced gastrocolic reflex causing his symptoms, particularly following the removal of his gallbladder. We talked about the importance of dietary modifications, suggesting a trial reduction of bread and sugar intake to assess any impact on his symptoms. I emphasized that while Lomotil can be used to manage symptoms on days where he plans activities such as camping or trips, it should not be taken regularly. We also discussed stopping nystatin, as it was not helpful for his symptoms, which do not seem related to yeast overgrowth. We reviewed the management of his tachycardia, noting the current prescription adjustments to metoprolol and advising that he continue monitoring with his finished cigar maker's input. Finally, I advised him to keep documents like an advance care directive up-to-date. Patient Instructions - Try reducing bread and sugar intake to see if they trigger your symptoms. - Use Lomotil before planned activities if needed but avoid daily use. - Stop taking nystatin as it hasn't helped your symptoms. - Continue monitoring your heart rate and follow up with your finished cigar maker. - Make sure your advance care directive is completed and current. Medications: Discontinued oxycodone Partial Fill upon patient request. Discontinued Reason: Doctor's Order 5 mg PO BEDTIME 30 days PRN 10 tabs 0RF pain N20.0 - Calculus of kidney nirmatrelvir-ritonavir 300 mg (150 mg x 2)-100 mg (Paxlovid) Discontinued Reason: Doctor's Order take TWO 150 mg tablets of nirmatrelvir with ONE 100 mg tablet of ritonavir twice daily for 5 days PO 30 ea 0RF
[2024-10-22 10:18] VITALS: BP 128/76; PULSE 61; TEMP 36.8; O2SAT 97; BMI 39.7
== END 2024-10-22 11:26 | disposition home or self-care (01) ==
LOC: HO.HMCHD 10:11
PROVIDERS: PCP Internal Medicine; Visit Provider Internal Medicine
DX: I47.10 Supraventricular tachycardia, unspecified (principal); R14.0 Abdominal distension (gaseous)

== ENCOUNTER → 2024-10-22 10:10 | Outpatient (BNVA) | payer MEDICARE, OTHER, SELFPAY | PROVIDERS: PCP Internal Medicine; Visit Provider Internal Medicine | DX: I47.10 Supraventricular tachycardia, unspecified (principal); R14.0 Abdominal distension (gaseous) | CPT/HCPCS: 99202 ==

== ENCOUNTER 2024-10-23 09:39 | Outpatient (REF) | payer MEDICARE, OTHER, SELFPAY ==
--- NOTE | ~2024-10-23 | US_ITS ---
CLINICAL HISTORY: N20.0 - Calculus of kidney US Renal Comparison: None Findings: Right kidney normal size and echotexture, 9.1 cm length. Interpolar cysts measuring 10 mm and 12 mm. Interpolar calculi measuring 9 mm, 8 mm, and 6 mm. Left kidney normal size and echotexture, 15.0 cm length. I 2 interpolar cysts measuring 23 mm each. Interpolar calculus measuring 5 mm. Lower pole calculus measuring 5 mm. No collecting system dilatation of either kidney. Normal color Doppler. IMPRESSION: 1. Nonobstructing bilateral renal calculi. This document has been electronically signed by: Glenny Mckeon MD on 10/23/2024 20:56:58
== END 2024-10-23 09:40 | disposition home or self-care (01) ==
LOC: HO.US 09:39
PROVIDERS: PCP Internal Medicine; Visit Provider Urology
DX: N20.0 Calculus of kidney (principal)
CPT/HCPCS: 76775

== ENCOUNTER → 2024-10-23 09:41 | Outpatient (BNV) | payer MEDICARE, OTHER, SELFPAY | PROVIDERS: PCP Internal Medicine; Visit Provider Radiology Diagnostic Radiology | DX: N20.0 Calculus of kidney (principal) | CPT/HCPCS: 76775 ==

== ENCOUNTER 2024-10-30 11:26 | Outpatient (AMB) | payer MEDICARE, OTHER, SELFPAY ==
--- NOTE | 2024-10-30 11:29 | MHC.OFFVIS ---
Intake Visit Reasons: 1y/US/PSA Intake Note: Patient is Present for 1Y Follow Up/US/PSA Urology Medication: Vitamin B6, Tamsulosin,ALLOPURINOL Antibiotic Allergies:None Blood Thinners:None Dipper And Drier Required: No Allergies Yeast (YEAST) Allergy (Intermediate, Verified 10/30/24 11:32) HIGH DOSES-SEES BLACK SPOTS, HOT FLASHES HPI Comments Details: Steven is a pleasant male. He is a patient of Dr. Hennessy. 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 Investigations - PSA 01/31 < 0.1, 08/01 <0.1, 02/01 <0.1, 05/06 <0.1 Renal cancer Partial nephrectomy 2004 Managed with regular imaging Nephrolithiasis Ongoing Stone analysis 07/03 uric acid 20%, calcium oxalate monohydrate 80% Management allopurinol, vitamin B6 Surveillance imaging - 08/01 renal ultrasound - right side single cyst 1 cm, left side multiple cysts up to 2.5 cm, left side stone 6 mm - 10/01 CT punctate stones no evidence of recurrence of renal cancer - 07/05 renal ultrasound bilateral renal cysts up to 2.5 cm, small 4 mm stone right, small 4 mm stone left - 01/03 CT 4.5 x 6 mm left ureterovesicular junction calculus with mild left hydroureter and hydronephrosis. - 11/05 renal ultrasound bilateral stones right side 3 up to 8 mm versus left Therapeutic plan - allopurinol and vitamin B6 - recommend increased fluid intake [facility] Medical History Morbid obesity On beta priya at home Sinus headache Obstructive sleep apnea (adult) (pediatric) BPH loc w urin obs/LUTS Radiation cystitis Gallstones HTN (hypertension) Renal stones Renal cancer Prostate cancer Hyperlipidemia BOO on CPAP SVT (supraventricular tachycardia) Surgical History History of lithotripsy History of colonoscopy (~08/22/21) History of biopsy of bladder History of prostatectomy History of partial nephrectomy History of laparoscopic cholecystectomy Family History (Updated 10/22/24 @ 10:24 by Dahiana Cornejo MA) Father No problems noted. Mother No problems noted. 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 Cognitive needs: No Hearing needs: No Vision needs: Yes (rx glasses) Review of Systems Const Denies chills and Denies fever(s) Card Reports no additional complaints and Denies syncope Resp Denies cough GI Denies abdominal pain and Denies heartburn Reports as per HPI and Denies change in libido Neuro Denies syncope Psych Denies change in libido Endo Denies change in libido Physical Exam Const General: cooperative, healthy appearing, comfortable and no acute distress Orientation/consciousness: patient oriented x3 HEENT Face and sinus: Yes normal facial exam Mouth: moist mucous membranes Neck Neck: Yes normal visual inspection, Yes full ROM and Yes trachea midline Chest Chest palpation & inspection: normal inspection of the chest Resp Effort & Inspection: normal respiratory effort, able to speak in complete sentences and no respiratory distress GI Inspection: Yes normal to inspection Back/Spine/Pelvis Cervical Spine: normal cervical lordosis Thoracic/Lumbar Spine: thoracic and lumbar spine normal to inspection Skin General skin exam: no rashes or lesions noted Neuro General: patient oriented x3, gait normal, tone normal and moves all extremities Extrem General: Yes normal to inspection and Yes capillary refill normal Assessment & Plan Assessment & Plan (1) Prostate cancer: Comment: Radical prostatectomy with rising PSA and radiation therapy 2009 Code(s): C61 - Malignant neoplasm of prostate Category: Medical (2) Nephrolithiasis: Comment: Uric acid stones Code(s): N20.0 - Calculus of kidney Category: Medical (3) Renal cancer: Code(s): C64.9 - Malignant neoplasm of unspecified kidney, except renal pelvis Category: Medical Plan Repeat imaging six-month Orders: Orders XR KUB 6 Months N20.0 - Calculus of kidney Medications: Refilled allopurinol 100 mg PO DAILY 90 tabs 3RF 90 days N20.0 - Calculus of kidney pyridoxine (vitamin B6) 50 mg PO DAILY 90 tabs 3RF 90 days N20.0 - Calculus of kidney Patient Instructions: This note is constructed using voice recognition software. While every effort has been made to ensure accuracy chain saw operator errors may have been included. Imaging studies, laboratory and physical exam results were discussed and reviewed in detail. No major barriers to patient understanding were identified. An opportunity to ask questions regarding the treatment plan was provided. All questions were answered. The patient expressed understanding and agreement with the above treatment plan. The patient is aware they should contact our office by phone for worsening of their current condition or the appearance of new urologic symptoms. Compliance is encouraged with any medications and followup testing that is ordered. It is a privilege to participate in the urologic care of your patient. If you have any questions or concerns regarding treatment for the above conditions, or other urologic issues, please do not hesitate to contact me. The office telephone contact is [phone]. Sincerely, Dr Yehuda Crump MD, [facility] - Urology Compassionate Specialist Care for the Genitourinary System Coding Level of Care Code Est Pt Level 4 (24388) Complex EM visit Add On G2211 Diagnoses Prostate cancer C61 Nephrolithiasis N20.0 Renal cancer C64.9
--- OUTSIDE RECORDS SUMMARY | 2024-10-30 12:58 | XMS_ITS | Data Portability ---
Author Organization [facility] Zahraa Randall [place]ONE [place] Address [address] [place] [address] Care Team Providers Care Human Services Program Specialist Name Role Phone NITZA DANIELS Primary Care Provider NITZA DANIELS Referring Provider [phone] Assessment Encounter Date Assessment Date Assessment LastModified [...] answered, he is in agreement with plan. [email or web address] Not available 02/03/2024 21:25:23 02/14/2024 02/14/2024 The [...] 3 or more view 024 01/23/20 24 [email or web address] [facility], [address], [address], [place], [address], 4 11:45:24 XR, wrist, 3 or more view 024 11/22/19 24 [email or web address] [facility], [address], [address], [place], [address], 4 16:48:08 Medication Orders None record ed. Patient TargetsNo targets recorded. Patient Instructions Encounter Date Encounter Id Patient Instructions Last Modified By Organization Details Last Modified Time 11/22/2023 [id number] views of the left wrist were ordered and reviewed today, this demonstrates a triquetral impaction fracture at the dorsal triquetrum. No other acute findings noted. There is anatomic alignment of the wrist and carpal bones. Not available 11/22/2023 16:11:46 Reason for Referral None Reported. Problems Name Problem SNOMED Code Status Onset Date Resolution Date Notes Provider Name and Address Organization Details Recorded Time Closed fracture of triquetral bone of wrist 83345411 Active 2023 Liliana merchant MD [address] [facility],[address], [place], [address] , [place] [facility] 4 16:13:44 Sprain of left wrist 8255496447069 9104 Active 2023 Liliana merchant MD [address] [facility] [address], [place], [address], [place] [facility], [facility] 4 16:13:54 Problem Notes None recorded. Procedures Surgical History Date Name Laterality Status Provider Name and Address Organization Details Recorded Time partial nephrectomy completed Cat Narus [facility] [place] [facility], [facility] 11/22/2023 16:16:52 Gallbladder Surgery completed Cat Narus [facility] [place], [facility] 11/22/2023 16:17:40 prostatectomy completed Cat Narus [facility], [facility] 11/22/2023 16:17:52 Imaging Results None recorded. [...] mg-100 mg tablets in a dose pack (Moderate Renal Dose) TAKE 2 TABLETS BY MOUTH TWICE A DAY 02/13 completed Not Available Not Available Not Available Vitals Date Recorded Body height Body mass index (BMI) Body weight Provider Name and Address Organization Details Last Updated DateTime 11/22/2023 179.07 cm 37.5 kg/m2 905627.[address] [place] [facility] [place], [facility] 11/22/2023 16:13:48 Date Recorded Body height Provider Name an d Address Organization Details Last Updated DateTime 01/23/2024 179.07 cm Eveline Casperes [facility] 01/23/2024 08:50:11 Date Recorded Body height Body mass index (BMI) Body weight Provider Name and Address Organization Details Last Updated DateTime 02/14/2024 179.07 cm 37.5 kg/m2 949984.98 g Kayce Jil [facility] 02/14/2024 08:45:44 Social History Question Answer Notes LastModified by [employer] Details LastModified Time Tobacco Smoking Status Never Smoker Eveline Kellogg jackson [facility], [facility] 01/23/2024 08:50:26 Are You Blind Or Do You Have Difficulty Seeing? No Information not available 11/22/2023 Are You Deaf Or Do You Have Serious Difficulty Hearing? Yes Mild Information not available 11/22/2023 Sex: Unknown Functional Status Question Answer Note LastModified by [employer] Details LastModified Time Do you use any illicit or recreational drugs? No Information not available 01/23/2024 Do you or have you ever used any other forms of tobacco or nicotine? No Information not available 01/23/2024 What is your level of alcohol consumption? None Information not available 01/23/2024 Are you able to care for yourself? Yes Information not available 11/22/2023 Mental Status None recorded. Family [...] Diagnosis/Indication Diagnosis SNOMED-CT Code Diagnosis ICD10 Code Diagnosis Note [id number] MD GLENN Wilkinsonsal [place] [address] [facility] [address] [place] [address] 11/22/2023 15:08:31 11/22/2023 15:59:19 Pain of left wrist [id number] 29275 M25.532 Additional diagnosis detail: Left wrist pain Closed fra cture of triquetral bone of wrist 07255625 S62.115A Additional diagnosis detail: Closed nondisplac ed fracture of triquetrum of left wrist, initial encounter Sprain of left wrist 767 6354453 6814462 S63.502A Additional diagnosis detail: Sprain of left wrist, initial encounter 83883 ILANA JACKSON [place] [address] [facility] [address] [place] [address] 01/23/2024 08:21:08 01/23/2024 09:30:00 Pain of left wrist 4975880231 82998 M25.532 Closed fra cture of triquetral bone of wrist 71277339 S62.115A Additional diagnosis detail: Closed nondisplac ed fracture of triquetrum of left wrist, initial encounter Sprain of left wrist 886 9147542 2742415 S63.502A Additional diagnosis detail: Sprain of left wrist, initial encounter 74272 MD GLENN Wilkinson [address] [facility] [address] [place] [address] 02/14/2024 08:44:30 02/14/2024 09:23:13 Closed fracture of triquetral bone of wrist 76232676 S62.115A Additional diagnosis detail: Closed nondisplac ed fracture of triquetrum of left wrist, initial encounter Health Concerns Section Related Observation LastModified by Organization Detai ls LastModified Time None Recorded Concern Status LastModified by Organization Details LastModified Time None Recorded Advance Directives Directive None Recorded Payers Insurance Date Sequence Insurance Name Policy Number Policy Mcarthur Covered Member ID Mcarthur Member ID Guarantor Name 02/12/2024 1 [place] [employer] Steven Logan [id number] Steven Logan 02/12/2024 2 [employer] - PLAN 1 (MEDICARE SUPPLEMENT) [id number] 1 Steven Logan [id number] Steven Logan Notes Date Note Type Note Provider Name and Address Organization Details Recorded Time 11/22/2023 text/html This is a 68-year-old ohpaz-cqeb-zchebp nt male who presents with a left wrist injury when he fell on 11/12/2023. He is vacationing in [place] and sustained a fall onto his right [...] tingling. He had been icing and taking saay-udg-kxrgkyy medication for pain control. He notes pain when he is out of the brace and tries to move the wrist. Denies prior history of injury to the wrist before. Cat paz, [place] [facility] [place] 11/22/2023 16:18:40 01/23/2024 text/html Patient is [...] ulnar deviation. 11/22/2023 LS:This is a 68-year-old mocwu-lqzx-jeebgu nt male who presents with a left wrist injury when he fell on 11/12/2023. He is vacationing in [place] and sustained a fall onto his right [...] tingling. He had been icing and taking saez-rkm-cqztbnz medication for pain control. He notes pain when he is out of the brace and tries to move the wrist. Denies prior history of injury to the wrist before. CHRISTIAN ELISE PA-C [address], [place], [address], [place] [facility] 02/03/2024 21:26:51 02/14/2024 text/html He presents [...] movements. Sirisha paz, [place] [facility] [place] 02/14/2024 09:05:04
== END 2024-10-30 11:58 | disposition home or self-care (01) ==
LOC: HO.HUSH 11:26
PROVIDERS: PCP Internal Medicine; Visit Provider Urology
DX: C61 Malignant neoplasm of prostate (principal); N20.0 Calculus of kidney; C64.9 Malignant neoplasm of unspecified kidney, except renal pelvis
CPT/HCPCS: 99214; G2211

== ENCOUNTER → 2024-10-30 11:26 | Outpatient (BNVA) | payer MEDICARE, OTHER, SELFPAY | PROVIDERS: PCP Internal Medicine; Visit Provider Urology | DX: C61 Malignant neoplasm of prostate (principal); C64.9 Malignant neoplasm of unspecified kidney, except renal pelvis; N20.0 Calculus of kidney | CPT/HCPCS: 99212 ==

== ENCOUNTER 2025-01-07 09:14 | Outpatient (AMB) | payer MEDICARE, OTHER, SELFPAY ==
--- OUTSIDE RECORDS SUMMARY | 2025-01-07 09:42 | XMS_ITS ---
Author Name [facility] Organization Unknown History of Medication Use Medication Directions Dispensed Refills Start Date End Date Stat azithromycin 250 mg tablet TAKE 1 TABLET BY MOUTH EVERY DAY 02/14/2024 active oxycodone 5 mg capsule TAKE 1 TABLET(S) BY MOUTH EVERY 4-6 HOURS NEEDED 02/14/2024 active allopurinol 100 mg tablet TAKE 1 TABLET BY MOUTH EVERY DAY active codeine 10 mg-guaifenesin 100 mg/5 mL oral liquid TAKE 1 TEASPOONFUL BY MOUTH EVERY 4-6 HOURS NEEDED active dicyclomine 10 mg capsule TAKE 1-2 CAPSULES BY MOUTH 30-60 MINUTES BEFORE EACH MEAL FOR ABDOMINAL CRAMPS/DIARRHEA active dicyclomine 10 mg capsule TAKE 1-2 CAPSULE(S) BY MOUTH 30-60 MINUTES BEFORE EACH MEAL 90 active diltiazem CD 120 mg capsule,extended release 24 hr TAKE 1 CAPSULE BY MOUTH EVERY DAY active ibuprofen 600 mg tablet TAKE 1 TAB ORALLY 3 TIMES A DAY NEEDED FOR FEVER OR PAIN active metoprolol tartrate 50 mg tablet TAKE 1 &1/2 TABLET BY MOUTH TWICE A DAY active prednisone 20 mg tablet TAKE 1 TABLET BY MOUTH EVERY DAY FOR 3 DAYS active simvastatin 20 mg tablet TAKE 1 TABLET BY MOUTH EVERY DAY active Problems Problem Status Onset Date Problem Type Date of Resoluti on Source Sprain of left wrist active 2023-11-22 ProblemAct ENS_AONECT Closed fracture of triquetral bone of wrist active 2023-11-22 ProblemAct ENS _AONECT Encounters Encounter Type Encounter Reason Primary Diagnosis Location Date Ambulatory [facility] 03/08/2024 [facility] 02/04/2024 [facility] 01/23/2024 [facility] 12/13/2023 [facility] 11/23/2023 [facility] 11/22/2023 [facility] 11/22/2023 [facility] 11/22/2023 [facility] 11/22/2023 [facility] 11/13/2023
--- OUTSIDE RECORDS SUMMARY | 2025-01-07 09:42 | XMS_ITS | Patient Health Record ---
Author Organization [facility] Address [address] [place] [address] Care Team Providers Care Linker Up Name Role Phone Minoo (RETIRED) Ethan KAUFFMAN Primary Care Provide r Milton Gipson Unavailable [phone] Allergies Allergen (clinical drug ingredient) Drug/Non Drug Allergy documented on EMR Reaction Allergy Type Onset Date Status yeast in high concentrations (uncoded) Unknown Allergy Active certain enviromental/pollen and trees (uncoded) Unknown Allergy Active Reason For Referral No Information Medications Medication SIG (Take, Route, Frequency, Duration) Notes [...] day Active Dicyclomine HCl 10 MG TAKE 1 TO 2 CAPSUL ES BY MOUTH 30-60 MINUTES BEFORE EACH MEAL FOR ABDOMINAL CRAMPS/DIARRHEA for 90 Active Immunizations Vaccine Route Administration Date Status Comme nts Influenza Unknown 01/12/2018 Administered Influenza Unknown 01/12/2021 Administered Problems Problem Type SNOMED Code ICD Code Onset Dates Problem Status W/U Status Risk Notes Problem [id number] Encounter for screening for malignant neoplasm of colon (Z12.11) Active confirmed Problem 283227073 Abdominal bloating (R14.0) Active confirmed Problem Screening for malignant neoplasm of rectum (187267615) Encounter for screening for malignant neoplasm of rectum (Z12.12) Active confirmed Problem 88688846 Preprocedural examination (Z01.818) Active confirmed Problem 577913645 Hx of adenomatou s colonic polyps (Z86.010) Active confirmed Problem 03904461 Other irritable bowel syndrome (K58.8) Active confirmed Problem 17229217 Abdominal gas pain (R14.1) Active confirmed Problem 381469104 Change in bowel movement (R19.8) Active confirmed Plan Of Treatment Future Test Test Name Order Date COLONOSCOPY 09/29/2015 COLONOSCOPY 05/03/2021 Insurance Providers Payer Name Payer Address Payer Phone Subscriber Number Group Number Insured Name Patient Relationship to Insured Coverage Start Date Coverage End Date MEDICARE OF [place] [address] [place] [address] [phone] [id number] BLANCHE DOWD Self - patient is the insured [facility] [address] [place] [address] [id number] BLANCHE DOWD Self - patient is the insured Medical (General) History Medical History History ICD Code Colonosocpy 05-22-2005--hyperplastic polyp Tachycardia --on metoprolol Denies [place],DM,CVA,Lung disease,renal dise ase Right Renal cell cancer---as below Prostate cancer--as below Hyperlipidemia Sleep apnea--uses CPAP Kidney stones-ESWL Colonoscopy 12/2015---1 small tubular adenoma removed, XRT telangiectasias, diverticulosis, internal hemorrhoids allergies- gets injections [facility], had XR T in 2014 Lap CCY 09/2015-Dr. Estrella Right renal cancer--partial nephrectomy in 2000 at [facility]
== END 2025-01-07 09:16 | disposition home or self-care (01) ==
LOC: HO.HMGAL 09:14
PROVIDERS: PCP Internal Medicine; Visit Provider Registered Nurse Emergency
DX: J30.89 Other allergic rhinitis (principal)
CPT/HCPCS: 95117; 95165

== ENCOUNTER 2025-03-11 11:31 | Outpatient (AMB) | payer MEDICARE, OTHER, SELFPAY ==
--- OUTSIDE RECORDS SUMMARY | 2025-03-11 14:55 | XMS_ITS | Patient Health Record ---
Author Organization [facility] Address [address] [place] [address] Care Team Providers Care Snuff Blender Name Role Phone Minoo (RETIRED) Ethan KAUFFMAN Primary Care Provide r Milton Gipson Unavailable [phone] Allergies Allergen (clinical drug ingredient) Drug/Non Drug [...] once or Twice a day for loose stools; Duration: 90 Not-Taking Allopurinol 100 MG Oral; Duration: 90 Active Tamsulosin HCl 0.4 MG Oral; Duration: 90 Active dilTIAZem HCl ER Coated Beads 120 MG Oral; Duration: 90 Active Vitamin B-6 100 MG Oral; Duration: 90 Active Ibuprofen 200 MG as directed as directed as directed Active Metoprolol Succinate 50 MG 1 capsule Ora lly twice a day Active Simvastatin 20 MG 1 tablet in the evening Orally Once a day Active Dicyclomine HCl 10 MG TAKE 1 TO 2 CAPSUL ES BY MOUTH 30-60 MINUTES BEFORE EACH MEAL FOR ABDOMINAL CRAMPS/DIARRHEA; Duration: 90 Active Immunizations Vaccine Route Administration Date Status Comme nts Influenza Unknown 01/12/2018 Administered Influenza Unknown 01/12/2021 Administered Problems Problem Type SNOMED Code ICD Code Onset Dates Problem Status W/U Status Risk Notes Problem Screening for malignant neoplasm of colon (101384659) Encounter for screening for malignant neoplasm of colon (Z12.11) Active confirmed Problem Abdominal bloating (196997949) Abdominal bloating (R14.0) Active confirmed Problem Screening for malignant neoplasm of rectum (082655370) Encounter for screening for malignant neoplasm of rectum (Z12.12) Active confirmed Problem Preprocedural examination (732125707533299) Preprocedural examination (Z01.818) Active confirmed Problem History of adenomatous polyp of colon (819387744) Hx of adenomatous colonic polyps (Z86.010) Active confirmed Problem Irritable bowel syndrome (50111113) Other irritable bowel syndrome (K58.8) Active confirmed Problem Flatulence, eructation and gas pain (268362475) Abdominal gas pain (R14.1) Active confirmed Problem Altered bowel function (99450050) Change in bowel movement (R19.8) Active confirmed Plan Of Treatment Future Test Test Name Order Date COLONOSCOPY 09/29/2015 COLONOSCOPY 05/03/2021 Insurance Providers Payer Name Payer Address Payer Phone Subscriber Number Group Number Insured Name Patient Relationship to Insured Coverage Start Date Coverage End Date MEDICARE OF [place] [address] [place] [phone] [id number] BLANCHE DOWD Self - patient is the insured [facility] [address] [place] [address] [phone] [id number] BLANCHE DOWD Self - patient is the insured Medical (General) History Medical History History ICD Code Colonosocpy 05-22-2005--hyperplastic polyp Tachycardia --on metoprolol Denies [place],DM,CVA,Lung disease,renal dise ase Right Renal cell cancer---as below Prostate cancer--as below Hyperlipidemia Sleep apnea--uses CPAP Kidney stones-ESWL Colonoscopy 12/2015---1 small tubular adenoma removed, XRT telangiectasias, diverticulosis, internal hemorrhoids allergies- gets injections [facility], had XR T in 2014 Lap CCY 09/2015-Dr. Estrella Right renal cancer--partial nephrectomy in 2000 at [facility]
== END 2025-03-11 11:32 | disposition home or self-care (01) ==
LOC: HO.HMGAL 11:31
PROVIDERS: PCP Internal Medicine; Visit Provider Registered Nurse Emergency
DX: J30.89 Other allergic rhinitis (principal)
CPT/HCPCS: 95117; 95165

== ENCOUNTER 2025-04-07 08:23 | Outpatient (REF) | payer MEDICARE, OTHER, SELFPAY ==
--- NOTE | ~2025-04-07 | XR_ITS ---
EXAMINATION: XR ABDOMEN KUB CLINICAL INDICATION: N20.0 - Calculus of kidney COMPARISON: None available. TECHNIQUE: AP view of the abdomen. FINDINGS: Bowel gas pattern is normal/nonspecific. There is no focally dilated loop. There are small calcifications overlying both renal shadows, the largest on the right measuring 5 mm, and the largest on the left measuring 6 mm. Findings are suspicious for bilateral nephrolithiasis. There are numerous granulomata overlying the region of the spleen. There are no abnormal calcifications in the pelvis. There are no suspicious bony abnormalities. There are degenerative spinal changes. Lung bases are clear. XR/XR KUB IMPRESSION: 1. Small calcifications overlying both renal shadows as discussed, suspicious for bilateral nephrolithiasis. 2. Splenic granulomata. Electronically signed by: Elmo Kennedy MD 04/07/2025 09:16 AM RON SEN
--- OUTSIDE RECORDS SUMMARY | 2025-04-07 08:40 | XMS_ITS | Data Portability ---
Author Organization [facility] Zahraa Randall [place] Address [address] [place] [address] Care Team Providers Care Recyclable Materials Collector Name Role Phone NITZA DANIELS Primary Care Provider NITZA DANIELS Referring Provider [phone] Assessment Encounter Date Assessment Date Assessment LastModified [...] answered, he is in agreement with plan. [email or web address] Not available 02/03/2024 21:25:23 02/14/2024 02/14/2024 The [...] 3 or more view 024 01/23/20 24 [email or web address] [facility], [address], [address], [place], [address], 4 11:45:24 XR, wrist, 3 or more view 024 11/22/19 24 [email or web address] [facility], [address], [address], [place], [address], 4 16:48:08 Medication Orders None record ed. Patient TargetsNo targets recorded. Patient Instructions Encounter Date Encounter Id Patient Instructions Last Modified By Organization Details Last Modified Time 11/22/2023 [id number] views of the left wrist were [...] Closed fracture of triquetral bone of wrist 74384541 Active 2023 Liliana merchant MD [address], [place], [address], [place] [facility] [facility] 4 16:13:44 Sprain of left wrist 8806432411950 9104 Active 2023 Liliana merchant MD [address], [place], [address], [place] [facility] 4 16:13:54 Problem Notes None recorded. Procedures Surgical History Date Name Laterality Status Provider Name and Address Organization Details Recorded Time partial nephrectomy completed Cat Nar [facility] - [facility] [place], [facility] 11/22/2023 16:16:52 Gallbladder Surgery completed Cat Nar CT - [facility], [facility] 11/22/2023 16:17:40 prostatectomy completed Cat More [facility] - [facility] [facility], [facility] 11/22/2023 16:17:52 Imaging Results None recorded. [...] Updated DateTime 11/22/2023 179.07 cm 37.5 kg/m2 719965.98 g Cat Argenis [place] [facility] 11/22/2023 16:13:48 Date Recorded Body height Provider Name an d Address Organization Details Last Updated DateTime 01/23/2024 179.07 cm Eveline Kellogg [facility], P 01/23/2024 08:50:11 Date Recorded Body height Body mass index (BMI) Body weight Provider Name and Address Organization Details Last Updated DateTime 02/14/2024 179.07 cm 37.5 kg/m2 760461.98 g Kayce Jil [facility], [facility] 02/14/2024 08:45:44 Social History Question Answer Notes LastModified by [employer] Details LastModified Time Tobacco Smoking Status Never Smoker Eveline Kellogg jackson [facility], P 01/23/2024 08:50:26 Are You Blind Or Do You Have Difficulty Seeing? No Information not available 11/22/2023 Are You Deaf Or Do You Have Serious Difficulty Hearing? Yes Mild Information not available 11/22/2023 Sex: Unknown Functional Status Question Answer Note LastModified by Organizat ion Details LastModified Time Do you use any illicit or recreational drugs? No Information not available 01/23/2024 Do you or have you ever used any other forms of tobacco or nicotine? No Information not available 01/23/2024 What is your level of alcohol consumption? None Information not available 01/23/2024 Are you able to care for yourself independently? Yes Information not available 11/22/2023 Mental Status [...] Diagnosis SNOMED-CT Code Diagnosis ICD10 Code Diagnosis IMO Codes Diagnosis Note 67102 MD GLENN Wilkinson [address] [facility] [address] [place] [address] 11/22/2023 15:08:31 11/22/2023 15:59:19 Pain of left wrist 3382804388 34799 M25.532 Additional diagnosis detail: Left wrist pain Closed fra cture of triquetral bone of wrist 70241264 S62.115A Additional diagnosis detail: Closed nondisplac ed fracture of triquetrum of left wrist, initial encounter Sprain of left wrist 250 0179113 9191166 S63.502A Additional diagnosis detail: Sprain of left wrist, initial encounter 46822 ILANA JACKSON [place] [address] [facility] [address] [place] [address] 01/23/2024 08:21:08 01/23/2024 09:30:00 Pain of left wrist 7254216808 50155 M25.532 731202 Closed fra cture of triquetral bone of wrist 52994549 S62.115A Additional diagnosis detail: Closed nondisplac ed fracture of triquetrum of left wrist, initial encounter Sprain of left wrist 170 0116774 4541577 S63.502A Additional diagnosis detail: Sprain of left wrist, initial encounter 86652 MD GLENN Wilkinson [address] [facility] [address] [place] [address] 02/14/2024 08:44:30 02/14/2024 09:23:13 Closed fracture of triquetral bone of wrist 72063918 S62.115A Additional diagnosis detail: Closed nondisplac ed fracture of triquetrum of left wrist, initial encounter Health Concerns Section Related Observation LastModified by Organization Britany vyas LastModified Time None Recorded Concern Status LastModified by Organization Details LastModified Time None Recorded Advance Directives Directive None Recorded Payers Insurance Date Sequence Insurance Name Policy Number Policy Mcarthur Covered Member ID Mcarthur Member ID Guarantor Name 02/12/2024 1 [place] NATIONAL [employer] Steven Logan [id number] Steven Logan 02/12/2024 [facility] (MEDICARE SUPPLEMENT) [id number] Steven Logan [id number] Steven Logan Notes Date Note Type Note Provider Name and Address Organization Details Recorded Time 11/22/2023 text/html ROS as noted in the HPI This is a 68-year-old djsef-lysv-cphwzs nt male who presents with a left wrist injury when he fell on 11/12/2023. He is vacationing in [place] and sustained a fall onto his right [...] tingling. He had been icing and taking aqmi-xfv-vimkfvp medication for pain control. He notes pain when he is out of the brace and tries to move the wrist. Denies prior history of injury to the wrist before. Cat paz, [place] [facility] [place] 11/22/2023 16:18:40 01/23/2024 text/html ROS as noted in the HPI Patient is a 68-year-old male who presents [...] ulnar deviation. 11/22/2023 LS:This is a 68-year-old xzwzj-kcuw-bdgvko nt male who presents with a left wrist injury when he fell on 11/12/2023. He is vacationing in [place] and sustained a fall onto his right [...] tingling. He had been icing and taking zjqt-uwh-snlnywy medication for pain control. He notes pain when he is out of the brace and tries to move the wrist. Denies prior history of injury to the wrist before. CHRISTIAN ELISE PA-C [address], [place], [address], [place] [facility] [facility] 02/03/2024 21:26:51 02/14/2024 text/html ROS as noted in the HPI He presents for follow-up of his left [...] movements. Sirisha paz, [place] [facility] [place] [facility] 02/14/2024 09:05:04
[2025-04-07 10:39] LABS: Prostate Specific Antigen < 0.10 ng/mL (<0.05-4.0)
== END 2025-04-07 08:24 | disposition home or self-care (01) ==
LOC: HO.LAB 08:23
PROVIDERS: PCP Student in an Organized Health Care Education/Training Program; Visit Provider Urology
DX: C61 Malignant neoplasm of prostate (principal); N20.0 Calculus of kidney; Z12.5 Encounter for screening for malignant neoplasm of prostate
CPT/HCPCS: 36415; 74018; 84153

== ENCOUNTER → 2025-04-07 08:52 | Outpatient (BNV) | payer MEDICARE, OTHER, SELFPAY | PROVIDERS: PCP Student in an Organized Health Care Education/Training Program; Visit Provider Radiology Diagnostic Radiology | DX: N20.0 Calculus of kidney (principal); D73.89 Other diseases of spleen | CPT/HCPCS: 74018 ==

== ENCOUNTER 2025-04-22 10:44 | Outpatient (AMB) | payer MEDICARE, OTHER, SELFPAY | END 2025-04-22 10:44 | disposition home or self-care (01) | LOC: HO.HMGAL 10:44 | PROVIDERS: PCP Student in an Organized Health Care Education/Training Program; Visit Provider Registered Nurse Emergency | DX: J30.89 Other allergic rhinitis (principal) | CPT/HCPCS: 95117; 95165 ==

== ENCOUNTER 2025-04-29 09:05 | Outpatient (AMB) | payer MEDICARE, OTHER, SELFPAY ==
--- NOTE | 2025-04-29 09:11 | A.OFFPC_ITS ---
Vital Signs 04/29/25 09:14 Height 5 ft 10 in Weight 277 lb BMI 39.7 BP 114/70 Blood Pressure Location Lt brachial Position Sitting Respiration 16 Pulse 76 Pulse Source Pulse Oximeter Temp 97.1 F Temp Source Temporal Artery Scan Pulse Oximetry (%) 95 Oxygen Delivery Method Room Air Intake Visit Reasons: 6 Month F/U from Dr Dueñas Clinical Research Manager Required: No Accompanied by: Spouse Allergies Yeast (YEAST) Allergy (Intermediate, Verified 04/29/25 09:20) HIGH DOSES-SEES BLACK SPOTS, HOT FLASHES Medication List - Last Reconciled 04/29/25 by Darron Nicholson MD allopurinol 100 mg PO DAILY 90 days dicyclomine 10 mg PO Q6H PRN diltiazem HCl CD 120 mg PO DAILY metoprolol tartrate 50 mg PO BID naproxen 500 mg PO BID PRN 14 days pyridoxine (vitamin B6) 50 mg PO DAILY 90 days simvastatin 20 mg PO DAILY 90 days tamsulosin 0.4 mg PO BEDTIME 90 days Tobacco use date assessed: 10/22/24 Fall risk assessment: No Falls in past year Last assessed Fall Risk: 04/29/25 Dental Screening Dental Screen Date: 10/22/24 HPI HPI Comments History of Present Illness Details History of Present Illness The patient is a 69 year old male presenting for follow-up, medication management, and to discuss concerns including a bump on his nose, a recurring nasal scab, urinary symptoms, and gastrointestinal issues. He reports a bump on his nose that has been present for a while, which bled on one occasion after [place] himself on a cruise. He notes that the bump seems to change but is not getting bigger. He also has a recurring scab inside his nose that he associates with dryness. Regarding his urological health, the patient reports a urinary stream that is not very strong. He believes this may be related to a narrowing of a urinary tube following radiation therapy in the past. The patient has a history of a heightened gastrocolic reflex, which causes him to have an immediate bowel movement after eating, particularly in the morning or at lunch. To manage this, he avoids eating before long drives, takes a half tablet of Lomotil when he anticipates a problem, and also takes a probiotic, which seems to have helped. The patient has several chronic conditions, including gout, supraventricular tachycardia (SVT), and hyperlipidemia, which are managed with medication. He also has obstructive sleep apnea and uses a CPAP machine for about five hours a night. His last comprehensive blood work was in April of the previous year, although he recently had a normal PSA level checked. Medical History: - Gout - Supraventricular tachycardia (SVT) - Hyperlipidemia - Benign Prostatic Hyperplasia (BPH) - Post-prandial diarrhea secondary to he ightened gastrocolic reflex - Obstructive sleep apnea, on CPAP - History of radiation therapy - History of cerumen impaction Medications: - Allopurinol 100 mg once a day for gout - Diltiazem 120 mg for supraventricular tachycardia (SVT) - Metoprolol tartrate 50 mg twice a day for SVT - Simvastatin 20 mg for cholesterol - Tamsulosin 0.4 mg at night for prostat e - Dicyclomine as needed for stomach issu es - Lomotil, one half tablet as needed for diarrhea - Probiotic Family History: - Father was a general practitioner. Diagnostic Results: - Labs: Recent PSA level was normal. Social History - The patient uses a CPAP machine for ap proximately 5 hours per night. [facility] Medical History (Updated 04/29/25 @ 10:20 by Darron Nicholson MD) Mixed hyperlipidemia Gout IBS (irritable bowel syndrome) Nasal dryness Lesion of skin of nose Morbid obesity On beta priya at home Sinus headache Obstructive sleep apnea (adult) (pediatric) BPH loc w urin obs/LUTS Radiation cystitis Gallstones HTN (hypertension) Renal stones Renal cancer Prostate cancer Hyperlipidemia BOO on CPAP SVT (supraventricular tachycardia) Surgical History History of lithotripsy History of colonoscopy (~08/22/21) History of biopsy of bladder History of prostatectomy History of partial nephrectomy History of laparoscopic cholecystectomy Family History (Updated 10/22/24 @ 10:24 by Dahiana Cornejo MA) Father No problems noted. Mother No problems noted. 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 How often do you have a drink containing alcohol?: Never 3. How often do you have six or more drinks on one occasion?: Never Total Score: 0 TARAN-7 AMB Questionnaire TARAN-7 Date TARAN - 7 assessed: 10/22/24 Source: Developed by Drs. Milton Zimmerman, Akiko Tapia, Chai Hughes and colleagues, with an educational jennifer from [employer]. Review of Systems Narrative Review of Systems - General: Denies chest pain, shortness of breath, and headaches. - Skin/HEENT: Reports a longstanding bump on his nose that bled once in the past. Reports a recurrent scab inside his nose. - Gastrointestinal: Reports post-prandial urgency and diarrhea. Denies constipation. - Genitourinary: Reports a weak urinary stream. All systems reviewed & are unremarkable except as reviewed in HPI and above Physical exam (Primary Care) Vital Signs: Last Vital Signs Temp 97.1 F 04/29/25 09:14 Pulse 76 04/29/25 09:14 Resp 16 04/29/25 09:14 BP 114/70 04/29/25 09:14 Pulse Ox 95 04/29/25 09:14 Oxygen Delivery Method Room Air 04/29/25 09:14 Care Plan Goal for BP management: Within Goal BMI result Body Mass Index 39.7 Tobacco/Smoking Status: Tobacco use Status Tobacco use date assessed 10/22/24 04/29/25 09:12 Patient Tobacco Use Status Never used Tobacco 04/29/25 09:12 e-Cigarette/Vaping Use Never Used 04/29/25 09:12 Thrive Assessment: Date of Thrive Assessment Date Thrive assessed 10/22/24 04/29/25 09:12 Narrative Physical Exam General: +Alert and oriented, Well nourished, No acute distress. Eye: Pupils are equal, round and reactive to light, Intact accommodation, Extraocular movements are intact, Normal conjunctiva, Vision unchanged. HENT: Normocephalic, Atraumatic, Tympanic membranes are clear, Normal hearing, Oral mucosa is moist, No pharyngeal erythema, Ear canals patent. Respiratory: Lungs CTA bilaterally, No wheeze, Respirations are non-labored. Cardiovascular: Regular rate, Regular rhythm, S1 auscultated, S2 auscultated, No murmur, Good pulses equal in all extremities, Normal peripheral perfusion, No edema. Gastrointestinal: Soft, Non-tender, Non-distended, Normal bowel sounds, No organomegaly. Musculoskeletal: Normal range of motion, Normal strength, No tenderness, No swelling, No deformity, Normal gait. Integumentary: Warm, Dry, Edmund, Intact, Bump on nose with recurrent scab formation. Neurologic: Alert, Oriented, Normal sensory, Normal motor function, No focal defects, Cranial Nerves II-XII are grossly intact, Normal deep tendon reflexes. Psychiatric: Cooperative, Appropriate mood & affect, Normal judgment. Coding Level of Care Code Est Pt Level 4 (22420) Add On Problem Visit Only Diagnoses Lesion of skin of nose L98.9 Nasal dryness J34.89 BPH loc w urin obs/LUTS N40.1 Irritable bowel syndrome with both constipation and diarrhea K58.2 Irritable bowel syndrome type: with both diarrhea and constipation SVT (supraventricular tachycardia) I47.1 Chronic gout without tophus, unspecified cause, unspecified site M1A.[id number] Gout site: unspecified site Gout etiology: unspecified cause Chronicity: chronic Presence of tophus: without tophus Mixed hyperlipidemia E78.2 BOO on CPAP G47.33; Z99.89 Assessment & Plan Assessment & Plan (1) Lesion of skin of nose: Comment: - The patient reports a long-standing, changing bump on his nose. - The plan is to monitor the lesion. - If it increases in size, a referral to dermatology will be placed for evaluation. Code(s): L98.9 - Disorder of the skin and subcutaneous tissue, unspecified Category: Medical (2) Nasal dryness: Comment: - The patient has a recurrent scab inside his nose, likely due to dryness. - Recommended using a humidifier at home, particularly in the bedroom, to increase ambient moisture. Code(s): J34.89 - Other specified disorders of nose and nasal sinuses Category: Medical (3) BPH loc w urin obs/LUTS: Comment: - The patient reports a weak urinary stream. - The dose of tamsulosin will be increased from 0.4 mg to 0.8 mg at night to assess for symptomatic improvement. Code(s): N40.1 - Benign prostatic hyperplasia with lower urinary tract symptoms Category: Medical (4) IBS (irritable bowel syndrome): Comment: - This is attributed to a heightened gastrocolic reflex. - The patient is managing this well with dietary modifications, probiotics, and as-needed Lomotil. - No changes to the current plan are indicated. Code(s): K58.9 - Irritable bowel syndrome, unspecified Category: Medical Qualifiers: Irritable bowel syndrome type: with both diarrhea and constipation Qualified Code(s): K58.2 - Mixed irritable bowel syndrome (5) SVT (supraventricular tachycardia): Comment: - Currently stablle on diltiazem and metoprolol tartrate 50 mg b.i.d. Code(s): I47.1 - Supraventricular tachycardia Category: Medical (6) Gout: Comment: Stable on allopurinol 100 mg once a day with no flares Code(s): M10.9 - Gout, unspecified Category: Medical Qualifiers: Gout site: unspecified site Gout etiology: unspecified cause Chronicity: chronic Presence of tophus: without tophus Qualified Code(s): M1A.9XX0 - Chronic gout, unspecified, without tophus (tophi) (7) Mixed hyperlipidemia: Comment: Currently stable on simvastatin 20 mg daily Code(s): E78.2 - Mixed hyperlipidemia Category: Medical (8) BOO on CPAP: Comment: - The patient reports using his CPAP for 5 hours nightly. - He is encouraged to continue with CPAP therapy. Code(s): G47.33 - Obstructive sleep apnea (adult) (pediatric); Z99.89 - Dependence on other enabling machines and devices Category: Medical Plan: Health Maintennace: - The patient will have routine blood work performed, as his last comprehensive labs were in April of the previous year. - A follow-up appointment is scheduled in 3 months. - Regarding future cerumen impaction removal, the patient was advised to use [id number] ear drops for a week prior to the procedure to soften the wax. - The patient reports regular use of a CPAP machine for obstructive sleep apnea. - The patient reports taking a daily probiotic. Patient was informed and verbally consented to the use of an ambient scribe for clinic note documentation during this visit. Plan I spoke with the patient about his concerns. Regarding the bump on his nose, I advised him to monitor it for any growth, in which case I would refer him to a insurance claims examiner. I explained that the recurring scab inside his nose is likely due to dryness and recommended he use a humidifier at home. We discussed his weak urinary stream, and I proposed doubling his tamsulosin dose to 0.8 mg to assess for improvement, to which he agreed. I confirmed his understanding of his heightened gastrocolic reflex and noted his effective self-management strategies, making no changes to his current regimen. We reviewed his current medication list, and he will continue them as prescribed. I instructed him to complete lab work one week before his three-month follow-up appointment. We also discussed preparation for any future ear cleaning procedures, and I advised the use of [id number] ear drops for a week beforehand to soften the wax. Orders: Orders Complete Blood Count Auto Diff 3 Months Z00.00 - Encounter for general adult medical examination without abnormal findings Comprehensive Met. Panel 3 Months Z00.00 - Encounter for general adult medical examination without abnormal findings Hepatitis A,B,C Profile 3 Months Z00.00 - Encounter for general adult medical examination without abnormal findings HIV Ab/Ag 3 Months Z00.00 - Encounter for general adult medical examination without abnormal findings Syphilis Screen 3 Months Z00.00 - Encounter for general adult medical examination without abnormal findings TSH reflex Free T4 3 Months Z00.00 - Encounter for general adult medical examination without abnormal findings Vitamin D 25-OH Total 3 Months Z00.00 - Encounter for general adult medical examination without abnormal findings Hemoglobin A1c 3 Months Z00.00 - Encounter for general adult medical examination without abnormal findings Lipid Panel 3 Months Z00.00 - Encounter for general adult medical examination without abnormal findings Microalbumin, Random (w Creat) 3 Months Z00.00 - Encounter for general adult medical examination without abnormal findings Medications: New tamsulosin 0.8 mg (2 x 0.4 mg) PO BEDTIME 90 caps 0RF Discontinued tamsulosin Discontinued Reason: Doctor's Order 0.4 mg PO BEDTIME 90 days 90 caps 3RF N20.0 - Calculus of kidney Patient Instructions: - Use a humidifier in your house, especially in the bedroom, to help with the dryness and scabbing in your nose. - Keep an eye on the bump on your nose. Let us know if it starts to get bigger, and we will refer you to a skin doctor. - Increase your dose of tamsulosin to 0.8 mg each night to help with your urinary stream. - Continue taking all your other current medications as prescribed for gout, heart rhythm, and cholesterol. - Continue using your CPAP machine every night. - Schedule a follow-up appointment in 3 months. - Please go to the lab to have your blood work done one week before your next appointment. - For any future ear cleaning appointments, use [id number] softening ear drops for at least a week beforehand.
[2025-04-29 09:14] VITALS: BP 114/70; PULSE 76; RESP 16; TEMP 36.2; O2SAT 95; BMI 39.7
--- OUTSIDE RECORDS SUMMARY | 2025-04-29 09:57 | XMS_ITS | Patient Health Record ---
Author Organization [facility] Address [address] [place] [id number] Care Team Providers Care Storehouse Clerk Name Role Phone Minoo (RETIRED) Ethan KAUFFMAN Primary Care Provide Milton Kate [phone] Allergies Allergen (clinical drug ingredient) Drug/Non Drug Allergy documented on EMR Reaction Allergy Type Onset Date Status certain enviromental/pollen and trees (uncoded) Unknown Allergy Active yeast in high concentrations (uncoded) Unknown Allergy Active Reason For Referral No Information Medications Medication SIG (Take, Route, Frequency, Duration) Notes Start Date End Date Status Cholestyramine 4 GM/DOSE Powder 1 scoop Orally once or Twice a day for loose stools; Duration: 90 Not-Taking/PRN Allopurinol 100 MG Tablet Oral; Duration: 90 Active Tamsulosin HCl 0.4 MG Capsule Oral; Duration: 90 Active dilTIAZem HCl ER Coated Beads 120 MG Capsule Extended Release 24 Hour Oral; Duration: 90 Active Vitamin B-6 100 MG Tablet Oral; Duration: 90 Active Ibuprofen 200 MG Tablet as directed as directed as directed Active Metoprolol Succinate 50 MG Tablet Extended Release 1 capsule Orally twice a day Active Simvastatin 20 MG Tablet 1 tablet in the evening Orally Once a day Active Dicyclomine HCl 10 MG Capsule TAKE 1 TO 2 CAPSULES BY MOUTH 30-60 MINUTES BEFORE EACH MEAL FOR ABDOMINAL CRAMPS/DIARRHEA; Duration: 90 Active Immunizations Vaccine Route Administration Date Status Comme nts Influenza Unknown 01/12/2018 Administered Influenza Unknown 01/12/2021 Administered Social History Social History Additional Details Category Social Info Options Details Miscellaneous: Marital status: 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 [place] Section Notes: Nonsmoker; no alcohol Nonsmoker; no alcohol Nonsmoker; no alcohol Nonsmoker; no alcohol Problems Problem Type SNOMED Code ICD Code Onset Dates Problem Status W/U Status Risk Notes Problem Screening for malignant neoplasm of colon (132708717) Encounter for screening for malignant neoplasm of colon (Z12.11) Active confirmed Problem Abdominal bloating (929130473) Abdominal bloating (R14.0) Active confirmed Problem Screening for malignant neoplasm of rectum (946802075) Encounter for screening for malignant neoplasm of rectum (Z12.12) Active confirmed Problem Preprocedural examination (890609065470037) Preprocedural examination (Z01.818) Active confirmed Problem History of adenomatous polyp of colon (338120507) Hx of adenomatous colonic polyps (Z86.010) Active confirmed Problem Irritable bowel syndrome (52862929) Other irritable bowel syndrome (K58.8) Active confirmed Problem Flatulence, eructation and gas pain (361576133) Abdominal gas pain (R14.1) Active confirmed Problem Altered bowel function (01286260) Change in bowel movement (R19.8) Active confirmed Plan Of Treatment Future Test Test Name Order Date COLONOSCOPY 09/29/2015 COLONOSCOPY 05/03/2021 Insurance Providers Payer Name Payer Address Payer Phone Subscriber Number Group Number Insured Name Patient Relationship to Insured Coverage Start Date Coverage End Date MEDICARE OF [place] [address] [place] [address] [id number] BLANCHE DOWD Self - patient is the insured [facility] [address] [place] [phone] [id number] BLANCHE DOWD Self - patient is the insured Medical (General) History Medical History History ICD Code Colonosocpy 05-22-2005--hyperplastic polyp Tachycardia --on metoprolol Denies [place],DM,CVA,Lung disease,renal dise ase Right Renal cell cancer---as below Prostate cancer--as below Hyperlipidemia Sleep apnea--uses CPAP Kidney stones-[facility] Colonoscopy 12/2015---1 small tubular adenoma removed, XRT telangiectasias, diverticulosis, internal hemorrhoids allergies- gets injections Surgical [facility], had XR T in 2014 Lap [facility] 09/2015-Dr. Estrella Right renal cancer--partial nephrectomy in 2000 at [facility]
== END 2025-04-29 10:00 | disposition home or self-care (01) ==
LOC: HO.HMCHD 09:06
PROVIDERS: PCP Internal Medicine; Visit Provider Student in an Organized Health Care Education/Training Program
DX: L98.9 Disorder of the skin and subcutaneous tissue, unspecified (principal); J34.89 Other specified disorders of nose and nasal sinuses; N40.1 Benign prostatic hyperplasia with lower urinary tract symptoms; K58.2 Mixed irritable bowel syndrome; I47.10 Supraventricular tachycardia, unspecified; M1A.9XX0 Chronic gout, unspecified, without tophus (tophi); E78.2 Mixed hyperlipidemia; G47.33 Obstructive sleep apnea (adult) (pediatric); Z99.89 Dependence on other enabling machines and devices

== ENCOUNTER → 2025-04-29 09:05 | Outpatient (BNVA) | payer MEDICARE, OTHER, SELFPAY | PROVIDERS: PCP Internal Medicine; Visit Provider Student in an Organized Health Care Education/Training Program | DX: K58.2 Mixed irritable bowel syndrome (principal); L98.9 Disorder of the skin and subcutaneous tissue, unspecified; J34.89 Other specified disorders of nose and nasal sinuses; N40.1 Benign prostatic hyperplasia with lower urinary tract symptoms; I47.10 Supraventricular tachycardia, unspecified; M1A.9XX0 Chronic gout, unspecified, without tophus (tophi); E78.2 Mixed hyperlipidemia; G47.33 Obstructive sleep apnea (adult) (pediatric); Z99.89 Dependence on other enabling machines and devices | CPT/HCPCS: 99212 ==

== ENCOUNTER 2025-05-01 10:22 | Outpatient (AMB) | payer MEDICARE, OTHER, SELFPAY ==
--- NOTE | 2025-05-01 10:22 | A.OFFVIS_ITS ---
Intake Visit Reasons: 6M KUB/PSA(set) Intake Note: Reason for Visit: Telehealth KUB/PSA Follow Up Urology Meds: Tamsulosin, Allopurinol, Vitamin B6 Blood Thinners: None Labs: PSA- <0.10 (04/07/2025) Imaging: KUB X-Ray 04/07/2025) Last PVR: None Linter Saw Sharpener Required: No Allergies Yeast (YEAST) Allergy (Intermediate, Verified 04/29/25 09:20) HIGH DOSES-SEES BLACK SPOTS, HOT FLASHES HPI Comments Details: Steven is a pleasant male. He is a patient of Dr. Crockett. He is seen for following urologic conditions - prostate cancer salvage radiation - renal cancer partial nephrectomy - nephrolithiasis Telemedicine Evaluation 15 min Consultation Rerecipe Megan Video Six-month follow-up KUB KUB bilateral small stones Continue vitamin B6 with allopurinol Review PSA in 12 month Had increased tamsulosin to 0.8 mg since he had some weakness of stream. Likely represents scarring at his anastomosis. Prostate Cancer initial management radical prostatectomy, EXPRT for rising PSA 10 years following Diagnosed in early Initial management with prostatectomy Had rising PSA 10 years after diagnosis Managed with radiation Currently has some difficulty with urination secondary to radiation stricture but not enough to warrant dilatation. Investigations - PSA 01/31 < 0.1, 08/01 <0.1, 02/01 <0.1, 05/06 <0.1, 04/07 <0.1 Renal cancer Partial nephrectomy 2004 Managed with regular imaging Nephrolithiasis Ongoing Stone analysis 07/03 uric acid 20%, calcium oxalate monohydrate 80% Management allopurinol, vitamin B6 24 hour urine - Surveillance imaging - 08/01 renal ultrasound - right side single cyst 1 cm, left side multiple cysts up to 2.5 cm, left side stone 6 mm - 10/01 CT punctate stones no evidence of recurrence of renal cancer - 07/05 renal ultrasound bilateral renal cysts up to 2.5 cm, small 4 mm stone right, small 4 mm stone left - 01/03 CT 4.5 x 6 mm left ureterovesicular junction calculus with mild left hydroureter and hydronephrosis. - 11/05 renal ultrasound bilateral stones right side 3 up to 8 mm versus left - 05/07 KUB bilateral small stones Therapeutic plan - allopurinol and vitamin B6 - recommend increased fluid intake [facility] Medical History (Updated 04/29/25 @ 10:20 by Darron Nicholson MD) Mixed hyperlipidemia Gout IBS (irritable bowel syndrome) Nasal dryness Lesion of skin of nose Morbid obesity On beta priya at home Sinus headache Obstructive sleep apnea (adult) (pediatric) BPH loc w urin obs/LUTS Radiation cystitis Gallstones HTN (hypertension) Renal stones Renal cancer Prostate cancer Hyperlipidemia BOO on CPAP SVT (supraventricular tachycardia) Surgical History History of lithotripsy History of colonoscopy (~08/22/21) History of biopsy of bladder History of prostatectomy History of partial nephrectomy History of laparoscopic cholecystectomy Family History (Updated 10/22/24 @ 10:24 by Dahiana Cornejo MA) Father No problems noted. Mother No problems noted. 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 Cognitive needs: No Hearing needs: No Vision needs: Yes (rx glasses) Review of Systems Const All systems reviewed & are unremarkable except as noted in HPI and below Reports no additional complaints Resp Reports no additional complaints GI Reports no additional complaints Reports as per HPI Musc Reports no additional complaints Physical Exam Telemedicine evaluation Appropriate responses Regular breathing rate and rhythm HEENT Head: Yes normal to inspection Ears: hearing grossly normal bilaterally Eyes General: appearance normal, both eyes and all related structures Neck Neck: Yes normal visual inspection Chest Chest palpation & inspection: normal inspection of the chest Resp Effort & Inspection: normal respiratory effort and able to speak in complete sentences Telehealth Telehealth Location of provider rendering services: practice address Location of patient: address on file Patient Identification confirmed using: Name, : Yes Telehealth method: video Patient verbally consented to treatment: Yes Patient verbally consented to billing insurance company: Yes Patient informed of any privacy concerns related to visit: Yes Assessment & Plan Assessment & Plan (1) Prostate cancer: Comment: Radical prostatectomy with rising PSA and radiation therapy 2009 Code(s): C61 - Malignant neoplasm of prostate Category: Medical (2) Nephrolithiasis: Comment: Uric acid stones Code(s): N20.0 - Calculus of kidney Category: Medical (3) Renal cancer: Code(s): C64.9 - Malignant neoplasm of unspecified kidney, except renal pelvis Category: Medical Plan Twelve month follow-up imaging and PSA Orders: Orders XR KUB 12 Months N20.0 - Calculus of kidney Prostate Specific Antigen 12 Months C61 - Malignant neoplasm of prostate Patient Instructions: This note is constructed using voice recognition software. While every effort has been made to ensure accuracy polymer materials consultant errors may have been included. Imaging studies, laboratory and physical exam results were discussed and reviewed in detail. No major barriers to patient understanding were identified. An opportunity to ask questions regarding the treatment plan was provided. All questions were answered. The patient expressed understanding and agreement with the above treatment plan. The patient is aware they should contact our office by phone for worsening of their current condition or the appearance of new urologic symptoms. Compliance is encouraged with any medications and followup testing that is ordered. It is a privilege to participate in the urologic care of your patient. If you have any questions or concerns regarding treatment for the above conditions, or other urologic issues, please do not hesitate to contact me. The office telephone contact is [phone]. Sincerely, Dr Yehuda Crump MD, [facility] - Urology Compassionate Specialist Care for the Genitourinary System Coding Level of Care Code Tele Est Pt Level 3 (43965) Add On Problem Visit Only Diagnoses Prostate cancer C61 Nephrolithiasis N20.0 Renal cancer C64.9
--- OUTSIDE RECORDS SUMMARY | 2025-05-01 11:46 | XMS_ITS | Patient Health Record ---
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 [place] Notes: Nonsmoker; no alcohol Nonsmoker; no alcohol Nonsmoker; no alcohol Nonsmoker; no alcohol Problems Problem Type SNOMED Code ICD Code Onset Dates Problem Status W/U Status Risk Notes Problem Screening for malignant neoplasm of colon (492047849) Encounter for screening for malignant neoplasm of colon (Z12.11) Active confirmed Problem Abdominal bloating (536461318) Abdominal bloating (R14.0) Active confirmed Problem Screening for malignant neoplasm of rectum (789916908) Encounter for screening for malignant neoplasm of rectum (Z12.12) Active confirmed Problem Preprocedural examination (380983605452208) Preprocedural examination (Z01.818) Active confirmed Problem History of adenomatous polyp of colon (341084070) Hx of adenomatous colonic polyps (Z86.010) Active confirmed Problem Irritable bowel syndrome (68481083) Other irritable bowel syndrome (K58.8) Active confirmed Problem Flatulence, eructation and gas pain (387543383) Abdominal gas pain (R14.1) Active confirmed Problem Altered bowel function (98352527) Change in bowel movement (R19.8) Active confirmed Plan Of Treatment Future Test Test Name Order Date COLONOSCOPY 09/29/2015 COLONOSCOPY 05/03/2021 Insurance Providers Payer Name Payer Address Payer Phone Subscriber Number Group Number Insured Name Patient Relationship to Insured Coverage Start Date Coverage End Date MEDICARE OF [place] [address] [place] [address] [id number] BLANCHE DOWD Self - patient is the insured [facility] [address] [place] [phone] [id number] BLANCHE DOWD Self - patient is the insured Medical (General) History Medical History History ICD Code Colonosocpy 05-22-2005--hyperplastic polyp Tachycardia --on metoprolol Denies NE,DM,CVA,Lung disease,renal dise ase Right Renal cell cancer---as below Prostate cancer--as below Hyperlipidemia Sleep apnea--uses CPAP Kidney stones-ESWL Colonoscopy 12/2015---1 small tubular adenoma removed, XRT telangiectasias, diverticulosis, internal hemorrhoids allergies- gets injections Surgical History Surgery Date(Month/Year[facility]--2007, had XR T in 2014 Lap [facility]Y 09/2015-Dr. Estrella Right renal cancer--partial nephrectomy in 2000 at [facility]
== END 2025-05-01 10:47 | disposition home or self-care (01) ==
LOC: HO.HUSH 10:22
PROVIDERS: PCP Internal Medicine; Visit Provider Urology
DX: C61 Malignant neoplasm of prostate (principal); N20.0 Calculus of kidney; C64.9 Malignant neoplasm of unspecified kidney, except renal pelvis
CPT/HCPCS: 99213; G2211